=== PATIENT | female | born 1990 | race African-American/Black ===

== ENCOUNTER 2017-09-11 17:32 | Emergency (ER) | payer OTHER ==
[~2017-09-11] VITALS: Ht 152.4 cm; Wt 52.2 kg
[~2017-09-11 17:32] MED LIST: HYDR-210; PENI500T
[2017-09-11] MEDS ORDERED: IV NORMAL SALINE 1,000ML 1,000 ML IV SCH ×2 (17:35→19:18)
[2017-09-11] MEDS ORDERED: ONDANSETRON PF 4 MG/2 ML VIAL. IV ONE (17:45)
[2017-09-11 18:52] LABS: BASO # 0.1 x10^3/uL (0.0-0.2); BASO % 1 % (0-3); EOS % 0 % (0-3); HEMATOCRIT 44.9 % (36.0-47.0); HEMOGLOBIN 15.3 g/dL (12.0-15.5); LYMPH # 1.9 x10^3/uL (1.0-4.8); LYMPH % 26 % (24-48); MEAN CORPUSCULAR HEMOGLOBIN 34 pg (25-35); MEAN CORPUSCULAR HGB CONC 34 g/dL (31-37); MEAN CORPUSCULAR VOLUME 99 fL (79-100); MONO # 0.6 x10^3/uL (0.0-1.1); MONO % 8 % (0-9); NEUT # 4.7 x10^3uL (1.8-7.7); NEUT % 65 % (31-73); PLATELET COUNT 204 x10^3/uL (140-400); RED BLOOD COUNT 4.53 x10^6/uL (3.50-5.40); WHITE BLOOD COUNT 7.2 x10^3/uL (4.0-11.0)
[2017-09-11 19:04] LABS: PREG TEST PT QUAL NEGATIVE (NEG)
[2017-09-11 19:11] LABS: ALBUMIN 4.2 g/dL (3.4-5.0); CALCIUM 9.1 mg/dL (8.5-10.1); DIRECT BILIRUBIN 0.1 mg/dL (0.0-0.2); GFR 79.9; POTASSIUM 3.6 mmol/L (3.5-5.1); TOTAL BILIRUBIN 0.5 mg/dL (0.2-1.0); TOTAL PROTEIN 7.8 g/dL (6.4-8.2)
[2017-09-11] MEDS ORDERED: IOHEXOL 240 MG/ML 50ML VIAL. PO ONE (19:15)
[2017-09-11] MEDS ORDERED: CONTRAST GIVEN MC PRN (19:15)
[2017-09-11] MEDS ORDERED: IOHEXOL 300 MG/ML 75 ML VIAL. IV ONE (19:15)
[2017-09-11 19:49] LABS: BARBITURATES NEG (NEG); BENZODIAZEPINES NEG (NEG); CANNABINOIDS POS (NEG); COCAINE NEG (NEG); METHADONE NEG (NEG); OPIATES POS (NEG); PHENCYCLIDINE NEG (NEG)
[2017-09-11 19:50] LABS: AMPHETAMINE/METHAMPHETAMINE NEG (NEG)
[2017-09-11 19:56] LABS: CLARITY,URINE CLOUDY; COLOR,URINE YELLOW; GLUCOSE,URINE NEG (NEG)
[2017-09-11 19:58] LABS: BACTERIA,URINE 0 /HPF (0-FEW); BILIRUBIN,URINE NEG (NEG); NITRITE,URINE NEG (NEG); SQUAMOUS EPITHELIAL CELL,UR MOD /LPF; UROBILINOGEN,URINE 0.2 mg/dL (0.2 mg/dL)
--- NOTE | 2017-09-11 20:54 | RAD ---
CT SCAN OF THE ABDOMEN AND PELVIS WITH IV CONTRAST. History: Left lower quadrant abdominal pain nausea and vomiting and diarrhea for 2 days Comparison:None. Procedure: Contiguous axial images of the abdomen and pelvis were performed after the administration of 75 cc of Isovue 370 IV contrast and oral contrast. CT Abdomen with contrast: Findings: Liver: Unremarkable Spleen: Unremarkable Pancreas: Unremarkable Adrenal Glands: Unremarkable Kidneys: Unremarkable There is no mass or lymphadenopathy. There is no free air. There is no free fluid. There has been prior cholecystectomy. Impression: No acute findings. End Impression CT Pelvis with Contrast: Findings: The urinary bladder appears normal. There is mild free fluid in the pelvis. There is a small collapsing enhancing cyst in the right ovary that measures 10 mm x 20 mm. Is mild wall thickening of the left colon without surrounding inflammation. The appendix is normal. There is no lymphadenopathy. Impression: 1. Mild free fluid in the pelvis this is eccentric to the right and could be secondary to a ruptured ovarian cyst. This assumes the patient is not . 2. Mild wall thickening of the left colon could be secondary to nondistention however mild inflammatory or infectious colitis is possible. There is no diverticulitis. PQRS Compliance Statement: One or more of the following individualized dose reduction techniques were utilized for this examination: 1. Automated exposure control 2. Adjustment of the mA and/or kV according to patient size 3. Use of iterative reconstruction technique Electronically signed by: Chino Pena III, MD (09/11/2017 8:51 PM) [facility]
--- NOTE | 2017-09-11 21:00 | PHYS DOC ---
General Chief Complaint: ABDOMINAL PAIN Stated Complaint: ABD PAIN Time Seen by MD: 18:19 Source: patient Exam Limitations: no limitations Problems: History of Present Illness Initial Comments Patient is a 26-year-old female who arrives to the emergency department via EMS complaining of abdominal pain. Patient states that she saw her primary care doctor in [facility] earlier today. She says that she was sent to the emergency department for evaluation to rule out acute appendicitis. She states that she's had chronic abdominal pains for the past 2 years, she says she's been seen at various hospitals throughout the [facility]. She was seen in the [place] emergency department 2 nights ago for the same symptoms. Patient states that current abdominal pain complaints started this past Friday , she says she's had intermittent left lower quadrant discomfort described as sharp and crampy, severe, with decreased appetite and several episodes of nonbloody vomiting and diarrhea. She denies any travel or bad food exposure her doctor in [place] gave her atropine, morphine, and Phenergan prior to sending her here. She's had some chills but no measured fevers as well as body aches and states she really hasn't had any by mouth intake since Friday but has maintained her full work schedule. ED vitals: 98.6, 121 (normalizes to 86), 108/58, 98% room air Timing/Duration: getting worse, other Severity: severe Modifying Factors: worse with eating Associated Symptoms: loss of appetite, nausea/vomiting, other Allergies: Coded Allergies: No Known Drug Allergies (Unverified , 10/12/13) Past Medical History Medical History: no pertinent history (chronic abdominal pain) Surgical History: cholecystectomy (exploratory laparotomy) Family History Significant Family History: no pertinent family hx Social History Smoker: cigarettes Alcohol: occasionally Drugs: marijuana Review of Systems Constitutional: see HPI Respiratory: denies cough, denies shortness of breath, denies wheezing Cardiovascular: denies chest pain, denies palpitations, denies syncope Gastrointestinal: see HPI Genitourinary: denies dysuria, denies frequency, denies hematuria Musculoskeletal: denies back pain, denies joint swelling, denies neck pain Psychiatric/Neurological: denies headache, denies numbness, denies paresthesia Physical Exam General Appearance: WD/WN, no apparent distress (altered on arrival with medications, mentation cleared within one hour of arrival) Eyes: bilateral eye normal inspection, bilateral eye PERRL, bilateral eye EOMI Ear, Nose, Throat: hearing grossly normal, normal ENT inspection, normal pharynx Neck: non-tender, supple Respiratory: normal breath sounds, no respiratory distress Cardiovascular: normal peripheral pulses, regular rate, rhythm Gastrointestinal: soft (nondistended, left lower quadrant tenderness without rebound guarding or palpable mass, bowel sounds appear normal, negative McBurney ) Back: no CVA tenderness, no vertebral tenderness Extremities: non-tender, normal inspection 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 PHYSICIAN: SEAN WHATLEY DO REASON: LLQ pain - PENDING TEST PROCEDURE: CT ABD PELV W/ORAL&IV CONTRAST CT SCAN OF THE ABDOMEN AND PELVIS WITH IV CONTRAST. History: Left lower quadrant abdominal pain nausea and vomiting and diarrhea for 2 days Comparison:None. Procedure: Contiguous axial images of the abdomen and pelvis were performed after the administration of 75 cc of Isovue 370 IV contrast and oral contrast. CT Abdomen with contrast: Findings: Liver: Unremarkable Spleen: Unremarkable Pancreas: Unremarkable Adrenal Glands: Unremarkable Kidneys: Unremarkable There is no mass or lymphadenopathy. There is no free air. There is no free fluid. There has been prior cholecystectomy. Impression: No acute findings. End Impression CT Pelvis with Contrast: Findings: The urinary bladder appears normal. There is mild free fluid in the pelvis. There is a small collapsing enhancing cyst in the right ovary that measures 10 mm x 20 mm. Is mild wall thickening of the left colon without surrounding inflammation. The appendix is normal. There is no lymphadenopathy. Impression: 1. Mild free fluid in the pelvis this is eccentric to the right and could be secondary to a ruptured ovarian cyst. This assumes the patient is not . 2. Mild wall thickening of the left colon could be secondary to nondistention however mild inflammatory or infectious colitis is possible. There is no diverticulitis. RS Compliance Statement: One or more of the following individualized dose reduction techniques were utilized for this examination: 1. Automated exposure control 2. Adjustment of the mA and/or kV according to patient size 3. Use of iterative reconstruction technique Electronically signed by: Bud Naik III, MD (09/11/2017 8:51 PM) [facility] DICTATED AND SIGNED BY: BUD NAIK III, MD DATE: 09/11/172046 CC: BUD ROBERTSON MD; SEAN WHATLEY DO ~ Patient had a very prolonged ED course due to high ED patient volume. She received 4 mg of Zofran and 2 L normal saline boluses IV through her ED course. Upon receipt of all results I discussed the need for inpatient admission to monitor creatine kinase and provide intravenous hydration. I discussed rhabdomyolysis and the possibility of permanent kidney disease if left untreated. The patient was initially agreeable to admission however shortly thereafter did advise me of her wish to go home. I discussed risks and benefits of staying versus leaving extensively with the patient. Potential risks of leaving specifically discussed were permanent kidney disease, loss of quality of life, and . After discussing these issues for a prolonged period patient repeated her wishes to go home. She advised that she would sign AGAINST MEDICAL ADVICE. Although the patient did receive medications hours ago and Marisabel she hasn't received any narcotic medications at this facility and is alert and oriented exhibiting UCAR capacity. She has 2 friends at the bedside and they concur that the patient is at her baseline mental status. She is fully awake and alert with no slurring or evidence of being altered and therefore is capable of signing herself out. I discussed signs and symptoms to monitor for as well as indications for urgent return to the department. I discussed inpatient treatment extensively after her questions were answered to her satisfaction and she continued to persist with her wishes to leave AGAINST MEDICAL ADVICE. I discussed [id number] prescription medications, and time off from work, aggressive hydration, and the need to have her creatine kinase checked first thing in the morning with her primary care doctor. The patient was reassured she can return at any time and she signed herself out AGAINST MEDICAL ADVICE. Impressions: Rhabdomyolysis Gastroenteritis Dehydration Acute on chronic abdominal pain Marijuana and tobacco abuse Departure Time of Disposition: 22:16 Disposition: 07 AGAINST MEDICAL ADVICE Diagnosis: infectious colitis, rhabdomyolysis Condition: STABLE Patient Instructions: Rhabdomyolysis, Viral Gastroenteritis, [id number] Additional Instructions: As discussed you have chosen to sign out AGAINST MEDICAL ADVICE. You understand you may return at any time for further evaluation and treatment. Off work through Friday. Aggressive hydration with Gatorade and water. Recommend stop smoking seek medical assistance if necessary. Prescription: [place] 5 mg quantity 10, dicyclomine, Zofran ODT Recommended you follow-up with a doctor tomorrow morning to recheck your creatine kinase (1037 in ED tonight). Return to ED with new or changing symptoms and as needed. SEAN WHATLEY DO Sep 11, 2017 21:00
[2017-09-11 21:26] VITALS: BP 105/55
[2017-09-11] MEDS ORDERED: HYDR-971 PO (22:16)
[2017-09-11] MEDS ORDERED: DICY20TA3 PO (22:16)
[2017-09-11] MEDS ORDERED: ONDA4TAB10 PO (22:16)
== END 2017-09-11 22:34 | disposition left against medical advice (07) ==
LOC: ER 17:32
DX: A09 Infectious gastroenteritis and colitis, unspecified (principal); M62.82 Rhabdomyolysis; E86.0 Dehydration; G89.29 Other chronic pain; F17.210 Nicotine dependence, cigarettes, uncomplicated; F12.10 Cannabis abuse, uncomplicated; Z90.49 Acquired absence of other specified parts of digestive tract
CPT/HCPCS: 36415; 74177; 80048; 80076; 80307; 81001; 82550; 83690; 84703; 85025; 85610; 85730; 87086; 96360; 96361; 99285; G0480; Q9966; Q9967; G0479; J7030

== ENCOUNTER 2019-01-22 10:51 | Emergency (ER) | payer SELFPAY ==
[~2019-01-22] VITALS: Ht 152.4 cm; Wt 59.0 kg
[~2019-01-22 10:51] MED LIST changes: +DICY20TA3 PO; +HYDR-3165 PO; +ONDA4TAB10 PO
[2019-01-22] MEDS ORDERED: IV RINGERS SOLUTION,LACTATED 1,000 ML IV SCH (11:09)
[2019-01-22] MEDS ORDERED: IOHEXOL 240 MG/ML 50ML VIAL. ONE (11:15)
--- NOTE | 2019-01-22 11:19 | PHYS DOC ---
Past History Past Medical History: No Pertinent History Past Surgical History: Cholecystectomy, , Other Additional Past Surgical Histo: exploratory laparoscopy Smoking: Cigarettes, Less than 1pk/day Alcohol Use: Occasionally Drug Use: Marijuana Adult General Chief Complaint Chief Complaint: ABDOMINAL PAIN HPI HPI Patient is a 28-year-old female presents with left lower quadrant abdominal pain , nausea, vomiting, diarrhea. This has been present various forms, waxing and waning for the past week or so. Patient was recently admitted and discharged from [facility], as well as being seen last night and receiving IV fluids for this condition. Patient is working on arranging GI follow-up for this. This has been more of a long-term issue as well. Some of the previous diagnoses include ulcerative colitis, Crohn's, as well as cyclic vomiting. Patient denies any recent use of cannabinoids, last use being several weeks ago. Denies any other recreational drugs. Denies any relief with the medications that aren't prescribed to include ondansetron and Compazine both as pills as well as suppositories. Denies any blood in the stool or emesis. Denies any recent travel, no trauma. No Recent changes in weight. Warmth seems to make the discomfort better.[] Review of Systems Review of Systems Constitutional: Denies fever or chills [] Eyes: Denies change in visual acuity, redness, or eye pain [] HENT: Denies nasal congestion or sore throat [] Respiratory: Denies cough or shortness of breath [] Cardiovascular: No chest pain or palpitations[] GI: See history of present illness[] : Denies dysuria or hematuria [] Musculoskeletal: Denies back pain or joint pain [] Integument: Denies rash or skin lesions [] Neurologic: Denies headache, focal weakness or sensory changes [] Endocrine: Denies polyuria or polydipsia [] All other systems were reviewed and found to be within normal limits, except as documented in this note. Current Medications Current Medications Current Medications Medications (Trade) Dose Ordered Sig/Geni Start Time Stop Time Status Last Admin Dose Admin Hyoscyamine (Anaspaz) 0.25 mg 1X ONCE 01/22/19 11:15 01/22/19 11:16 UNV Lactated Ringer's 1,000 ml @ 1,000 mls/hr Q1H 01/22/19 11:09 01/22/19 12:08 UNV Metoclopramide HCl (Reglan Vial) 10 mg 1X ONCE 01/22/19 11:15 01/22/19 11:16 UNV Allergies Allergies Allergies Coded Allergies Type Severity Reaction Last Updated Verified No Known Drug Allergies 10/12/13 No Physical Exam Physical Exam Constitutional: Well developed, well nourished, moderate discomfort, non-toxic appearance. [] HENT: Normocephalic, atraumatic, bilateral external ears normal, oropharynx moist, no oral exudates, nose normal. [] Eyes: PERRLA, EOMI, conjunctiva normal, no discharge. [] Neck: Normal range of motion, no tenderness, supple, no stridor. [] Cardiovascular:Heart rate regular rhythm, no murmur [] Lungs & Thorax: Bilateral breath sounds clear to auscultation [] Abdomen: Bowel sounds normal, soft, tenderness in the left lower quadrant, no rebound, no guarding, no rigidity, rolls over in the bed without any difficulty , on initial walking into the room, patient was laying prone on the bed with the back of the bed slightly up causing her to extend her abdomen, no masses, no pulsatile masses. [] Skin: Warm, dry, no erythema, no rash. [] Back: No tenderness, no CVA tenderness. [] Extremities: No tenderness, no cyanosis, no clubbing, ROM intact, no edema. [] Neurologic: Alert and oriented X 3, normal motor function, normal sensory function, no focal deficits noted. [] Psychologic: Affect normal, judgement normal, mood normal. [] EKG EKG [] Radiology/Procedures Radiology/Procedures Examination: CT ABD PELV W/ORAL IV CONTRAST History: LLQ PAIN N/V FOR 2 DAYS Comparison/Correlation: 09/11/2017 CT abdomen and pelvis with IV contrast Findings: Axial images of the abdomen and pelvis were obtained following IV contrast. Sagittal and coronal reformatted images were provided. Oral contrast was administered. Degenerative narrowing bases are clear. Cholecystectomy noted. Liver, spleen, pancreas, adrenal glands, and kidneys are unremarkable. Appendix is normal. No bowel obstruction or extraluminal gas. Moderate quantity of stool in the colon noted. No ascites or pelvic free fluid. Enlarged fibroid uterus noted. Right adnexal 2.7 cm x 1.5 cm cystic structure is probably physiologic. No enlarged abdominal or pelvic lymph nodes. Bilateral L5 pars interarticularis fractures are present without malalignment of the vertebral bodies. Impression: Right adnexal cyst is physiologic in appearance. Fibroid uterus. No suspicious acute inflammatory process involving abdomen or pelvis. Bilateral L5 pars interarticularis fractures are present unchanged upon correlation with the prior exam[] Course & Med Decision Making Course & Med Decision Making Pertinent Labs and Imaging studies reviewed. (See chart for details) ED course: Patient arrived, placed in bed, and tolerated exam well. She received IV fluids along with antiemetics and antispasmodics. She was reporting feeling better but not fully so an additional dose of antispasmodics were given intramuscularly. She was able to tolerate oral contrast. She was transported to and from [place] without any complications. After the return of the laboratory and imaging findings, these were discussed with the patient who voiced understanding. All questions were answered. Medical decision making: There does not appear to be intractable nausea or vomiting, no significant electrolyte abnormality, no evidence of urinary tract infection or pyelonephritis. No evidence of intra-abdominal significant issue in the location of her pain in the left lower quadrant. No diverticulitis, obstruction, perforation, and based on history and exam no evidence of tubo- ovarian abscess nor ovarian torsion. Patient does need to follow up with GI. Also concerned about possibility of cannabinoid hyperemesis syndrome given her desire for warm blankets in the location of the discomfort along with a positive drug screen for cannabinoids when she reports that she has not used any for 6 weeks.[] Dragon Disclaimer Dragon Disclaimer This electronic medical record was generated, in whole or in part, using a voice recognition dictation system. Departure Departure: Impression: Primary Impression: Abdominal pain Additional Impression: Nausea vomiting and diarrhea Disposition: HOME, SELF-CARE Condition: IMPROVED Referrals: BUD ROBERTSON MD (PCP) Follow-up in 2 days Patient Instructions: Abdominal Pain, Diet for Diarrhea, Adult, Nausea and Vomiting Additional Instructions: Drink plenty of fluids, frequent small sips. No fatty foods, no milk, and no pepper for the next 48 hours. For the next 48 hours eat a diet rich in carbohydrates with foods such as bananas, rice, applesauce, and toast. Follow- up with your doctor in 2 days. Do not use any drugs or medications that are not prescribed for you, they may kill you. Return to the ER if unable to tolerate liquids or any other concerns. Scripts Metoclopramide Hcl (REGLAN) 10 Mg Tablet 10 MG PO QID for nausea and vomiting, #30 TAB Prov: ISATU GARRIDO DO 01/22/19 Meloxicam (MELOXICAM) 7.5 Mg Tablet 7.5 MG PO DAILY for PAIN, #20 TAB Prov: ISATU GARRIDO DO 01/22/19 Hyoscyamine Sulfate (LEVSIN) 0.125 Mg Tablet 0.125 MG PO QID for abdominal pain/cramping, #30 TAB Prov: ISATU GARRIDO DO 01/22/19 Problem Qualifiers Primary Impression: Abdominal pain Abdominal location: unspecified location Qualified Codes: R10.9 - Unspecified abdominal pain ISATU GARRIDO DO Jan 22, 2019 11:19
[2019-01-22 11:35] LABS: BASO # 0.1 x10^3/uL (0.0-0.2); BASO % 1 % (0-3); EOS % 1 % (0-3); HEMATOCRIT 42.6 % (36.0-47.0); HEMOGLOBIN 14.8 g/dL (12.0-15.5); LYMPH # 2.9 x10^3/uL (1.0-4.8); LYMPH % 35 % (24-48); MEAN CORPUSCULAR HEMOGLOBIN 34 pg (25-35); MEAN CORPUSCULAR HGB CONC 35 g/dL (31-37); MEAN CORPUSCULAR VOLUME 98 fL (79-100); MONO # 0.7 x10^3/uL (0.0-1.1); MONO % 9 % (0-9); NEUT # 4.6 x10^3uL (1.8-7.7); NEUT % 55 % (31-73); PLATELET COUNT 341 x10^3/uL (140-400); RED BLOOD COUNT 4.34 x10^6/uL (3.50-5.40); RED CELL DISTRIBUTION WIDTH 13.9 % (11.5-14.5); WHITE BLOOD COUNT 8.4 x10^3/uL (4.0-11.0)
[2019-01-22] MEDS ORDERED: HYOSCYAMINE 0.125 MG TAB.RAPDIS PO ONE (11:45)
[2019-01-22] MEDS ORDERED: METOCLOPRAMIDE HCL 10 MG/2 ML VIAL. IV ONE (11:45)
[2019-01-22] MEDS ORDERED: KETOROLAC 15 MG/ML VIAL. ONE (11:45)
[2019-01-22 11:48] LABS: ALBUMIN/GLOBULIN RATIO 1.2 (1.0-1.7); CALCIUM 8.7 mg/dL (8.5-10.1); CREATININE 0.8 mg/dL (0.6-1.0); GFR 101.9; TOTAL BILIRUBIN 0.6 mg/dL (0.2-1.0); TOTAL PROTEIN 7.4 g/dL (6.4-8.2)
[2019-01-22] MEDS ORDERED: IOHEXOL 300 MG/ML 75 ML VIAL. IV ONE (11:55)
[2019-01-22] MEDS ORDERED: KETOROLAC 15 MG/ML VIAL. IV ONE (12:00)
[2019-01-22 12:05] LABS: AMPHETAMINE/METHAMPHETAMINE NEG (NEG); BARBITURATES NEG (NEG); BENZODIAZEPINES NEG (NEG); CANNABINOIDS POS (NEG); COCAINE NEG (NEG); METHADONE NEG (NEG); OPIATES NEG (NEG); PHENCYCLIDINE NEG (NEG)
[2019-01-22] MEDS ORDERED: DICYCLOMINE 20 MG/2 ML AMPUL. IM ONE (13:15)
--- NOTE | 2019-01-22 13:22 | RAD ---
Examination: CT ABD PELV W/ORAL IV CONTRAST History: LLQ PAIN N/V FOR 2 DAYS Comparison/Correlation: 09/11/2017 CT abdomen and pelvis with IV contrast Findings: Axial images of the abdomen and pelvis were obtained following IV contrast. Sagittal and coronal reformatted images were provided. Oral contrast was administered. Degenerative narrowing bases are clear. Cholecystectomy noted. Liver, spleen, pancreas, adrenal glands, and kidneys are unremarkable. Appendix is normal. No bowel obstruction or extraluminal gas. Moderate quantity of stool in the colon noted. No ascites or pelvic free fluid. Enlarged fibroid uterus noted. Right adnexal 2.7 cm x 1.5 cm cystic structure is probably physiologic. No enlarged abdominal or pelvic lymph nodes. Bilateral L5 pars interarticularis fractures are present without malalignment of the vertebral bodies. Impression: Right adnexal cyst is physiologic in appearance. Fibroid uterus. No suspicious acute inflammatory process involving abdomen or pelvis. Bilateral L5 pars interarticularis fractures are present unchanged upon correlation with the prior exam PQRS Compliance Statement: One or more of the following individualized dose reduction techniques were utilized for this examination: 1. Automated exposure control 2. Adjustment of the mA and/or kV according to patient size 3. Use of iterative reconstruction technique Electronically signed by: Steve Rosario MD (01/22/2019 1:19 PM) [facility]
[2019-01-22 14:02] LABS: BACTERIA,URINE MOD /HPF (0-FEW); BILIRUBIN,URINE NEG (NEG); CLARITY,URINE HAZY; COLOR,URINE YELLOW; GLUCOSE,URINE NEG (NEG); NITRITE,URINE NEG (NEG); UROBILINOGEN,URINE 0.2 mg/dL (0.2 mg/dL)
[2019-01-22 14:03] LABS: SQUAMOUS EPITHELIAL CELL,UR MOD /LPF
[2019-01-22] MEDS ORDERED: MELO7.5T29 PO (14:12)
[2019-01-22] MEDS ORDERED: METO10TA81 PO (14:12)
[2019-01-22] MEDS ORDERED: HYOS0.1264 PO (14:12)
[2019-01-22 14:32] VITALS: BP 123/75
== END 2019-01-22 14:41 | disposition home or self-care (01) ==
LOC: ER 10:51
DX: R10.32 Left lower quadrant pain (principal); R11.2 Nausea with vomiting, unspecified; R19.7 Diarrhea, unspecified; F17.210 Nicotine dependence, cigarettes, uncomplicated; Z90.49 Acquired absence of other specified parts of digestive tract; Z98.890 Other specified postprocedural states
CPT/HCPCS: 36415; 74177; 80053; 80307; 81001; 81025; 83690; 85025; 85610; 87086; 96361; 96372; 96374; 96375; 99285; J0500; J1885; J2765; J7120; Q9967

== ENCOUNTER 2019-12-01 10:44 | Emergency (ER) | payer SELFPAY ==
[~2019-12-01] VITALS: Ht 152.4 cm; Wt 62.0 kg
[~2019-12-01 10:44] MED LIST changes: +HYOS0.1264 PO; +MELO7.5T29 PO; +METO10TA81 PO
[2019-12-01] MEDS ORDERED: FAMOTIDINE 20 MG/2 ML VIAL IVP ONE (11:45)
[2019-12-01] MEDS ORDERED: ONDANSETRON PF 4 MG/2 ML VIAL. IVP ONE (11:45)
[2019-12-01] MEDS ORDERED: MVI, ADULT NO.4 WITH VIT K 10 ML, FOLIC ACID INJ 1 MG, THIAMINE INJ 100 MG in IV RINGER... IV ONE ×4 (11:45)
[2019-12-01 12:00] LABS: BASO # 0.1 x10^3/uL (0.0-0.2); BASO % 1 % (0-3); EOS % 0 % (0-3); HEMATOCRIT 40.1 % (36.0-47.0); HEMOGLOBIN 13.2 g/dL (12.0-15.5); LYMPH # 1.9 x10^3/uL (1.0-4.8); LYMPH % 16 % (24-48); MEAN CORPUSCULAR HEMOGLOBIN 33 pg (25-35); MEAN CORPUSCULAR HGB CONC 33 g/dL (31-37); MEAN CORPUSCULAR VOLUME 100 fL (79-100); MONO # 0.6 x10^3/uL (0.0-1.1); MONO % 5 % (0-9); NEUT # 9.1 x10^3uL (1.8-7.7); NEUT % 78 % (31-73); PLATELET COUNT 277 x10^3/uL (140-400); RED BLOOD COUNT 4.01 x10^6/uL (3.50-5.40); RED CELL DISTRIBUTION WIDTH 14.5 % (11.5-14.5); WHITE BLOOD COUNT 11.7 x10^3/uL (4.0-11.0)
[2019-12-01 12:09] LABS: CALCIUM 8.7 mg/dL (8.5-10.1); CREATININE 0.5 mg/dL (0.6-1.0); GFR 174.1; POTASSIUM 3.8 mmol/L (3.5-5.1)
[2019-12-01 12:15] LABS: ALBUMIN 3.7 g/dL (3.4-5.0); ALBUMIN/GLOBULIN RATIO 1.2 (1.0-1.7); MAGNESIUM 1.8 mg/dL (1.8-2.4); TOTAL BILIRUBIN 0.2 mg/dL (0.2-1.0); TOTAL PROTEIN 6.9 g/dL (6.4-8.2)
[2019-12-01] MEDS ORDERED: diphenhydrAMINE 50 MG/ML VIAL IVP ONE (12:15)
[2019-12-01] MEDS ORDERED: METOCLOPRAMIDE HCL 10 MG/2 ML VIAL. IVP ONE (12:15)
--- NOTE | 2019-12-01 12:15 | PHYS DOC ---
Past History Past Medical History: Other Past Surgical History: Cholecystectomy, , Other Additional Past Surgical Histo: exploratory laparoscopy Smoking: Cigarettes, Less than 1pk/day Alcohol Use: Occasionally Drug Use: Marijuana Adult General Chief Complaint Chief Complaint: ABDOMINAL PAIN HPI HPI Patient is a 29-year-old female who presents to the ED with abdominal pain and nausea/vomiting. Patient is in her 8th week of gestation. Patient stated that her abdominal pain began at roughly 0500 this morning with nausea/vomiting ass ociated with it. She describes as a burning left sided abdominal pain. The pain is constant in nature. She states that the pain radiates from her left upper quadrant to the left lower quadrant. She has vomited approximately 20 times. She tried 4 mg of Zofran this morning and a Phenergan suppository without improvement of her symptoms. She currently rates her pain as a 10 out of 10. History of present illness is limited due to patient noncooperation and agitation due to abdominal discomfort. Reports history of recent admission for same. Review of Systems Review of Systems Constitutional: Denies fever or chills GI: Admits abdominal pain, nausea, or vomiting : Denies vaginal bleeding, admits vaginal discharge at her baseline Integument: Denies rash or skin lesions Review of systems limited due to patient's noncooperation and agitated secondary to abdominal discomfort Current Medications Current Medications Current Medications Medications (Trade) Dose Ordered Sig/Geni Start Time Stop Time Status Last Admin Dose Admin Famotidine (Pepcid Vial) 20 mg 1X ONCE 12/01/19 11:45 12/01/19 11:46 DC 12/01/19 11:53 20 MG Multivitamins/ Minerals 10 ml/ Folic Acid 1 mg/ Thiamine HCl 100 mg/Lactated Ringer's 1,011.3 ml @ 1,011.3 mls/hr 1X ONCE 12/01/19 11:45 12/01/19 12:44 Ondansetron HCl (Zofran) 4 mg 1X ONCE 12/01/19 11:45 12/01/19 11:46 DC 12/01/19 11:54 4 MG Allergies Allergies Allergies Coded Allergies Type Severity Reaction Last Updated Verified haloperidol Allergy Unknown 01/22/19 Yes Physical Exam Physical Exam Constitutional: Well developed, well nourished, mild distress, uncomfortable appearance HENT: Normocephalic, atraumatic, oropharynx dry Eyes: EOMI, conjunctiva normal, no discharge Cardiovascular: Heart rate rapid with a regular rhythm Lungs & Thorax: Bilateral breath sounds clear to auscultation, no wheezing Abdomen: Soft, left-sided tenderness to palpation Skin: Warm, dry, no erythema, no rash Extremities: No tenderness, ROM intact, no edema Neurologic: Alert and oriented, no focal deficits noted Psychologic: Affect agitated and anxious, judgment normal Current Patient Data Lab Results Laboratory Tests Test 12/01/19 11:35 White Blood Count 11.7 x10^3/uL (4.0-11.0) H Red Blood Count 4.01 x10^6/uL (3.50-5.40) Hemoglobin 13.2 g/dL (12.0-15.5) Hematocrit 40.1 % (36.0-47.0) Mean Corpuscular Volume 100 fL (79-100) Mean Corpuscular Hemoglobin 33 pg (25-35) Mean Corpuscular Hemoglobin Concent 33 g/dL (31-37) Red Cell Distribution Width 14.5 % (11.5-14.5) Platelet Count 277 x10^3/uL (140-400) Neutrophils (%) (Auto) 78 % (31-73) H Lymphocytes (%) (Auto) 16 % (24-48) L Monocytes (%) (Auto) 5 % (0-9) Eosinophils (%) (Auto) 0 % (0-3) Basophils (%) (Auto) 1 % (0-3) Neutrophils # (Auto) 9.1 x10^3uL (1.8-7.7) H Lymphocytes # (Auto) 1.9 x10^3/uL (1.0-4.8) Monocytes # (Auto) 0.6 x10^3/uL (0.0-1.1) Eosinophils # (Auto) 0.0 x10^3/uL (0.0-0.7) Basophils # (Auto) 0.1 x10^3/uL (0.0-0.2) EKG EKG [] Radiology/Procedures Radiology/Procedures PROCEDURE: OB <14 WKS W/TV Examination: OB <14 WKS W/TV History: Abdominal pain Comparison/Correlation: None Findings: OB ultrasound exam was performed. Myometrium is unremarkable. No subchorionic hemorrhage. Intrauterine gestational sac is present. pole is present with length of 1.81 cm corresponding to 8 weeks 2 days. heart rate is 173 bpm. Small echogenic foci present involving the pole without shadowing and these are of indeterminate significance. Myometrium is unremarkable. Ultrasound EDC is 07/10/2020 Uterus measures 12.5 cm x 3.5 cm x 6.4 cm. Myometrium is normal. Cervical length is 5.03 cm. Right ovary measures 2.5 cm x 1.9 cm x 1.3 cm left ovary measures 2.2 cm x 1.4 cm x 1.6 cm. No adnexal mass. No pelvic free fluid. Impression: Single living intrauterine gestation corresponding to 8 weeks 2 days by crown-rump length. Echogenic foci are present involving the pole and are of indeterminate significance. No shadowing definite for calcification. Interval follow-up ultrasound examination for further evaluation should be considered. No subchronic hemorrhage. Electronically signed by: Steve Rosario MD (12/01/2019 2:25 PM) [facility] Course & Med Decision Making Course & Med Decision Making Pertinent Labs and Imaging studies reviewed. (See chart for details) History of present illness and ROS limited due to patient's noncooperation and agitated secondary to abdominal discomfort Patient is a 29-year-old 8 week female who presents to the ED with acute abdominal pain and nausea/vomiting. He was found she states the abdominal pain and vomiting started at 0500 this morning. She describes her pain as a constant burning pain located on the left side. She states that it radiates from her left upper quadrant into her left lower quadrant. She has nausea/vomiting associated with the pain. She tried Zofran and a Phenergan suppository at home with no improvement of her symptoms. She rates it as a 10 out of 10. Hx of recent admission for same at outside facility. In the ED she was evaluated for emergent causes of abdominal pain in . An abdominal ultrasound was ordered and showed IUG which appeared appropriate. Appropriate labs were ordered and posted to chart. She was given IV banana bag for dehydration and replacement of any deficit vitamins for . Pain and nausea addressed appropriately. UA did note some mild ketosis. UDS positive f or THC. Patient advised of risk of THC abuse and association with cyclic vomiting syndrome. Patient reports she has "heard all that before." Patient stable for discharge with outpatient follow-up with PCP/OB. Discussed findings and plan with patient, who acknowledges understanding and agreement. Dragon Disclaimer Dragon Disclaimer This electronic medical record was generated, in whole or in part, using a voice recognition dictation system. Departure Departure: Impression: Primary Impression: Cyclic vomiting syndrome Additional Impressions: Hyperemesis gravidarum Tetrahydrocannabinol (THC) use disorder, mild, abuse Disposition: 01 HOME, SELF-CARE Condition: STABLE Referrals: BUD ROBERTSON MD (PCP) Patient Instructions: Cyclic Vomiting Syndrome, Drug Abuse, FAQs, Hyperemesis Gravidarum Scripts Capsaicin (CAPSAICIN) 42.5 Gm Cream..g. 1 MARILY TP TID PRN for PAIN, #1 TUBE 0 Refills 0.025% Prov: RUBÉN WALL DO 12/01/19 Famotidine (PEPCID) 20 Mg Tablet 1 TAB PO BID for gastritis, #10 TAB Prov: RUBÉN WALL DO 12/01/19 Ondansetron (ONDANSETRON ODT) 4 Mg Tab.rapdis 1 TAB PO PRN Q6-8HRS PRN for NAUSEA, #16 TAB Prov: RUBÉN WALL DO 12/01/19 Problem Qualifiers RUBÉN WALL DO Dec 01, 2019 12:15
--- NOTE | 2019-12-01 14:28 | RAD ---
Examination: OB <14 WKS W/TV History: Abdominal pain Comparison/Correlation: None Findings: OB ultrasound exam was performed. Myometrium is unremarkable. No subchorionic hemorrhage. Intrauterine gestational sac is present. pole is present with length of 1.81 cm corresponding to 8 weeks 2 days. heart rate is 173 bpm. Small echogenic foci present involving the pole without shadowing and these are of indeterminate significance. Myometrium is unremarkable. Ultrasound EDC is 07/10/2020 Uterus measures 12.5 cm x 3.5 cm x 6.4 cm. Myometrium is normal. Cervical length is 5.03 cm. Right ovary measures 2.5 cm x 1.9 cm x 1.3 cm left ovary measures 2.2 cm x 1.4 cm x 1.6 cm. No adnexal mass. No pelvic free fluid. Impression: Single living intrauterine gestation corresponding to 8 weeks 2 days by crown-rump length. Echogenic foci are present involving the pole and are of indeterminate significance. No shadowing definite for calcification. Interval follow-up ultrasound examination for further evaluation should be considered. No subchronic hemorrhage. Electronically signed by: Steve Rosario MD (12/01/2019 2:25 PM) [facility]
[2019-12-01 15:02] LABS: BARBITURATES NEG (NEG); BENZODIAZEPINES NEG (NEG); CANNABINOIDS POS (NEG); COCAINE NEG (NEG); METHADONE NEG (NEG); OPIATES NEG (NEG); PHENCYCLIDINE NEG (NEG)
[2019-12-01 15:03] LABS: AMPHETAMINE/METHAMPHETAMINE NEG (NEG)
[2019-12-01 15:14] LABS: BACTERIA,URINE 0 /HPF (0-FEW); BILIRUBIN,URINE NEG (NEG); CLARITY,URINE CLEAR; COLOR,URINE YELLOW; GLUCOSE,URINE NEG (NEG); NITRITE,URINE NEG (NEG); RBC,URINE 0 /HPF (0-2); SQUAMOUS EPITHELIAL CELL,UR OCC /LPF; UROBILINOGEN,URINE 0.2 mg/dL (0.2 mg/dL); WBC,URINE 0 /HPF (0-4)
[2019-12-01] MEDS ORDERED: ONDANSETRON ODT 4 MG TAB.RAPDIS PO ONE (15:15)
[2019-12-01] MEDS ORDERED: FAMO-63 PO (15:35)
[2019-12-01] MEDS ORDERED: ONDA4TAB12 PO (15:35)
[2019-12-01] MEDS ORDERED: CAPS42.513 TP (15:50)
[2019-12-01 15:58] VITALS: BP 148/93
== END 2019-12-01 16:14 | disposition home or self-care (01) ==
LOC: ER 10:44
DX: O21.0 Mild hyperemesis gravidarum (principal); F15.10 Other stimulant abuse, uncomplicated; O99.331 Smoking (tobacco) complicating pregnancy, first trimester; F12.10 Cannabis abuse, uncomplicated; Z88.8 Allergy status to other drugs, medicaments and biological substances; Z3A.08 8 weeks gestation of pregnancy
CPT/HCPCS: 36415; 76801; 76817; 80053; 80307; 81001; 83690; 83735; 84702; 85025; 96365; 96366; 96372; 96375; 99285; G0480; J1200; J2060; J2405; J2765; J3490; J7120; Q0162

== ENCOUNTER 2019-12-02 01:35 | Emergency (ER) | payer SELFPAY ==
[~2019-12-02] VITALS: Ht 152.4 cm; Wt 62.0 kg
[~2019-12-02 01:35] MED LIST changes: +CAPS42.513 TP; +FAMO-63 PO; +ONDA4TAB12 PO
--- NOTE | 2019-12-02 01:37 | PHYS DOC ---
Past History Past Medical History: Anxiety, Constipation, Fibromyalgia, IBS, Other Additional Past Medical Histor: hyperemesis gravidarum Past Medical History History of cyclic vomiting, history of colitis, Past Surgical History: Cholecystectomy, , Other Additional Past Surgical Histo: exploratory laparoscopy Smoking: Cigarettes, Less than 1pk/day Alcohol Use: Occasionally Drug Use: Marijuana Adult General Chief Complaint Chief Complaint: ".. .I am still vomiting.. I can't quit... ".. I was just here... " HPI HPI Patient is a 29 year old female who presents with above hx and complaints hyperemesis gravidarum. Patient has history of cyclic vomiting, chronic marijuana use, and chronic constipation. Pt. seen last shift by Dr Paniagua. Patient was given prescription for Capsaicin, Pepcid, and Zofran. Patient denies any intake of bad food. Has not been able to keep food down since she left here on the . Pt. states she has vomited a 100 times since leaving here on . Pt. did vomit approximately 250 mL of yellow fluid while in the emergency department. Patient reportedly used Zofran at home with no relief. Patient normally follows at [place], [place] for care . Has reportedly moved to [facility]. Has no planned hospital for delivery. History gravid 3-2 deliveries. Denies hx of STD . Pt. follows with Dr Robertson in past. US yesterday showed a IUP 8 weeks and 2 days. No adnexal mass or free fluids. Patient currently states she is too sick to have re exam. Patient did allow limited exam of chest and abdomen. Patient does not do vitamins. Patient has had previous evaluations for cyclic vomiting, chronic pain, cholecystectomy, ovarian cyst, dysmenorrhea, dehydration, and fibromyalgia. Has had laparotomy evaluations of her abdomen as well as a . Patient did not get flu vaccination this season. Pt. rates her pain as 10/10, and states this not changed from visit yesterday. Pt. requesting admission. Pt. very poor historian beata, her main response to see record from yesterday. Pt. has been exposed to mother who was in ED yesterday for acute gastroenteritis. No recent travel. Patient denies any history immunosuppression. Review of Systems Review of Systems Constitutional: subjective history fever or chills [] Eyes: Denies change in visual acuity, redness, or eye pain [] HENT: Denies nasal congestion or sore throat [] Respiratory: Denies cough or shortness of breath [] Cardiovascular: No additional information not addressed in HPI [] GI: History of abdominal pain, nausea, vomiting,. Denies bloody stools or diarrhea. History of constipation. Did vomit in ED- yellow fluid. : Denies dysuria or hematuria [] Musculoskeletal: Denies back pain or joint pain [] Integument: Denies rash or skin lesions [] Neurologic: Denies headache, focal weakness or sensory changes [] Endocrine: Denies polyuria or polydipsia [] All other systems were reviewed and found to be within normal limits, except as documented in this note. Family History Family History Refuses family history (States that not important Current Medications Current Medications See nursing for home meds- (Pt. current says just check the chart) Allergies Allergies Allergies Coded Allergies Type Severity Reaction Last Updated Verified haloperidol Allergy Unknown 01/22/19 Yes Physical Exam Physical Exam Constitutional: Reports moderate acute distress, non-toxic appearance. [] HENT: Normocephalic, atraumatic, bilateral external ears normal, oropharynx dry, no oral exudates, nose swollen turbinates and clear rhinorrhea Eyes: PERRLA, EOMI, conjunctiva normal, no discharge. [] Neck: Normal range of motion, no tenderness, supple, no stridor. [] Cardiovascular: Tachycardia Heart rate regular rhythm, no murmur [] Lungs & Thorax: Bilateral breath sounds equal at apex with scattered wheezes on auscultation [] Abdomen: Bowel sounds decreased,, soft, generalized tenderness, distended, but refuses rectal or pelvic exam , old surgery scars., no pulsatile masses. No focal areas of rebound Skin: Warm, dry, no erythema, no rash. [] Back: No tenderness, no CVA tenderness. [] Extremities: No tenderness, no cyanosis, no clubbing, ROM intact, no edema. No true psoas sign. No cording noted. Neurologic: Alert and oriented X 3, normal motor function, normal sensory function, no focal deficits noted. []DTR + 2 at patella. Psychologic: Affect angry, agitated and argumentative, judgement normal, mood normal. [] EKG EKG [] Radiology/Procedures Radiology/Procedures Reviewed ultrasound of yesterday[] Course & Med Decision Making Course & Med Decision Making Pertinent Labs and Imaging studies reviewed. (See chart for details) Discussed presentation testing and treatment plan with Dr. Felix- will accept pt in transfer to [facility]. Impression: 1. Hyperemesis gravidarum 2. Chronic tobacco and marijuana use 3. Dehydration 4. Gravid 8 weeks 2 days- via US 12/01 5. Elevated Leukocytosis 16.1- 88 Segs 6. BHCG= 150,107 7. Blood Type O positive [] Dragon Disclaimer Dragon Disclaimer This electronic medical record was generated, in whole or in part, using a voice recognition dictation system. Departure Departure: Disposition: 01 HOME/RESIDENCE PRIOR TO ADM Condition: STABLE Referrals: BUD ROBERTSON MD (PCP) Shayne Disclaimer This chart was dictated in whole or in part using Voice Recognition software in a busy, high-work load, and often noisy Emergency Department environment. It may contain unintended and wholly unrecognized errors or omissions. DONN PRAJAPATI MD Dec 02, 2019 01:37
[2019-12-02] MEDS ORDERED: diphenhydrAMINE 50 MG/ML VIAL IVP ONE (02:00)
[2019-12-02] MEDS ORDERED: FAMOTIDINE 20 MG/2 ML VIAL IVP ONE (02:00)
[2019-12-02] MEDS ORDERED: PROMETHAZINE 25 MG SUPP.RECT. PR ONE (02:00)
[2019-12-02] MEDS ORDERED: ONDANSETRON PF 4 MG/2 ML VIAL. IVP ONE (02:00)
[2019-12-02] MEDS ORDERED: IV RINGERS SOLUTION,LACTATED 1,000 ML IV SCH (02:00)
[2019-12-02 03:27] LABS: BASO # 0.1 x10^3/uL (0.0-0.2); BASO % 0 % (0-3); EOS % 0 % (0-3); HEMATOCRIT 38.9 % (36.0-47.0); HEMOGLOBIN 12.9 g/dL (12.0-15.5); LYMPH # 1.2 x10^3/uL (1.0-4.8); LYMPH % 8 % (24-48); MEAN CORPUSCULAR HEMOGLOBIN 33 pg (25-35); MEAN CORPUSCULAR HGB CONC 33 g/dL (31-37); MEAN CORPUSCULAR VOLUME 100 fL (79-100); MONO # 0.9 x10^3/uL (0.0-1.1); MONO % 6 % (0-9); NEUT # 13.9 x10^3uL (1.8-7.7); NEUT % 86 % (31-73); PLATELET COUNT 287 x10^3/uL (140-400); RED BLOOD COUNT 3.89 x10^6/uL (3.50-5.40); RED CELL DISTRIBUTION WIDTH 14.9 % (11.5-14.5); WHITE BLOOD COUNT 16.1 x10^3/uL (4.0-11.0)
[2019-12-02 03:34] LABS: CALCIUM 8.9 mg/dL (8.5-10.1); CREATININE 0.6 mg/dL (0.6-1.0); GFR 141.1; POTASSIUM 3.6 mmol/L (3.5-5.1)
[2019-12-02 03:41] LABS: ALBUMIN 3.8 g/dL (3.4-5.0); DIRECT BILIRUBIN 0.1 mg/dL (0.0-0.2); TOTAL BILIRUBIN 0.3 mg/dL (0.2-1.0); TOTAL PROTEIN 6.8 g/dL (6.4-8.2)
[2019-12-02 03:46] LABS: INFLUENZA A PATIENT NEGATIVE (NEGATIVE); INFLUENZA B PATIENT NEGATIVE (NEGATIVE)
[2019-12-02 04:00] VITALS: BP 147/82
[2019-12-02] MEDS ORDERED: IV RINGERS SOLUTION,LACTATED 1,000 ML IV ONE (04:15)
[2019-12-02 04:29] LABS: % LYMPHS 10 % (24-48); % MONOS 2 % (0-10); % SEGS 88 % (35-66); PLT ESTIMATE ADEQUATE (ADEQUATE)
[2019-12-02 04:45] LABS: BARBITURATES NEG (NEG); BENZODIAZEPINES NEG (NEG); CANNABINOIDS POS (NEG); COCAINE NEG (NEG); METHADONE NEG (NEG); OPIATES NEG (NEG); PHENCYCLIDINE NEG (NEG)
[2019-12-02 04:48] LABS: BILIRUBIN,URINE NEG (NEG); CLARITY,URINE CLEAR; COLOR,URINE YELLOW; GLUCOSE,URINE NEG (NEG); NITRITE,URINE NEG (NEG); UROBILINOGEN,URINE 0.2 mg/dL (0.2 mg/dL)
[2019-12-02 04:49] LABS: BACTERIA,URINE 0 /HPF (0-FEW); SQUAMOUS EPITHELIAL CELL,UR FEW /LPF
[2019-12-02 04:50] LABS: AMPHETAMINE/METHAMPHETAMINE NEG (NEG)
== END 2019-12-02 05:15 | disposition short-term general hospital (02) ==
LOC: ER 01:35
DX: O21.0 Mild hyperemesis gravidarum (principal); O99.281 Endocrine, nutritional and metabolic diseases complicating pregnancy, first trimester; O99.111 Other diseases of the blood and blood-forming organs and certain disorders involving the immune mechanism complicating pregnancy, first trimester; E86.0 Dehydration; D72.829 Elevated white blood cell count, unspecified; O99.331 Smoking (tobacco) complicating pregnancy, first trimester; O99.321 Drug use complicating pregnancy, first trimester; F12.10 Cannabis abuse, uncomplicated; M79.7 Fibromyalgia; Z3A.08 8 weeks gestation of pregnancy; Z90.49 Acquired absence of other specified parts of digestive tract; Z98.890 Other specified postprocedural states; Z88.8 Allergy status to other drugs, medicaments and biological substances
CPT/HCPCS: 36415; 80048; 80076; 80307; 81001; 82550; 83690; 84484; 84702; 85007; 85025; 85610; 85730; 86900; 86901; 87040; 87804; 96361; 96374; 96375; 99285; G0480; J1200; J2405; J3490; J7120

== ENCOUNTER 2019-12-09 02:19 | Emergency (ER) | payer SELFPAY ==
[~2019-12-09] VITALS: Ht 152.4 cm; Wt 62.0 kg
--- NOTE | 2019-12-09 02:36 | PHYS DOC ---
Past History Past Medical History: Anxiety, Constipation, Fibromyalgia, IBS, Other Additional Past Medical Histor: hyperemesis gravidarum, cyclic vomiting syndrome Past Surgical History: Cholecystectomy, , Other Additional Past Surgical Histo: exploratory laparoscopy Smoking: Cigarettes, Less than 1pk/day Alcohol Use: Occasionally Drug Use: Marijuana Adult General Chief Complaint Chief Complaint: VOMITING IN HPI HPI 29-year-old female who has been seen multiple times recently for similar presents with report of intractable nausea and vomiting that started yesterday. Patient is 10 weeks . Patient has a history of cyclic vomiting syndrome and marijuana abuse. Patient also with concern for possible hyperemesis gravidarum. Patient denies known sick contacts. Denies fever or chills. Reports some abdominal discomfort secondary to nausea and vomiting. Denies vaginal discharge or bleeding. Reports tried taking Zofran prior to arrival without improvement. [facility] review performed with review of ED visits from 12/01/19 and 12/02/19. Patient with OB US with IUP with good heart tones. Positive UDS for THC and negative Rapid influenza testing. Review of Systems Review of Systems Constitutional: Denies fever or chills; reports malaise Eyes: Denies redness or eye pain HENT: Denies nasal congestion or sore throat Respiratory: Denies cough or shortness of breath Cardiovascular: Denies chest pain or palpitations GI: Reports abdominal pain, nausea, and vomiting /FLANGE TURNER: Denies dysuria or hematuria; reports ; denies vaginal bleeding or discharge Musculoskeletal: Denies back pain or joint pain Integument: Denies rash or skin lesions Neurologic: Denies headache, focal weakness or sensory changes Complete systems were reviewed and found to be within normal limits, except as documented in this note. Current Medications Current Medications Current Medications Medications (Trade) Dose Ordered Sig/Geni Start Time Stop Time Status Last Admin Dose Admin Dextrose/Lactated Ringer's 1,000 ml @ 500 mls/hr 1X ONCE 12/09/19 02:30 12/09/19 04:29 UNV Diphenhydramine HCl (Benadryl) 25 mg 1X ONCE 12/09/19 02:30 12/09/19 02:31 UNV Famotidine (Pepcid Vial) 20 mg 1X ONCE 12/09/19 02:30 12/09/19 02:31 UNV Metoclopramide HCl (Reglan Vial) 10 mg 1X ONCE 12/09/19 02:30 12/09/19 02:31 UNV Allergies Allergies Allergies Coded Allergies Type Severity Reaction Last Updated Verified haloperidol Allergy Unknown 01/22/19 Yes Physical Exam Physical Exam Constitutional: Well developed, well nourished, agitated and actively vomiting HENT: Normocephalic, atraumatic, oropharynx moist Eyes: PERRL, EOMI, conjunctiva normal, no discharge Neck: Normal range of motion, no tenderness, supple Cardiovascular: Heart rate tachycardic, regular rhythm Lungs & Thorax: Bilateral breath sounds clear to auscultation, no wheezing Abdomen: Appears nondistended, patient declined palpation Skin: Warm, dry, no erythema, no rash Back: No tenderness, no CVA tenderness Extremities: No tenderness, ROM intact, no edema Neurologic: Alert and oriented X 3, no focal deficits noted Psychologic: Affect agitated, judgment normal Current Patient Data Vital Signs Vital Signs Date Time Temp Pulse Resp B/P (MAP) Pulse Ox O2 Delivery O2 Flow Rate FiO2 12/09/19 02:22 98.1 106 20 154/108 (123) 98 Room Air EKG EKG [] Radiology/Procedures Radiology/Procedures [] Course & Med Decision Making Course & Med Decision Making Pertinent Labs and Imaging studies reviewed. (See chart for details) Patient well-known to the emergency department presents at approximately 10 weeks gestation with intractable nausea and vomiting. Patient does have history of cyclic vomiting syndrome and marijuana abuse. Patient also with history of possible hyperemesis gravidarum. Patient reports taking Zofran prior to arrival without improvement. Patient histrionic and actively vomiting. IV f luid hydration given. Symptomatic treatment provided with Reglan, Benadryl, Compazine, and Pepcid. Labs obtained and posted to chart. UA unobtainable as patient was not able to provide urine and stated "I'm not having it". OB ultrasound with IUD with good heart rate. Patient stable for discharge with outpatient follow-up with PCP/OB/GI. Discussed findings and plan with patient, who acknowledges understanding and agreement. Dragon Disclaimer Dragon Disclaimer This electronic medical record was generated, in whole or in part, using a voice recognition dictation system. Departure Departure: Impression: Primary Impression: Intractable nausea and vomiting Additional Impression: Disposition: HOME, SELF-CARE Condition: STABLE Referrals: BUD ROBERTSON MD (PCP) Patient Instructions: Diet - Hyperemesis Gravidarum, Hyperemesis Gravidarum Scripts Famotidine (PEPCID) 20 Mg Tablet 1 TAB PO BID for Gastritis for 5 Days, #10 TAB Prov: RUBÉN WALL DO 12/09/19 Promethazine Hcl (PROMETHAZINE HCL) 25 Mg Supp.rect 25 MG RC TID PRN PRN for NAUSEA, #14 SUPP.RECT Prov: RUBÉN WALL DO 12/09/19 Problem Qualifiers Additional Impression: Weeks of gestation: 10 weeks Qualified Codes: Z3A.10 - 10 weeks gestation of RUBÉN WALL DO Dec 09, 2019 02:36
[2019-12-09 03:00] LABS: BASO % 0 % (0-3); EOS % 0 % (0-3); HEMATOCRIT 40.9 % (36.0-47.0); HEMOGLOBIN 13.6 g/dL (12.0-15.5); LYMPH # 1.2 x10^3/uL (1.0-4.8); LYMPH % 11 % (24-48); MEAN CORPUSCULAR HEMOGLOBIN 34 pg (25-35); MEAN CORPUSCULAR HGB CONC 33 g/dL (31-37); MEAN CORPUSCULAR VOLUME 101 fL (79-100); MONO # 0.3 x10^3/uL (0.0-1.1); MONO % 3 % (0-9); NEUT # 8.6 x10^3uL (1.8-7.7); NEUT % 85 % (31-73); PLATELET COUNT 346 x10^3/uL (140-400); RED BLOOD COUNT 4.07 x10^6/uL (3.50-5.40); RED CELL DISTRIBUTION WIDTH 14.8 % (11.5-14.5); WHITE BLOOD COUNT 10.2 x10^3/uL (4.0-11.0)
[2019-12-09] MEDS ORDERED: FAMOTIDINE 20 MG/2 ML VIAL IVP ONE (03:00)
[2019-12-09] MEDS ORDERED: IV DEXTROSE 5%-LACT RINGERS 1,000 ML IV ONE (03:00)
[2019-12-09] MEDS ORDERED: METOCLOPRAMIDE HCL 10 MG/2 ML VIAL. IVP ONE (03:00)
[2019-12-09] MEDS ORDERED: diphenhydrAMINE 50 MG/ML VIAL IVP ONE (03:00)
[2019-12-09 03:14] LABS: CALCIUM 9.2 mg/dL (8.5-10.1); CREATININE 0.5 mg/dL (0.6-1.0); GFR 174.1; POTASSIUM 3.7 mmol/L (3.5-5.1)
[2019-12-09 03:18] LABS: ALBUMIN/GLOBULIN RATIO 1.3 (1.0-1.7); MAGNESIUM 1.8 mg/dL (1.8-2.4); TOTAL BILIRUBIN 0.4 mg/dL (0.2-1.0); TOTAL PROTEIN 7.1 g/dL (6.4-8.2)
[2019-12-09] MEDS ORDERED: PROCHLORPERAZINE 10 MG/2 ML VIAL. IV ONE (03:45)
[2019-12-09] MEDS ORDERED: FAMO-63 PO (03:53)
[2019-12-09] MEDS ORDERED: PROM25SU33 RC (03:53)
--- NOTE | 2019-12-09 03:55 | RAD ---
First trimester OB ultrasound dated 12/09/2019. No comparison available. CLINICAL INDICATION: Abdominal pain and . FINDINGS: Gestational sac and pole within the endometrial canal. Peetz-rump length measures 2.6 cm, correlating with a 9 week 2 days gestation and estimated sonographic date of delivery of 07/11/2020. No subchorionic collection. Amniotic fluid volume appears appropriate. heart rate 173 bpm. Yolk sac is seen. Placenta not well evaluated. There may be a small stalk connecting the placenta to the uterus. Right ovary measures 3.8 x 1.9 x 1.6 cm. Left ovary measures 2.5 x 1.7 x 1.7 cm. No adnexal mass or free fluid. IMPRESSION: 1. Single viable intrauterine gestation with estimated sonographic gestational age of 9 weeks 2 days. No acute findings. Electronically signed by: Bridger Hannah MD (12/09/2019 3:51 AM) [id number]
[2019-12-09 04:20] VITALS: BP 134/89
[2019-12-09] MEDS ORDERED: PROC25SU21 RC (13:47)
== END 2019-12-09 04:25 | disposition home or self-care (01) ==
LOC: ER 02:19
DX: O21.9 Vomiting of pregnancy, unspecified (principal); R10.9 Unspecified abdominal pain; M79.7 Fibromyalgia; O99.331 Smoking (tobacco) complicating pregnancy, first trimester; Z3A.10 10 weeks gestation of pregnancy; Z90.49 Acquired absence of other specified parts of digestive tract; Z98.890 Other specified postprocedural states; Z88.8 Allergy status to other drugs, medicaments and biological substances
CPT/HCPCS: 36415; 76801; 80053; 83690; 83735; 84702; 85025; 96361; 96374; 96375; 99284; J0780; J1200; J2765; J3490

== ENCOUNTER 2019-12-09 11:12 | Emergency (ER) | payer SELFPAY ==
[~2019-12-09] VITALS: Ht 152.4 cm; Wt 59.2 kg
[~2019-12-09 11:12] MED LIST changes: +PROM25SU33 RC
[2019-12-09] MEDS ORDERED: IV NORMAL SALINE 1,000ML 1,000 ML IV SCH (11:32)
[2019-12-09] MEDS ORDERED: diphenhydrAMINE 50 MG/ML VIAL ONE (11:36)
[2019-12-09] MEDS ORDERED: PROCHLORPERAZINE 10 MG/2 ML VIAL. ONE (11:37)
--- NOTE | 2019-12-09 11:40 | PHYS DOC ---
Past History Past Medical History: Anxiety, Constipation, Fibromyalgia, IBS, Other Additional Past Medical Histor: hyperemesis gravidarum, cyclic vomiting syndrome Past Surgical History: Cholecystectomy, , Other Additional Past Surgical Histo: exploratory laparoscopy Smoking: Cigarettes, Less than 1pk/day Alcohol Use: Occasionally Drug Use: Marijuana Adult General Chief Complaint Chief Complaint: VOMITING IN HPI HPI Patient is a 29-year-old -[place] female who presents to the emergency department for evaluation. She is approximately 9 weeks , based on an ultrasound from earlier this morning, and states that she has had numerous episodes of vomiting since leaving the emergency department. She does have a history of cyclic vomiting syndrome according to prior records, and admits to marijuana use although states she has not done any "recently". She is writhing a ll over the bed, and somewhat anxious, complaining of diffuse abdominal pain, which has been present for the past several weeks. She has not had any bloody emesis or stools or significant diarrhea. Labs and ultrasound report from earlier today as well as select notes from her prior visits have been reviewed. There are no alleviating or exacerbating factors to her symptoms. She was supposed to see her first cold type artist appointment today. Review of Systems Review of Systems Constitutional: Denies fever or chills [] Eyes: Denies change in visual acuity, redness, or eye pain [] HENT: Denies nasal congestion or sore throat [] Respiratory: Denies cough or shortness of breath [] Cardiovascular: The patient denies any shortness of breath, chest pain, palpitations, or orthopnea [] GI: No additional information not addressed in HPI [] : Denies dysuria or hematuria [] Musculoskeletal: Denies back pain or joint pain [] Integument: Denies rash or skin lesions [] Neurologic: Denies headache, focal weakness or sensory changes [] Endocrine: Denies polyuria or polydipsia [] All other systems were reviewed and found to be within normal limits, except as documented in this note. Current Medications Current Medications Current Medications Medications (Trade) Dose Ordered Sig/Geni Start Time Stop Time Status Last Admin Dose Admin Diphenhydramine HCl (Benadryl) 12.5 mg 1X ONCE 12/09/19 11:45 12/09/19 11:46 UNV Prochlorperazine Edisylate (Compazine) 10 mg 1X ONCE 12/09/19 11:45 12/09/19 11:46 UNV Sodium Chloride 1,000 ml @ 1,000 mls/hr Q1H 12/09/19 11:32 12/09/19 12:31 UNV Allergies Allergies Allergies Coded Allergies Type Severity Reaction Last Updated Verified haloperidol Allergy Unknown 01/22/19 Yes Physical Exam Physical Exam PHYSICAL EXAM: CONSTITUTIONAL: Well developed, well nourished HEAD: normocephalic, atraumatic EENT: PERRL, EOMI. Conjunctivae normal color, sclerae non-icteric; moist mucous membranes. NECK: Supple, non-tender; no meningismus. LUNGS: Lungs CTA, breathing even and unlabored. Normal air movement. HEART: Regular rate and rhythm, no murmur CHEST: No deformity; non-tender ABDOMEN: The abdomen is soft, there is mild diffuse tenderness to palpation to the entire abdomen without focal tenderness, rebound, or guarding, no masses or bruits. EXTREM: Normal ROM; no deformity, no calf tenderness. Normal pulses palpable in all extremities. There is no pedal edema. SKIN: No rash; no diaphoresis NEURO: Alert; normal speech and cognition; CN's grossly intact; strength grossly intact without focal deficit. BACK: No CVA TTP. PSYCHIATRIC: The patient exhibits a significantly anxious affect Current Patient Data Lab Results Laboratory Tests Test 12/09/19 11:50 White Blood Count 11.2 x10^3/uL Red Blood Count 3.84 x10^6/uL Hemoglobin 12.9 g/dL Hematocrit 38.7 % Mean Corpuscular Volume 101 fL Mean Corpuscular Hemoglobin 34 pg Mean Corpuscular Hemoglobin Concent 34 g/dL Red Cell Distribution Width 14.8 % Platelet Count 337 x10^3/uL Neutrophils (%) (Auto) 81 % Lymphocytes (%) (Auto) 12 % Monocytes (%) (Auto) 6 % Eosinophils (%) (Auto) 0 % Basophils (%) (Auto) 0 % Neutrophils # (Auto) 9.1 x10^3uL Lymphocytes # (Auto) 1.4 x10^3/uL Monocytes # (Auto) 0.7 x10^3/uL Eosinophils # (Auto) 0.0 x10^3/uL Basophils # (Auto) 0.0 x10^3/uL Sodium Level 135 mmol/L Potassium Level 3.4 mmol/L Chloride Level 98 mmol/L Carbon Dioxide Level 24 mmol/L Anion Gap 13 Blood Urea Nitrogen 4 mg/dL Creatinine 0.5 mg/dL Estimated GFR (Cockcroft-Gault) 174.1 BUN/Creatinine Ratio 8 Glucose Level 127 mg/dL Lactic Acid Level 1.2 mmol/L Calcium Level 9.0 mg/dL Total Bilirubin 0.4 mg/dL Aspartate Amino Transf (AST/SGOT) 16 U/L Alanine Aminotransferase (ALT/SGPT) 20 U/L Alkaline Phosphatase 58 U/L Total Protein 7.2 g/dL Albumin 3.8 g/dL Albumin/Globulin Ratio 1.1 Lipase 42 U/L Current Medications Medications (Trade) Dose Ordered Sig/Geni Route PRN Reason Start Time Stop Time Status Last Admin Dose Admin Sodium Chloride 1,000 ml @ 1,000 mls/hr Q1H IV 12/09/19 11:32 12/09/19 12:31 DC 12/09/19 11:58 Prochlorperazine Edisylate (Compazine) 10 mg 1X ONCE IV 12/09/19 11:45 12/09/19 11:46 DC 12/09/19 12:01 Diphenhydramine HCl (Benadryl) 12.5 mg 1X ONCE IVP 12/09/19 11:45 12/09/19 11:46 DC 12/09/19 12:00 Diphenhydramine HCl (Benadryl) 50 mg STK-MED ONCE .ROUTE 12/09/19 11:36 12/09/19 11:37 DC Prochlorperazine Edisylate (Compazine) 10 mg STK-MED ONCE .ROUTE 12/09/19 11:37 12/09/19 11:37 DC Sodium Chloride 1,000 ml @ 1,000 mls/hr 1X ONCE IV 12/09/19 11:45 12/09/19 12:44 DC 12/09/19 12:55 Potassium Chloride (Klor-Con) 20 meq 1X ONCE PO 12/09/19 13:00 12/09/19 13:01 DC 12/09/19 12:53 EKG EKG [] Radiology/Procedures Radiology/Procedures [] Course & Med Decision Making Course & Med Decision Making Pertinent Labs and Imaging studies reviewed. (See chart for details) []1:45 PM: The patient's condition remains stable. She has had no further vomiting in the emergency department. I discussed importance of close follow-up with her cold type artist, Dr. Felix, and return precautions in detail. Shayne Disclaimer Vanon Disclaimer This electronic medical record was generated, in whole or in part, using a voice recognition dictation system. Departure Departure: Impression: Primary Impression: Nausea & vomiting Additional Impression: Disposition: HOME, SELF-CARE Condition: STABLE Referrals: BUD ROBERTSON MD (PCP) Patient Instructions: Diet - Hyperemesis Gravidarum, Hyperemesis Gravidarum, Nausea and Vomiting Scripts Prochlorperazine Maleate (COMPAZINE) 25 Mg Supp.rect 25 MG RC Q6HRS PRN for NAUSEA, #20 SUPP.RECT Prov: MARGARITO JOHNSON MD 12/09/19 Problem Qualifiers MARGARITO JOHNSON MD Dec 09, 2019 11:40
[2019-12-09] MEDS ORDERED: IV NORMAL SALINE 1,000ML 1,000 ML IV ONE (11:45)
[2019-12-09] MEDS ORDERED: diphenhydrAMINE 50 MG/ML VIAL IVP ONE (11:45)
[2019-12-09] MEDS ORDERED: PROCHLORPERAZINE 10 MG/2 ML VIAL. IV ONE (11:45)
[2019-12-09 12:11] LABS: BASO % 0 % (0-3); EOS % 0 % (0-3); HEMATOCRIT 38.7 % (36.0-47.0); HEMOGLOBIN 12.9 g/dL (12.0-15.5); LYMPH # 1.4 x10^3/uL (1.0-4.8); LYMPH % 12 % (24-48); MEAN CORPUSCULAR HEMOGLOBIN 34 pg (25-35); MEAN CORPUSCULAR HGB CONC 34 g/dL (31-37); MEAN CORPUSCULAR VOLUME 101 fL (79-100); MONO # 0.7 x10^3/uL (0.0-1.1); MONO % 6 % (0-9); NEUT # 9.1 x10^3uL (1.8-7.7); NEUT % 81 % (31-73); PLATELET COUNT 337 x10^3/uL (140-400); RED BLOOD COUNT 3.84 x10^6/uL (3.50-5.40); RED CELL DISTRIBUTION WIDTH 14.8 % (11.5-14.5); WHITE BLOOD COUNT 11.2 x10^3/uL (4.0-11.0)
[2019-12-09 12:18] LABS: CREATININE 0.5 mg/dL (0.6-1.0); GFR 174.1
[2019-12-09 12:19] LABS: POTASSIUM 3.4 mmol/L (3.5-5.1)
[2019-12-09 12:24] LABS: ALBUMIN 3.8 g/dL (3.4-5.0); ALBUMIN/GLOBULIN RATIO 1.1 (1.0-1.7); TOTAL BILIRUBIN 0.4 mg/dL (0.2-1.0); TOTAL PROTEIN 7.2 g/dL (6.4-8.2)
[2019-12-09] MEDS ORDERED: POTASSIUM CHLORIDE 20 MEQ TABLET.ER. PO ONE (13:00)
[2019-12-09] MEDS ORDERED: PROC25SU21 RC (13:47)
[2019-12-09 14:25] VITALS: BP 127/88
== END 2019-12-09 14:25 | disposition home or self-care (01) ==
LOC: ER 11:12
DX: O21.9 Vomiting of pregnancy, unspecified (principal); R10.84 Generalized abdominal pain; M79.7 Fibromyalgia; O99.331 Smoking (tobacco) complicating pregnancy, first trimester; Z3A.09 9 weeks gestation of pregnancy; Z98.890 Other specified postprocedural states; Z90.49 Acquired absence of other specified parts of digestive tract; Z88.8 Allergy status to other drugs, medicaments and biological substances
CPT/HCPCS: 36415; 80053; 83605; 83690; 85025; 96361; 96374; 96375; 99284; J0780; J1200; J7030

== ENCOUNTER 2019-12-12 14:40 | Emergency (ER) | payer SELFPAY ==
[~2019-12-12] VITALS: Ht 152.4 cm; Wt 59.2 kg
[~2019-12-12 14:40] MED LIST changes: +PROC25SU21 RC
[2019-12-12] MEDS ORDERED: IV NORMAL SALINE 1,000ML 1,000 ML IV ONE ×2 (15:00)
--- NOTE | 2019-12-12 15:00 | PHYS DOC ---
Past History Past Medical History: Anxiety, Constipation, Fibromyalgia, IBS, Other Additional Past Medical Histor: hyperemesis gravidarum, cyclic vomiting syndrome Past Surgical History: Cholecystectomy, , Other Additional Past Surgical Histo: exploratory laparoscopy Smoking: Cigarettes, Less than 1pk/day Alcohol Use: Occasionally Drug Use: Marijuana Adult General Chief Complaint Chief Complaint: VOMITING IN HPI HPI Patient is a 29-year-old female who presents to the emergency department for evaluation. She is familiar today from a prior ER visit late last week. She is in her first trimester of , based on an ultrasound performed recently, and has had recurrent episodes of vomiting. She does have a past history of marijuana use but has told me that she she has not had any bloody emesis or diarrhea. There are no alleviating or exacerbating factors to her symptoms. Review of Systems Review of Systems Constitutional: Denies fever or chills [] Eyes: Denies change in visual acuity, redness, or eye pain [] HENT: Denies nasal congestion or sore throat [] Respiratory: Denies cough or shortness of breath [] Cardiovascular: The patient denies any shortness of breath, chest pain, palpitations, or orthopnea[] GI: Denies bloody emesis, bloody stools or diarrhea [] : Denies dysuria or hematuria [] Musculoskeletal: Denies back pain or joint pain [] Integument: Denies rash or skin lesions [] Neurologic: Denies headache, focal weakness or sensory changes [] Endocrine: Denies polyuria or polydipsia [] All other systems were reviewed and found to be within normal limits, except as documented in this note. Current Medications Current Medications Current Medications Medications (Trade) Dose Ordered Sig/Geni Start Time Stop Time Status Last Admin Dose Admin Sodium Chloride 1,000 ml @ 1,000 mls/hr 1X ONCE 12/12/19 15:00 12/12/19 15:59 Allergies Allergies Allergies Coded Allergies Type Severity Reaction Last Updated Verified haloperidol Allergy Unknown 12/09/19 Yes Physical Exam Physical Exam PHYSICAL EXAM: CONSTITUTIONAL: Well developed, well nourished HEAD: normocephalic, atraumatic EENT: PERRL, EOMI. Conjunctivae normal color, sclerae non-icteric; moist mucous membranes. NECK: Supple, non-tender; no meningismus. LUNGS: Lungs CTA, breathing even and unlabored. Normal air movement. HEART: Regular rate and rhythm, no murmur CHEST: No deformity; non-tender ABDOMEN: The abdomen is soft, there is mild diffuse tenderness to the abdomen without focal tenderness, rebound, no masses or bruits. EXTREM: Normal ROM; no deformity, no calf tenderness. Normal pulses palpable in all extremities. There is no pedal edema. SKIN: No rash; no diaphoresis NEURO: Alert; normal speech and cognition; CN's grossly intact; strength grossly intact without focal deficit. BACK: No CVA TTP. PSYCHIATRIC: patient exhibits an anxious affect. Current Patient Data Lab Results Laboratory Tests Test 12/12/19 15:30 12/12/19 15:45 White Blood Count 10.8 x10^3/uL Red Blood Count 3.89 x10^6/uL Hemoglobin 13.0 g/dL Hematocrit 40.1 % Mean Corpuscular Volume 103 fL Mean Corpuscular Hemoglobin 34 pg Mean Corpuscular Hemoglobin Concent 33 g/dL Red Cell Distribution Width 15.2 % Platelet Count 261 x10^3/uL Neutrophils (%) (Auto) 88 % Lymphocytes (%) (Auto) 9 % Monocytes (%) (Auto) 3 % Eosinophils (%) (Auto) 0 % Basophils (%) (Auto) 0 % Neutrophils # (Auto) 9.5 x10^3uL Lymphocytes # (Auto) 1.0 x10^3/uL Monocytes # (Auto) 0.3 x10^3/uL Eosinophils # (Auto) 0.0 x10^3/uL Basophils # (Auto) 0.0 x10^3/uL Sodium Level 134 mmol/L Potassium Level 3.2 mmol/L Chloride Level 100 mmol/L Carbon Dioxide Level 23 mmol/L Anion Gap 11 Blood Urea Nitrogen 3 mg/dL Creatinine 0.5 mg/dL Estimated GFR (Cockcroft-Gault) 174.1 BUN/Creatinine Ratio 6 Glucose Level 119 mg/dL Calcium Level 8.5 mg/dL Total Bilirubin 0.2 mg/dL Aspartate Amino Transf (AST/SGOT) 12 U/L Alanine Aminotransferase (ALT/SGPT) 16 U/L Alkaline Phosphatase 57 U/L Total Protein 6.6 g/dL Albumin 3.5 g/dL Albumin/Globulin Ratio 1.1 Lactic Acid Level 1.1 mmol/L Current Medications Medications (Trade) Dose Ordered Sig/Geni Route PRN Reason Start Time Stop Time Status Last Admin Dose Admin Sodium Chloride 1,000 ml @ 1,000 mls/hr 1X ONCE IV 12/12/19 15:00 12/12/19 15:59 DC 12/12/19 15:45 Sodium Chloride 1,000 ml @ 1,000 mls/hr 1X ONCE IV 12/12/19 15:00 12/12/19 15:59 DC Prochlorperazine Edisylate (Compazine) 10 mg 1X ONCE IV 12/12/19 15:15 12/12/19 15:16 DC 12/12/19 15:45 Diphenhydramine HCl (Benadryl) 25 mg 1X ONCE IVP 12/12/19 15:15 12/12/19 15:16 DC 12/12/19 15:46 EKG EKG [] Radiology/Procedures Radiology/Procedures [] Course & Med Decision Making Course & Med Decision Making Pertinent Labs and prior Imaging studies reviewed. (See chart for details) []The patient's condition remains a stable. She is agreeable to hospitalization and I spoke with Dr. Ng, DIRECTOR OF PHOTOGRAPHY at [place] who accepted the patient in transfer. Dragon Disclaimer Dragon Disclaimer This electronic medical record was generated, in whole or in part, using a voice recognition dictation system. Departure Departure: Impression: Primary Impression: Hyperemesis gravidarum Disposition: XFER SHT-TRM HOSP Condition: STABLE Referrals: BUD ROBERTSON MD (PCP) MARGARITO JOHNSON MD Dec 12, 2019 15:00
[2019-12-12] MEDS ORDERED: diphenhydrAMINE 50 MG/ML VIAL IVP ONE (15:15)
[2019-12-12] MEDS ORDERED: PROCHLORPERAZINE 10 MG/2 ML VIAL. IV ONE (15:15)
[2019-12-12 16:01] LABS: BASO % 0 % (0-3); EOS % 0 % (0-3); HEMATOCRIT 40.1 % (36.0-47.0); LYMPH % 9 % (24-48); MEAN CORPUSCULAR HEMOGLOBIN 34 pg (25-35); MEAN CORPUSCULAR HGB CONC 33 g/dL (31-37); MEAN CORPUSCULAR VOLUME 103 fL (79-100); MONO # 0.3 x10^3/uL (0.0-1.1); MONO % 3 % (0-9); NEUT # 9.5 x10^3uL (1.8-7.7); NEUT % 88 % (31-73); PLATELET COUNT 261 x10^3/uL (140-400); RED BLOOD COUNT 3.89 x10^6/uL (3.50-5.40); RED CELL DISTRIBUTION WIDTH 15.2 % (11.5-14.5); WHITE BLOOD COUNT 10.8 x10^3/uL (4.0-11.0)
[2019-12-12 16:05] LABS: CALCIUM 8.5 mg/dL (8.5-10.1); CREATININE 0.5 mg/dL (0.6-1.0); GFR 174.1; POTASSIUM 3.2 mmol/L (3.5-5.1)
[2019-12-12 16:10] LABS: ALBUMIN 3.5 g/dL (3.4-5.0); ALBUMIN/GLOBULIN RATIO 1.1 (1.0-1.7); TOTAL BILIRUBIN 0.2 mg/dL (0.2-1.0); TOTAL PROTEIN 6.6 g/dL (6.4-8.2)
[2019-12-12] MEDS ORDERED: POTASSIUM CHLORIDE 20 MEQ TABLET.ER. PO ONE (17:15)
[2019-12-12 17:20] VITALS: BP 124/65
[2019-12-12 18:05] LABS: BARBITURATES NEG (NEG); BENZODIAZEPINES NEG (NEG); CANNABINOIDS POS (NEG); COCAINE NEG (NEG); METHADONE NEG (NEG); OPIATES NEG (NEG); PHENCYCLIDINE NEG (NEG)
[2019-12-12 18:07] LABS: BACTERIA,URINE FEW /HPF (0-FEW); BILIRUBIN,URINE NEG (NEG); CLARITY,URINE CLEAR; COLOR,URINE YELLOW; GLUCOSE,URINE NEG (NEG); NITRITE,URINE NEG (NEG); RBC,URINE 0 /HPF (0-2); SQUAMOUS EPITHELIAL CELL,UR OCC /LPF; UROBILINOGEN,URINE 0.2 mg/dL (0.2 mg/dL)
[2019-12-12 18:10] LABS: AMPHETAMINE/METHAMPHETAMINE NEG (NEG)
== END 2019-12-12 17:40 | disposition short-term general hospital (02) ==
LOC: ER 14:40
DX: O21.0 Mild hyperemesis gravidarum (principal); M79.7 Fibromyalgia; K58.9 Irritable bowel syndrome, unspecified; Z90.49 Acquired absence of other specified parts of digestive tract; O99.331 Smoking (tobacco) complicating pregnancy, first trimester; Z98.890 Other specified postprocedural states; Z3A.10 10 weeks gestation of pregnancy; Z88.8 Allergy status to other drugs, medicaments and biological substances
CPT/HCPCS: 36415; 80053; 80307; 81001; 83605; 85025; 96361; 96374; 96375; 99285; J0780; J1200; J7030

== ENCOUNTER 2019-12-18 04:07 | Emergency (ER) | payer SELFPAY ==
[~2019-12-18] VITALS: Ht 152.4 cm; Wt 59.2 kg
[2019-12-18] MEDS ORDERED: IV NORMAL SALINE 1,000ML 1,000 ML IV ONE ×2 (04:15→05:00)
[2019-12-18] MEDS ORDERED: diphenhydrAMINE 50 MG/ML VIAL IVP ONE (04:15)
[2019-12-18] MEDS ORDERED: METOCLOPRAMIDE HCL 10 MG/2 ML VIAL. IVP ONE (04:15)
--- NOTE | 2019-12-18 04:29 | PHYS DOC ---
Past History Past Medical History: Anxiety, Constipation, Fibromyalgia, IBS, Other Additional Past Medical Histor: hyperemesis gravidarum, cyclic vomiting syndrome (BEBA NGUYEN DO) Past Surgical History: Cholecystectomy, , Other Additional Past Surgical Histo: exploratory laparoscopy (BEBA NGUYEN DO) Smoking: Cigarettes, Less than 1pk/day Alcohol Use: Occasionally Drug Use: Marijuana (BEBA NGUYEN DO) Adult General Chief Complaint Chief Complaint: VOMITING IN [facility] Patient is a 29-year-old -[place] female who is 10+ weeks presents with complaint of nausea and vomiting. Patient's diagnosis of hyperemesis gravidarum and has been hospitalized twice in the past 2 weeks. She admits to smoking marijuana. Denies hematemesis. No abdominal pain. Patient has been seen in the emergency department every couple of days during her for similar symptoms. (BEBA NGUYEN DO) Review of Systems Review of Systems All other ROS is negative unless otherwise stated in HPI (BEBA NGUYEN DO) Current Medications Current Medications Current Medications Medications (Trade) Dose Ordered Sig/Geni Start Time Stop Time Status Last Admin Dose Admin Diphenhydramine HCl (Benadryl) 25 mg 1X ONCE 12/18/19 04:15 12/18/19 04:16 UNV Metoclopramide HCl (Reglan Vial) 10 mg 1X ONCE 12/18/19 04:15 12/18/19 04:16 UNV Sodium Chloride 1,000 ml @ 1,000 mls/hr 1X ONCE 12/18/19 04:15 12/18/19 05:14 UNV (BEBA NGUYEN DO) Allergies Allergies Allergies Coded Allergies Type Severity Reaction Last Updated Verified haloperidol Allergy Unknown 12/09/19 Yes (BEBA NGUYEN DO) Physical Exam Physical Exam See above Constitutional: Well developed, well nourished, no acute distress, non-toxic appearance. [] HENT: Normocephalic, atraumatic, bilateral external ears normal, oropharynx moist, no oral exudates, nose normal. [] Eyes: PERRLA, EOMI, conjunctiva normal, no discharge. [] Neck: Normal range of motion, no tenderness, supple, no stridor. [] Cardiovascular:Heart rate regular rhythm, no murmur [] Lungs & Thorax: Bilateral breath sounds clear to auscultation [] Abdomen: Bowel sounds normal, soft, no tenderness, no masses, no pulsatile masses. [] Skin: Warm, dry, no erythema, no rash. [] Back: No tenderness, no CVA tenderness. [] Extremities: No tenderness, no cyanosis, no clubbing, ROM intact, no edema. [] Neurologic: Alert and oriented X 3, normal motor function, normal sensory function, no focal deficits noted. [] (BEBA NGUYEN DO) Physical Exam Constitutional: Well developed, well nourished HENT: Normocephalic, atraumatic, oropharynx moist Eyes: Conjunctiva normal, no discharge Lungs & Thorax: No respiratory distress Abdomen: Patient declined repeat examination Skin: Warm, dry Extremities: No tenderness, ROM intact, no edema Neurologic: Alert, no focal deficits noted Psychologic: Affect flat, judgment normal (RUBÉN WALL DO) EKG EKG [] (BEBA NGUYEN DO) Radiology/Procedures Radiology/Procedures [] (BEBA NGUYEN DO) Course & Med Decision Making Course & Med Decision Making Pertinent Labs and Imaging studies reviewed. (See chart for details) Patient seen for nausea and vomiting in with history of hyperemesis Interim. We'll give 2 L IV fluid, Benadryl, Reglan, Zofran. Check labs. Patient appears stable at this time and is not actively vomiting. 0540: Patient's labs are unremarkable. She states that she is feeling somewhat better. She has 1 more liter of normal saline. We'll transition care to Dr. Wall. (BEBA NGUYEN DO) Course & Med Decision Making Patient well-known to emergency department with history of hyperemesis gravidarum and prior history of cyclic vomiting with history of marijuana use. Labs reviewed and posted to chart. Patient seen and evaluated her myself. Patient received 2 L of IV fluid. Patient without active vomiting. Patient stable for discharge with outpatient follow-up with PCP/INSULATING MACHINE OPERATOR. Discussed findings and plan with patient, who acknowledges understanding and agreement. (RUBÉN WALL DO) Dragon Disclaimer Dragon Disclaimer This electronic medical record was generated, in whole or in part, using a voice recognition dictation system. (BEBA NGUYEN DO) Departure Departure: Impression: Primary Impression: Hyperemesis gravidarum Disposition: 01 HOME, SELF-CARE Condition: STABLE Referrals: BUD ROBERTSON MD (PCP) Patient Instructions: Cyclic Vomiting Syndrome, Diet - Hyperemesis Gravidarum, Hyperemesis Gravidarum Additional Instructions: Continue previously prescribed medications for nausea. BEBA NGUYEN DO Dec 18, 2019 04:29 RUBÉN WALL DO Dec 18, 2019 06:44
[2019-12-18] MEDS ORDERED: ONDANSETRON PF 4 MG/2 ML VIAL. IVP ONE (04:30)
[2019-12-18 05:28] LABS: CREATININE 0.4 mg/dL (0.6-1.0); GFR 225.3; POTASSIUM 4.4 mmol/L (3.5-5.1)
[2019-12-18 05:33] LABS: ALBUMIN 3.4 g/dL (3.4-5.0); TOTAL BILIRUBIN 0.5 mg/dL (0.2-1.0); TOTAL PROTEIN 6.9 g/dL (6.4-8.2)
[2019-12-18 06:14] VITALS: BP 109/65
== END 2019-12-18 07:00 | disposition home or self-care (01) ==
LOC: ER 04:07
DX: O21.0 Mild hyperemesis gravidarum (principal); M79.7 Fibromyalgia; K58.9 Irritable bowel syndrome, unspecified; O99.331 Smoking (tobacco) complicating pregnancy, first trimester; Z3A.10 10 weeks gestation of pregnancy; Z90.49 Acquired absence of other specified parts of digestive tract; Z98.890 Other specified postprocedural states; Z88.8 Allergy status to other drugs, medicaments and biological substances
CPT/HCPCS: 36415; 80053; 83690; 96361; 96374; 96375; 99284; J1200; J2405; J2765; J7030

== ENCOUNTER 2019-12-20 21:31 | Emergency (ER) | payer SELFPAY ==
[~2019-12-20] VITALS: Ht 152.4 cm; Wt 59.2 kg
[2019-12-20] MEDS ORDERED: diphenhydrAMINE 50 MG/ML VIAL IVP ONE (23:30)
[2019-12-20] MEDS ORDERED: METOCLOPRAMIDE HCL 10 MG/2 ML VIAL. IVP ONE (23:30)
[2019-12-20] MEDS ORDERED: ONDANSETRON PF 4 MG/2 ML VIAL. IV ONE (23:30)
[2019-12-20] MEDS ORDERED: diphenhydrAMINE 50 MG/ML VIAL IM ONE (23:45)
[2019-12-20] MEDS ORDERED: IV NORMAL SALINE 1,000ML 1,000 ML IV ONE (23:45)
[2019-12-20] MEDS ORDERED: ONDANSETRON PF 4 MG/2 ML VIAL. IM ONE (23:45)
[2019-12-21 01:34] LABS: CALCIUM 8.3 mg/dL (8.5-10.1); CREATININE 0.4 mg/dL (0.6-1.0); GFR 225.3; POTASSIUM 3.6 mmol/L (3.5-5.1)
[2019-12-21 02:01] VITALS: BP 129/83
--- NOTE | 2019-12-21 04:57 | PHYS DOC ---
Past History Past Medical History: Anxiety, Constipation, Fibromyalgia, IBS, Other Additional Past Medical Histor: hyperemesis gravidarum, cyclic vomiting syndrome Past Surgical History: Cholecystectomy, , Other Additional Past Surgical Histo: exploratory laparoscopy Smoking: Cigarettes, Less than 1pk/day Alcohol Use: Occasionally Drug Use: Marijuana Adult General Chief Complaint Chief Complaint: VOMITING IN HPI HPI Patient is a 29-year-old female presenting with vomiting onset a couple of weeks ago if not longer she has been vomiting throughout most of her she has been in the emergency room several times she says she does not yet have her insurance so tired to get her prescriptions that are prescribed but she is trying to take Zofran as needed. Just vomiting burning pain similar to multiple previous visits. She is already been worked up extensively with labs urine and ultrasound. She says this is similar to those times Review of Systems Review of Systems Constitutional: Denies fever or chills [] Eyes: Denies change in visual acuity, redness, or eye pain [] HENT: Denies nasal congestion or sore throat [] Respiratory: Denies cough or shortness of breath [] Neurologic: Denies headache, focal weakness or sensory changes [] Endocrine: Denies polyuria or polydipsia [] All other systems were reviewed and found to be within normal limits, except as documented in this note. Current Medications Current Medications Current Medications Medications (Trade) Dose Ordered Sig/Geni Start Time Stop Time Status Last Admin Dose Admin Diphenhydramine HCl (Benadryl) 50 mg 1X ONCE 12/20/19 23:45 12/20/19 23:49 DC Metoclopramide HCl (Reglan Vial) 10 mg 1X ONCE 12/20/19 23:30 12/20/19 23:49 DC 12/21/19 00:12 10 MG Ondansetron HCl (Zofran) 4 mg 1X ONCE 12/20/19 23:45 12/20/19 23:49 DC Sodium Chloride 1,000 ml @ 1,000 mls/hr 1X ONCE 12/20/19 23:45 12/21/19 00:44 DC 12/21/19 00:09 1,000 MLS/HR Allergies Allergies Allergies Coded Allergies Type Severity Reaction Last Updated Verified haloperidol Allergy Unknown 12/09/19 Yes Physical Exam Physical Exam Constitutional: Well developed, well nourished, no acute distress, non-toxic appearance. [] HENT: Normocephalic, atraumatic, bilateral external ears normal, oropharynx moist, no oral exudates, nose normal. [] Eyes: PERRLA, EOMI, conjunctiva normal, no discharge. [] Neck: Normal range of motion, no tenderness, supple, no stridor. [] Cardiovascular:Heart rate regular rhythm, no murmur [] Lungs & Thorax: Bilateral breath sounds clear to auscultation [] Abdomen: Bowel sounds normal, soft, pushes my hand away before even touching the skin no obvious peritoneal signs but exam is somewhat limited., no masses, no pulsatile masses. [] Skin: Warm, dry, no erythema, no rash. [] Back: No tenderness, no CVA tenderness. [] Extremities: No tenderness, no cyanosis, no clubbing, ROM intact, no edema. [] Neurologic: Alert and oriented X 3, normal motor function, normal sensory function, no focal deficits noted. [] Psychologic: Affect normal, judgement normal, mood normal. [] Current Patient Data Vital Signs Vital Signs Date Time Temp Pulse Resp B/P (MAP) Pulse Ox O2 Delivery O2 Flow Rate FiO2 12/21/19 02:01 84 14 129/83 (98) 100 Room Air 12/20/19 22:34 98.7 Lab Results Laboratory Tests Test 12/21/19 01:10 Sodium Level 133 mmol/L (136-145) L Potassium Level 3.6 mmol/L (3.5-5.1) Chloride Level 102 mmol/L (98-107) Carbon Dioxide Level 22 mmol/L (21-32) Anion Gap 9 (6-14) Blood Urea Nitrogen 2 mg/dL (7-20) L Creatinine 0.4 mg/dL (0.6-1.0) L Estimated GFR (Cockcroft-Gault) 225.3 Glucose Level 97 mg/dL (70-99) Calcium Level 8.3 mg/dL (8.5-10.1) L EKG EKG [] Radiology/Procedures Radiology/Procedures [] Course & Med Decision Making Course & Med Decision Making Pertinent Labs and Imaging studies reviewed. (See chart for details) [] Hyperemesis gravidarum reviewed prior visit reviewed ultrasound and recent urine test which were looking good. Patient was treated symptomatically emergency room with improvement and was discharged in stable condition advised obtain insurance as soon as possible get medications filled and follow-up with gynecology. Dragon Disclaimer Dragon Disclaimer This electronic medical record was generated, in whole or in part, using a voice recognition dictation system. Departure Departure: Impression: Primary Impression: Vomiting Disposition: 01 HOME, SELF-CARE Condition: STABLE Patient Instructions: Hyperemesis Gravidarum PAIGE VERGARA MD Dec 21, 2019 04:57
== END 2019-12-21 02:03 | disposition home or self-care (01) ==
LOC: ER 21:31
DX: O21.9 Vomiting of pregnancy, unspecified (principal); O99.331 Smoking (tobacco) complicating pregnancy, first trimester; M79.7 Fibromyalgia; K58.9 Irritable bowel syndrome, unspecified; Z3A.10 10 weeks gestation of pregnancy; Z90.49 Acquired absence of other specified parts of digestive tract; Z98.890 Other specified postprocedural states; Z88.8 Allergy status to other drugs, medicaments and biological substances
CPT/HCPCS: 36415; 80048; 96361; 96374; 96375; 99284; J1200; J2405; J2765; J7030

== ENCOUNTER 2019-12-24 09:58 | Emergency (ER) | payer SELFPAY ==
[~2019-12-24] VITALS: Ht 152.4 cm; Wt 60.9 kg
[2019-12-24] MEDS ORDERED: MECL-75 PO (10:28)
--- NOTE | 2019-12-24 10:28 | PHYS DOC ---
Past History Past Medical History: Anxiety, Constipation, Fibromyalgia, IBS, Other Additional Past Medical Histor: hyperemesis gravidarum, cyclic vomiting syndrome Past Surgical History: Cholecystectomy, , Other Additional Past Surgical Histo: exploratory laparoscopy Smoking: Cigarettes, Less than 1pk/day Alcohol Use: Occasionally Drug Use: Marijuana Adult General Chief Complaint Chief Complaint: VOMITING IN HPI HPI Patient is a 29-year-old -[place]er female who is approximate 11 weeks and 3 days with a history of hyperemesis gravidarum presents secondary to continued nausea and vomiting despite multiple trips to the emergency department at home treatment with pyridoxine and doxylamine and Zofran and rectal Phenergan. The patient states she has not established care with an air brake worker because of lack of insurance. She has been to the ED approximately 4-5 times in the last 2 weeks. She has had transvaginal ultrasound on December 09. She denies vaginal bleeding or loss of fluid. Review of Systems Review of Systems All other systems were reviewed and found to be within normal limits, except as documented in this note. Current Medications Current Medications Current Medications Medications (Trade) Dose Ordered Sig/Geni Start Time Stop Time Status Last Admin Dose Admin Diphenhydramine HCl (Benadryl) 25 mg 1X ONCE 12/24/19 10:30 12/24/19 10:31 UNV Methylprednisolone Sodium Succinate (SOLU-Medrol 40MG VIAL) 20 mg 1X ONCE 12/24/19 10:30 12/24/19 10:31 UNV Ondansetron HCl (Zofran) 4 mg 1X ONCE 12/24/19 10:30 12/24/19 10:31 UNV Prochlorperazine Edisylate (Compazine) 10 mg 1X ONCE 12/24/19 10:30 12/24/19 10:31 UNV Sodium Chloride 1,000 ml @ 1,000 mls/hr 1X ONCE 12/24/19 10:30 12/24/19 11:29 UNV Allergies Allergies Allergies Coded Allergies Type Severity Reaction Last Updated Verified haloperidol Allergy Unknown 12/09/19 Yes Physical Exam Physical Exam Constitutional: Well developed, well nourished, writhing in bed very dramatically HENT: Normocephalic, atraumatic, bilateral external ears normal, oropharynx moist, no oral exudates, nose normal. [] Eyes: PERRLA, EOMI, conjunctiva normal, no discharge. [] Neck: Normal range of motion, no tenderness, supple, no stridor. [] Cardiovascular:Heart rate regular rhythm, no murmur [] Lungs & Thorax: Bilateral breath sounds clear to auscultation [] Abdomen: Bowel sounds normal, soft, no tenderness, no masses, no pulsatile masses. [] Skin: Warm, dry, no erythema, no rash. [] Back: No tenderness, no CVA tenderness. [] Extremities: No tenderness, no cyanosis, no clubbing, ROM intact, no edema. [] Neurologic: Alert and oriented X 3, normal motor function, normal sensory function, no focal deficits noted. [] EKG EKG [] Radiology/Procedures Radiology/Procedures [] Course & Med Decision Making Course & Med Decision Making Pertinent Labs and Imaging studies reviewed. (See chart for details) 1204: Patient refused lab draw. Her IV infiltrated but patient is feeling better and wishes to go home. Will discharge Dragon Disclaimer Dragon Disclaimer This electronic medical record was generated, in whole or in part, using a voice recognition dictation system. Departure Departure: Impression: Primary Impression: Hyperemesis gravidarum Disposition: HOME, SELF-CARE Condition: STABLE Referrals: BUD ROBERTSON MD (PCP) Patient Instructions: Hyperemesis Gravidarum Additional Instructions: Please establish care with an OB physician. Scripts Prednisone (PREDNISONE) 10 Mg Tablet 10 MG PO UD for Hyperemesis for 7 Days, #10 TAB Take 2 tablets daily x3 days, then 1 tablet daily x3 days, then 1/2 tablet daily x2 days. Prov: BEBA NGUYEN DO 12/24/19 Meclizine Hcl (MECLIZINE HCL) 25 Mg Tablet 1 TAB PO PRN TID for Vomiting, #30 TAB Prov: BEBA NGUYEN DO 12/24/19 BEBA NGUYEN DO Dec 24, 2019 10:28
[2019-12-24] MEDS ORDERED: ONDANSETRON PF 4 MG/2 ML VIAL. IVP ONE (10:30)
[2019-12-24] MEDS ORDERED: diphenhydrAMINE 50 MG/ML VIAL IVP ONE (10:30)
[2019-12-24] MEDS ORDERED: PROCHLORPERAZINE 10 MG/2 ML VIAL. IV ONE (10:30)
[2019-12-24] MEDS ORDERED: methylPREDNISolone SOD SUCC PF 40 MG/ML VIAL. IV ONE (10:30)
[2019-12-24] MEDS ORDERED: IV NORMAL SALINE 1,000ML 1,000 ML IV ONE ×2 (10:30)
[2019-12-24] MEDS ORDERED: PRED-220 PO (10:52)
[2019-12-24 12:10] VITALS: BP 118/58
== END 2019-12-24 12:11 | disposition home or self-care (01) ==
LOC: ER 09:58
DX: O21.0 Mild hyperemesis gravidarum (principal); M79.7 Fibromyalgia; K58.9 Irritable bowel syndrome, unspecified; O99.331 Smoking (tobacco) complicating pregnancy, first trimester; Z3A.11 11 weeks gestation of pregnancy; Z90.49 Acquired absence of other specified parts of digestive tract; Z98.890 Other specified postprocedural states; Z88.8 Allergy status to other drugs, medicaments and biological substances
CPT/HCPCS: 96361; 96374; 96375; J0780; J1200; J2405; J2920; 99284-25; J7030

== ENCOUNTER 2019-12-27 09:30 | Emergency (ER) | payer MEDICAID, OTHER ==
[~2019-12-27] VITALS: Ht 152.4 cm; Wt 61.5 kg
[~2019-12-27 09:30] MED LIST changes: +MECL-75 PO; +PRED-220 PO
[2019-12-27] MEDS ORDERED: diphenhydrAMINE 50 MG/ML VIAL IM ONE (09:45)
[2019-12-27] MEDS ORDERED: PROCHLORPERAZINE 10 MG/2 ML VIAL. IM ONE (09:45)
--- NOTE | 2019-12-27 10:10 | PHYS DOC ---
Past History Past Medical History: Anxiety, Constipation, Fibromyalgia, IBS, Other Additional Past Medical Histor: hyperemesis gravidarum, cyclic vomiting syndrome Past Surgical History: Cholecystectomy, , Other Additional Past Surgical Histo: exploratory laparoscopy Smoking: Cigarettes, Less than 1pk/day Alcohol Use: Occasionally Drug Use: Marijuana Adult General Chief Complaint Chief Complaint: VOMITING IN HPI HPI Patient is a 29-year-old -Welsh female with hyperemesis gravidarum who has been to the ER multiple times with hyperemesis gravidarum and continues to presents secondary to nausea and vomiting. The patient states that she is currently working on getting her Medicaid. She was unable to obtain prescriptions given her on Friday when I saw her in the emergency department. Review of Systems Review of Systems All other systems were reviewed and found to be within normal limits, except as documented in this note. Current Medications Current Medications Current Medications Medications (Trade) Dose Ordered Sig/Geni Start Time Stop Time Status Last Admin Dose Admin Diphenhydramine HCl (Benadryl) 50 mg 1X ONCE 12/27/19 09:45 12/27/19 09:46 DC Prochlorperazine Edisylate (Compazine) 10 mg 1X ONCE 12/27/19 09:45 12/27/19 09:46 DC Allergies Allergies Allergies Coded Allergies Type Severity Reaction Last Updated Verified haloperidol Allergy Unknown 12/24/19 Yes Physical Exam Physical Exam Constitutional: Well developed, well nourished, appears to not feel well, not actively vomiting, non-toxic appearance. [] HENT: Normocephalic, atraumatic, bilateral external ears normal, oropharynx moist, no oral exudates, nose normal. [] Eyes: PERRLA, EOMI, conjunctiva normal, no discharge. [] Neck: Normal range of motion, no tenderness, supple, no stridor. [] Cardiovascular:Heart rate regular rhythm, no murmur [] Lungs & Thorax: Bilateral breath sounds clear to auscultation [] Abdomen: Bowel sounds normal, soft, no tenderness, no masses, no pulsatile masses. [] Skin: Warm, dry, no erythema, no rash. [] Back: No tenderness, no CVA tenderness. [] Extremities: No tenderness, no cyanosis, no clubbing, ROM intact, no edema. [] Neurologic: Alert and oriented X 3, normal motor function, normal sensory function, no focal deficits noted. [] Psychologic: Affect normal, judgement normal, mood normal. [] EKG EKG [] Radiology/Procedures Radiology/Procedures [] Course & Med Decision Making Course & Med Decision Making Pertinent Labs and Imaging studies reviewed. (See chart for details) Patient seen for hyperemesis gravidarum. Will give IM medications as the patient is a very hard stick and does not want IV or labs. We will also discuss with social work to follow-up on Medicaid enrollment. Patient feeling better at this time. multimedia services coordinator information given to the patient. Will discharge home Dragon Disclaimer Dragon Disclaimer This electronic medical record was generated, in whole or in part, using a voice recognition dictation system. Departure Departure: Impression: Primary Impression: Hyperemesis gravidarum Disposition: 01 HOME, SELF-CARE Condition: STABLE Referrals: BUD ROBERTSON MD (PCP) BEBA NGUYEN DO Dec 27, 2019 10:10
[2019-12-27 10:51] VITALS: BP 138/77
== END 2019-12-27 11:18 | disposition home or self-care (01) ==
LOC: ER 09:30
DX: O21.0 Mild hyperemesis gravidarum (principal); M79.7 Fibromyalgia; K58.9 Irritable bowel syndrome, unspecified; O99.331 Smoking (tobacco) complicating pregnancy, first trimester; Z3A.12 12 weeks gestation of pregnancy; Z90.49 Acquired absence of other specified parts of digestive tract; Z98.890 Other specified postprocedural states; Z88.8 Allergy status to other drugs, medicaments and biological substances
CPT/HCPCS: 96372; 99284; J0780; J1200

== ENCOUNTER 2019-12-27 16:10 | Emergency (ER) | payer SELFPAY ==
[~2019-12-27] VITALS: Ht 152.4 cm; Wt 61.5 kg
--- NOTE | 2019-12-27 16:23 | PHYS DOC ---
Past History Past Medical History: Anxiety, Constipation, Fibromyalgia, IBS, Other Additional Past Medical Histor: hyperemesis gravidarum, cyclic vomiting syndrome Past Surgical History: Cholecystectomy, , Other Additional Past Surgical Histo: exploratory laparoscopy Smoking: Cigarettes, Less than 1pk/day Alcohol Use: Occasionally Drug Use: Marijuana Adult General Chief Complaint Chief Complaint: VOMITING IN HPI HPI Patient is a 39-year-old -[place]enian female with hyperemesis gravidarum who presents to the ER with complaint of nausea and vomiting. Patient has been seen in the ER and extensive number of times and transferred to [place] previously for uncontrolled hyperemesis. She continues to come back to the ER and does not get the medications that are prescribed her secondary to lack of Medicaid reportedly. This is a second time seeing her today so an IV will be established we will check basic labs and will transfer her to [place]. Earlier she was given an injection of Benadryl and Compazine and was feeling better at that time. Review of Systems Review of Systems All other systems were reviewed and found to be within normal limits, except as documented in this note. Current Medications Current Medications Current Medications Medications (Trade) Dose Ordered Sig/Geni Start Time Stop Time Status Last Admin Dose Admin Sodium Chloride 1,000 ml @ 1,000 mls/hr 1X ONCE 12/27/19 16:30 12/27/19 17:29 UNV Allergies Allergies Allergies Coded Allergies Type Severity Reaction Last Updated Verified haloperidol Allergy Unknown 12/24/19 Yes Physical Exam Physical Exam Constitutional: Well developed, well nourished, animated, non-toxic appearance. [] HENT: Normocephalic, atraumatic, bilateral external ears normal, oropharynx moist, no oral exudates, nose normal. [] Eyes: PERRLA, EOMI, conjunctiva normal, no discharge. [] Neck: Normal range of motion, no tenderness, supple, no stridor. [] Cardiovascular:Heart rate regular rhythm, no murmur [] Lungs & Thorax: Bilateral breath sounds clear to auscultation [] Abdomen: Bowel sounds normal, soft, no tenderness, no masses, no pulsatile masses. [] Skin: Warm, dry, no erythema, no rash. [] Back: No tenderness, no CVA tenderness. [] Extremities: No tenderness, no cyanosis, no clubbing, ROM intact, no edema. [] Neurologic: Alert and oriented X 3, normal motor function, normal sensory function, no focal deficits noted. [] Psychologic: Affect normal, judgement normal, mood normal. [] EKG EKG [] Radiology/Procedures Radiology/Procedures [] Course & Med Decision Making Course & Med Decision Making Pertinent Labs and Imaging studies reviewed. (See chart for details) Patient seen for ongoing hyperemesis gravidarum. Will establish IV check basic labs transferred to [place] for further care. 1720: Patient's labs are unremarkable. Will transfer for continued care as the patient continues to return to the ER and is not getting relief of her symptoms. Dragon Disclaimer Dragon Disclaimer This electronic medical record was generated, in whole or in part, using a voice recognition dictation system. Departure Departure: Impression: Primary Impression: Hyperemesis gravidarum Disposition: 02 XFER SHT-TRM HOSP (Transfer to [place]) Condition: STABLE Referrals: BUD ROBERTSON MD (PCP) BEBA NGUYEN DO Dec 27, 2019 16:23
[2019-12-27] MEDS ORDERED: IV NORMAL SALINE 1,000ML 1,000 ML IV ONE (16:30)
[2019-12-27 16:53] LABS: BASO # 0.1 x10^3/uL (0.0-0.2); BASO % 1 % (0-3); EOS % 0 % (0-3); HEMATOCRIT 39.4 % (36.0-47.0); HEMOGLOBIN 13.4 g/dL (12.0-15.5); LYMPH # 1.8 x10^3/uL (1.0-4.8); LYMPH % 16 % (24-48); MEAN CORPUSCULAR HEMOGLOBIN 34 pg (25-35); MEAN CORPUSCULAR HGB CONC 34 g/dL (31-37); MEAN CORPUSCULAR VOLUME 101 fL (79-100); MONO # 0.7 x10^3/uL (0.0-1.1); MONO % 6 % (0-9); NEUT # 9.1 x10^3uL (1.8-7.7); NEUT % 78 % (31-73); PLATELET COUNT 296 x10^3/uL (140-400); RED BLOOD COUNT 3.89 x10^6/uL (3.50-5.40); RED CELL DISTRIBUTION WIDTH 15.2 % (11.5-14.5); WHITE BLOOD COUNT 11.7 x10^3/uL (4.0-11.0)
[2019-12-27 17:05] LABS: CALCIUM 8.9 mg/dL (8.5-10.1); CREATININE 0.5 mg/dL (0.6-1.0); GFR 174.1; POTASSIUM 3.6 mmol/L (3.5-5.1)
[2019-12-27 17:08] LABS: ALBUMIN 3.6 g/dL (3.4-5.0); ALBUMIN/GLOBULIN RATIO 1.1 (1.0-1.7); TOTAL BILIRUBIN 0.2 mg/dL (0.2-1.0)
[2019-12-27] MEDS ORDERED: ONDANSETRON PF 4 MG/2 ML VIAL. IVP ONE (17:45)
[2019-12-27] MEDS ORDERED: diphenhydrAMINE 50 MG/ML VIAL IVP ONE (18:00)
[2019-12-27 19:23] VITALS: BP 104/63
== END 2019-12-27 19:40 | disposition short-term general hospital (02) ==
LOC: ER 16:10
DX: O21.0 Mild hyperemesis gravidarum (principal); M79.7 Fibromyalgia; K58.9 Irritable bowel syndrome, unspecified; O99.331 Smoking (tobacco) complicating pregnancy, first trimester; Z3A.12 12 weeks gestation of pregnancy; Z90.49 Acquired absence of other specified parts of digestive tract; Z98.890 Other specified postprocedural states; Z88.8 Allergy status to other drugs, medicaments and biological substances
CPT/HCPCS: 36415; 80053; 85025; 96361; 96374; 96375; 99285; J1200; J2405; 99284-25; J7030

== ENCOUNTER 2020-01-05 11:43 | Emergency (ER) | payer OTHER ==
[~2020-01-05] VITALS: Ht 152.4 cm; Wt 60.7 kg
--- NOTE | 2020-01-05 11:57 | PHYS DOC ---
Past History Past Medical History: Anxiety, Constipation, Fibromyalgia, IBS, Other Additional Past Medical Histor: hyperemesis gravidarum, cyclic vomiting syndrome Past Surgical History: Cholecystectomy, , Other Additional Past Surgical Histo: exploratory laparoscopy Smoking: Cigarettes, Less than 1pk/day Alcohol Use: Occasionally Drug Use: Marijuana Adult General Chief Complaint Chief Complaint: VOMITING IN HPI HPI 30-year-old female presents as at approximately 13 weeks gestation with report of continued nausea and vomiting and left sided pelvic pain. Patient has been seen excessively in the emergency department for same (per [facility] review this is patient's 11th ED visit at [facility]). Patient does have a history of cyclic vomiting syndrome and marijuana abuse. Patient reports she has discontinued her marijuana abuse. Patient was last seen on 12/27/2019 and was tra nsferred to [facility] for same. She reports she received IV medication and fluids. Reports she has yet to establish OB care. Denies any vaginal bleeding. 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 Allergies Allergies Allergies Coded Allergies Type Severity Reaction Last Updated Verified haloperidol Allergy Unknown 12/24/19 Yes Physical Exam Physical Exam Constitutional: Well developed, well nourished, no acute distress, non-toxic appearance HENT: Normocephalic, atraumatic, oropharynx tacky Eyes: Conjunctiva normal, no discharge Neck: Normal range of motion, no tenderness, supple Cardiovascular: Heart rate normal, regular rhythm Lungs & Thorax: Bilateral breath sounds clear to auscultation, no wheezing Abdomen: Soft, mild left lower quadrant tenderness, no distention Skin: Warm, dry, no erythema, no rash Extremities: No tenderness, ROM intact, no edema Neurologic: Alert and oriented X 3, no focal deficits noted Psychologic: Affect normal, judgment normal Current Patient Data Vital Signs Vital Signs Date Time Temp Pulse Resp B/P (MAP) Pulse Ox O2 Delivery O2 Flow Rate FiO2 01/05/20 11:53 98.6 107 18 151/85 (107) 99 Room Air EKG EKG [] Radiology/Procedures Radiology/Procedures PROCEDURE: OB <14 WKS OB <14 WKS Clinical Indication: Abdominal pain and vomiting in . Comparison: Obstetric ultrasound 12/09/2019. TECHNIQUE: Real-time ultrasound imaging of the pelvis using transabdominal window is performed. Findings: Uterus measures 15.9 x 8.9 x 7.7 cm. The cervix length is approximately 4.8 cm. The cervix is closed. There is intrauterine gestational sac. pole is seen. Yolk sac not seen. Stalk like structure at the edge of the placenta extending to the anterior uterine wall is redemonstrated and may be a amniotic sheet. [place]-rump length 7.5 cm 13 weeks and 4 days. EDC ultrasound is July 08, 2020. Estimated heart rate 163 bpm. The right maternal ovary is normal. The left is not seen. IMPRESSION: 1. Single live intrauterine gestation, estimated sonographic gestational age 13 weeks and 4 days. 2. Remonstrated stalk-like structure connecting the placenta to the uterus. Finding may be a synechiae or amniotic sheet. Electronically signed by: Pradeep Harvey MD (01/05/2020 1:40 PM) [id number] Course & Med Decision Making Course & Med Decision Making Pertinent Labs and Imaging studies reviewed. (See chart for details) Patient presents at at approximately 13 weeks gestation with left-sided pelvic pain and nausea and vomiting. Patient with chronic hyperemesis gravidarum with this . Patient also with history of marijuana abuse. Labs obtained and posted to chart. UDS positive for THC. US with good heart tones. IVF hydration given with D5LR. Symptomatic treatment provided. Patient reports still feeling nauseated. Patient became disgruntled when discussed UDS results and concern for THC being part of issue. Patient given additional dose of Zofran ODT (as patient pulled out own IV). Of note, patient only with 1 episode of vomiting during ED stay. Patient continually asking for "strong meds". Patient advised cannot due to . Concern for drug seeking behavior. Patient stable for discharge with outpatient follow-up with PCP/OB. Discussed findings and plan with patient, who acknowledges understanding. Dragon Disclaimer Dragon Disclaimer This electronic medical record was generated, in whole or in part, using a voice recognition dictation system. Departure Departure: Impression: Primary Impression: Hyperemesis gravidarum Additional Impression: Marijuana abuse Disposition: 01 HOME, SELF-CARE Condition: STABLE Referrals: BUD ROBERTSON MD (PCP) Patient Instructions: Cyclic Vomiting Syndrome, Diet - Hyperemesis Gravidarum, Hyperemesis Gravidarum, Marijuana Abuse and Chemical Dependency Scripts Capsaicin (CAPSAICIN) 42.5 Gm Cream..g. 1 MARILY TP TID PRN for NAUSEA, #42.5 GM 0 Refills Prov: RUBÉN WALL DO 01/05/20 Problem Qualifiers RUBÉN WALL DO Jan 05, 2020 11:57
[2020-01-05] MEDS ORDERED: IV DEXTROSE 5%-LACT RINGERS 1,000 ML IV ONE (12:00)
[2020-01-05] MEDS ORDERED: diphenhydrAMINE 50 MG/ML VIAL IVP ONE (12:15)
[2020-01-05] MEDS ORDERED: PROCHLORPERAZINE 10 MG/2 ML VIAL. IV ONE (12:15)
[2020-01-05 12:28] LABS: BASO % 0 % (0-3); EOS % 0 % (0-3); HEMATOCRIT 37.2 % (36.0-47.0); HEMOGLOBIN 12.4 g/dL (12.0-15.5); LYMPH # 1.1 x10^3/uL (1.0-4.8); LYMPH % 13 % (24-48); MEAN CORPUSCULAR HEMOGLOBIN 34 pg (25-35); MEAN CORPUSCULAR HGB CONC 33 g/dL (31-37); MEAN CORPUSCULAR VOLUME 103 fL (79-100); MONO # 0.4 x10^3/uL (0.0-1.1); MONO % 5 % (0-9); NEUT % 81 % (31-73); PLATELET COUNT 280 x10^3/uL (140-400); RED BLOOD COUNT 3.63 x10^6/uL (3.50-5.40); RED CELL DISTRIBUTION WIDTH 14.5 % (11.5-14.5); WHITE BLOOD COUNT 8.6 x10^3/uL (4.0-11.0)
[2020-01-05 12:37] LABS: CALCIUM 8.7 mg/dL (8.5-10.1); CREATININE 0.5 mg/dL (0.6-1.0); GFR 174.1
[2020-01-05 12:40] LABS: POTASSIUM 4.6 mmol/L (3.5-5.1)
[2020-01-05 12:44] LABS: ALBUMIN 3.3 g/dL (3.4-5.0); ALBUMIN/GLOBULIN RATIO 0.9 (1.0-1.7); MAGNESIUM 1.8 mg/dL (1.8-2.4); TOTAL BILIRUBIN 0.2 mg/dL (0.2-1.0); TOTAL PROTEIN 6.8 g/dL (6.4-8.2)
[2020-01-05 13:25] VITALS: BP 135/74
[2020-01-05 13:42] LABS: BARBITURATES NEG (NEG); BENZODIAZEPINES NEG (NEG); CANNABINOIDS POS (NEG); COCAINE NEG (NEG); METHADONE NEG (NEG); OPIATES NEG (NEG); PHENCYCLIDINE NEG (NEG)
[2020-01-05 13:43] LABS: AMPHETAMINE/METHAMPHETAMINE NEG (NEG)
--- NOTE | 2020-01-05 13:44 | RAD ---
OB <14 WKS Clinical Indication: Abdominal pain and vomiting in . Comparison: Obstetric ultrasound 12/09/2019. TECHNIQUE: Real-time ultrasound imaging of the pelvis using transabdominal window is performed. Findings: Uterus measures 15.9 x 8.9 x 7.7 cm. The cervix length is approximately 4.8 cm. The cervix is closed. There is intrauterine gestational sac. pole is seen. Yolk sac not seen. Stalk like structure at the edge of the placenta extending to the anterior uterine wall is redemonstrated and may be a amniotic sheet. [place]-rump length 7.5 cm 13 weeks and 4 days. EDC ultrasound is July 08, 2020. Estimated heart rate 163 bpm. The right maternal ovary is normal. The left is not seen. IMPRESSION: 1. Single live intrauterine gestation, estimated sonographic gestational age 13 weeks and 4 days. 2. Redemonstrated stalk-like structure connecting the placenta to the uterus. Finding may be a synechiae or amniotic sheet. Electronically signed by: Pradeep Harvey MD (01/05/2020 1:40 PM) [id number]
[2020-01-05 14:02] LABS: AMORPHOUS SEDIMENT,UR PRESENT /HPF; BACTERIA,URINE 0 /HPF (0-FEW); BILIRUBIN,URINE NEG (NEG); CLARITY,URINE CLEAR; COLOR,URINE STRAW; GLUCOSE,URINE 500 mg/dL (NEG); NITRITE,URINE NEG (NEG); RBC,URINE 0 /HPF (0-2); SQUAMOUS EPITHELIAL CELL,UR FEW /LPF; UROBILINOGEN,URINE 0.2 mg/dL (0.2 mg/dL); WBC,URINE 0 /HPF (0-4)
[2020-01-05] MEDS ORDERED: CAPS42.513 TP (14:13)
[2020-01-05] MEDS ORDERED: ONDANSETRON PF 4 MG/2 ML VIAL. IVP ONE (14:15)
[2020-01-05] MEDS ORDERED: ONDANSETRON ODT 4 MG TAB.RAPDIS ONE (14:21)
[2020-01-05] MEDS ORDERED: ONDANSETRON ODT 4 MG TAB.RAPDIS PO ONE (14:45)
== END 2020-01-05 14:23 | disposition home or self-care (01) ==
LOC: ER 11:43
DX: O21.0 Mild hyperemesis gravidarum (principal); O99.321 Drug use complicating pregnancy, first trimester; F12.10 Cannabis abuse, uncomplicated; M79.7 Fibromyalgia; K58.9 Irritable bowel syndrome, unspecified; O99.331 Smoking (tobacco) complicating pregnancy, first trimester; Z3A.13 13 weeks gestation of pregnancy; Z88.8 Allergy status to other drugs, medicaments and biological substances
CPT/HCPCS: 36415; 76801; 80053; 80307; 81001; 83735; 84702; 85025; 96361; 96374; 96375; 99284; J0780; J1200

== ENCOUNTER 2020-01-08 15:32 | Emergency (ER) | payer OTHER ==
[~2020-01-08] VITALS: Ht 152.4 cm; Wt 60.7 kg
--- NOTE | 2020-01-08 16:14 | PHYS DOC ---
Past History Past Medical History: Anxiety, Constipation, Fibromyalgia, IBS, Other Additional Past Medical Histor: hyperemesis gravidarum, cyclic vomiting syndrome Past Surgical History: Cholecystectomy, , Other Additional Past Surgical Histo: exploratory laparoscopy Smoking: Cigarettes, Less than 1pk/day Alcohol Use: Occasionally Drug Use: Marijuana Adult General Chief Complaint Chief Complaint: NAUSEA/VOMITING/[facility] HPI 29-year-old female that is 14 weeks presents with vomiting and right lower quadrant abdominal pain. The patient has been in this emergency room several times in the last few weeks. Today, she tells me that she has right lower quadrant pain and vomiting that is not controlled with her oral Zofran. She took the Zofran this morning. Patient denies any trauma. She is not sure why her lower abdomen hurts. This is her fourth . She has never had this much vomiting with her previous pregnancies. She has been diagnosed several times in the last few weeks with hyperemesis. She does not currently follow with an OB. She denies fever chills. She denies vaginal discharge or bleeding. Denies dysuria or increased urinary frequency. Review of Systems Review of Systems Constitutional: Denies fever or chills [] Eyes: Denies change in visual acuity, redness, or eye pain [] HENT: Denies nasal congestion or sore throat [] Respiratory: Denies cough or shortness of breath [] Cardiovascular: No additional information not addressed in HPI [] GI: Denies abdominal pain, nausea, vomiting, bloody stools or diarrhea [] : Denies dysuria or hematuria [] Musculoskeletal: Denies back pain or joint pain [] Integument: Denies rash or skin lesions [] Neurologic: Denies headache, focal weakness or sensory changes [] Endocrine: Denies polyuria or polydipsia [] All other systems were reviewed and found to be within normal limits, except as documented in this note. Current Medications Current Medications Current Medications Medications (Trade) Dose Ordered Sig/Geni Start Time Stop Time Status Last Admin Dose Admin Ondansetron HCl (Zofran Odt) 8 mg 1X ONCE 01/08/20 16:30 01/08/20 16:10 DC Ondansetron HCl (Zofran) 8 mg 1X ONCE 01/08/20 16:15 01/08/20 16:16 UNV Allergies Allergies Allergies Coded Allergies Type Severity Reaction Last Updated Verified haloperidol Allergy Unknown 3/13/20 Yes Physical Exam Physical Exam Constitutional: Well developed, well nourished, no acute distress, non-toxic appearance. [] HENT: Normocephalic, atraumatic, bilateral external ears normal, oropharynx moist, no oral exudates, nose normal. [] Eyes: PERRLA, EOMI, conjunctiva normal, no discharge. [] Neck: Normal range of motion, no tenderness, supple, no stridor. [] Cardiovascular:Heart rate regular rhythm, no murmur [] Lungs & Thorax: Bilateral breath sounds clear to auscultation [] Abdomen: Bowel sounds normal, soft, no tenderness, no masses, no pulsatile masses. [] Skin: Warm, dry, no erythema, no rash. [] Back: No tenderness, no CVA tenderness. [] Extremities: No tenderness, no cyanosis, no clubbing, ROM intact, no edema. [] Neurologic: Alert and oriented X 3, normal motor function, normal sensory function, no focal deficits noted. [] Psychologic: Affect normal, judgement normal, mood normal. [] EKG EKG [] Radiology/Procedures Radiology/Procedures [] Impressions: OB ultrasound less than 14 weeks 01/08/2020 Clinical History: The patient is approximately 14 weeks with right-sided pelvic pain. Technique: A real-time ultrasound examination of the gravid uterus was performed. Multiple images were obtained. Findings: Comparison study is dated 01/05/2020. There is a single living IUP. The fetus is in a variable position. cardiac and somatic activity is seen. The heart rate is 150 beats per minutes. The maternal cervix is closed. It measures 4.5 cm in length. The placenta is posterior. No abnormality is seen. The amniotic fluid volume is within normal limits. The CRL of the pole measures 7.22 cm. This corresponds to an estimated gestational age by ultrasound of 13 weeks 3 days plus or minus a standard deviation of 8 days. A stalk-like structure is seen at the edge of the placenta extending to the anterior uterine wall which may represent an amniotic sheet. This is unchanged. The right ovary is not visualized. The left ovary measures 4.1 x 2.0 x 2.2 cm in size. No adnexal mass is seen. No free fluid is noted. IMPRESSION: Single living IUP with an estimated gestational age by ultrasound of 13 weeks 3 days plus or minus a standard deviation of 8 days. Electronically signed by: Juan Amato MD (01/08/2020 5:24 PM) [id number] DICTATED AND SIGNED BY: JUAN AMATO MD DATE: 01/08/201723 CC: DANYELLE HENDRICKS DO; BUD ROBERTSON MD ~ Course & Med Decision Making Course & Med Decision Making Pertinent Labs and Imaging studies reviewed. (See chart for details) The patient was given 4 mg of Zofran IM and 25 mg of Benadryl IM. Her OB ultrasound shows 1 live baby in appropriate position. No other abnormalities were noted. See official report for more details. The patient refused labs and an IV and urinalysis. She has been positive for marijuana in the past. She claims she is no longer using it. Her vomiting has been controlled with the Zofran and Benadryl. We discussed strategies of how to use her antiemetic medications. She will also inform her OB of this visit and continue to work with them for them consistent strategy for her vomiting. She is stable for discharge at this time. [] Dragon Disclaimer Dragon Disclaimer This electronic medical record was generated, in whole or in part, using a voice recognition dictation system. Departure Departure: Impression: Primary Impression: Hyperemesis gravidarum Disposition: 01 HOME, SELF-CARE Condition: IMPROVED Referrals: BUD ROBERTSON MD (PCP) Patient Instructions: Diet - Hyperemesis Gravidarum, Hyperemesis Gravidarum DANYELLE HENDRICKS DO Jan 08, 2020 16:14
[2020-01-08] MEDS ORDERED: IV NORMAL SALINE 1,000ML 1,000 ML IV ONE (16:15)
[2020-01-08] MEDS ORDERED: ONDANSETRON ODT 4 MG TAB.RAPDIS PO ONE (16:30)
[2020-01-08] MEDS ORDERED: ONDANSETRON PF 4 MG/2 ML VIAL. IM ONE (16:45)
[2020-01-08] MEDS ORDERED: diphenhydrAMINE 50 MG/ML VIAL IM ONE (17:15)
--- NOTE | 2020-01-08 17:27 | RAD ---
OB ultrasound less than 14 weeks 01/08/2020 Clinical History: The patient is approximately 14 weeks with right-sided pelvic pain. Technique: A real-time ultrasound examination of the gravid uterus was performed. Multiple images were obtained. Findings: Comparison study is dated 01/05/2020. There is a single living IUP. The fetus is in a variable position. cardiac and somatic activity is seen. The heart rate is 150 beats per minutes. The maternal cervix is closed. It measures 4.5 cm in length. The placenta is posterior. No abnormality is seen. The amniotic fluid volume is within normal limits. The CRL of the pole measures 7.22 cm. This corresponds to an estimated gestational age by ultrasound of 13 weeks 3 days plus or minus a standard deviation of 8 days. A stalk-like structure is seen at the edge of the placenta extending to the anterior uterine wall which may represent an amniotic sheet. This is unchanged. The right ovary is not visualized. The left ovary measures 4.1 x 2.0 x 2.2 cm in size. No adnexal mass is seen. No free fluid is noted. IMPRESSION: Single living IUP with an estimated gestational age by ultrasound of 13 weeks 3 days plus or minus a standard deviation of 8 days. Electronically signed by: Juan Gotti MD (01/08/2020 5:24 PM) [id number]
[2020-01-08 18:00] VITALS: BP 142/85
== END 2020-01-08 18:28 | disposition home or self-care (01) ==
LOC: ER 15:32
DX: O21.0 Mild hyperemesis gravidarum (principal); M79.7 Fibromyalgia; K58.9 Irritable bowel syndrome, unspecified; O99.331 Smoking (tobacco) complicating pregnancy, first trimester; Z3A.13 13 weeks gestation of pregnancy; Z90.49 Acquired absence of other specified parts of digestive tract; Z98.890 Other specified postprocedural states; Z88.8 Allergy status to other drugs, medicaments and biological substances
CPT/HCPCS: 76801; 96372; 99285; J1200; J2405

== ENCOUNTER 2020-02-27 11:15 | Emergency (ER) | payer OTHER ==
[~2020-02-27] VITALS: Ht 152.4 cm; Wt 60.7 kg
[2020-02-27 11:25] VITALS: BP 160/101
[2020-02-27] MEDS ORDERED: BISACODYL 10 MG SUPP.RECT PR ONE (11:45)
[2020-02-27] MEDS ORDERED: SUMAtriptan SUCC 6 MG/0.5 ML VIAL SQ ONE (11:45)
[2020-02-27] MEDS ORDERED: ONDANSETRON ODT 4 MG TAB.RAPDIS PO ONE (11:45)
[2020-02-27] MEDS ORDERED: diphenhydrAMINE 50 MG/ML VIAL IM ONE (11:45)
--- NOTE | 2020-02-27 11:52 | PHYS DOC ---
Past History Past Medical History: Anxiety, Constipation, Fibromyalgia, IBS, Other Additional Past Medical Histor: hyperemesis gravidarum, cyclic vomiting syndrome Past Surgical History: Cholecystectomy, , Other Additional Past Surgical Histo: exploratory laparoscopy Smoking: Cigarettes, Less than 1pk/day Alcohol Use: Occasionally Drug Use: Marijuana General Adult EDM: Chief Complaint: NAUSEA/VOMITING/DIARRHEA HPI: HPI: Patient is a 29-year-old female who is approximately 18 weeks who is been seen in our emergency department multiple times secondary to a hyperemesis type syndrome. She does admit to smoking marijuana regularly. She presents today stating she is unable to control her nausea with Zofran at home she is also constipated. She does report that she is recently had an ultrasound that did show that she had a intrauterine . She denies any fever chills or sweats. She has had no dysuria or gross hematuria. She states is been at least a couple of days since her last bowel movement. [] Review of Systems: Review of Systems: Constitutional: Denies fever or chills Eyes: Denies change in visual acuity HENT: Denies nasal congestion or sore throat Respiratory: Denies cough or shortness of breath Cardiovascular: Denies chest pain or edema GI: Per HPI : Denies dysuria Musculoskeletal: Denies back pain or joint pain Integument: Denies rash Neurologic: Denies headache, focal weakness or sensory changes Endocrine: Denies polyuria or polydipsia Lymphatic: Denies swollen glands Psychiatric: Reports anxiety Heart Score: Risk Factors: Risk Factors: DM, Current or recent (<one month) smoker, HTN, HLP, family history of CAD, obesity. Risk Scores: Score 0 - 3: 2.5% MACE over next 6 weeks - Discharge Home Score 4 - 6: 20.3% MACE over next 6 weeks - Admit for Clinical Observation Score 7 - 10: 72.7% MACE over next 6 weeks - Early Invasive Strategies Current Medications: Current Meds: Current Medications Medications (Trade) Dose Ordered Sig/Geni Start Time Stop Time Status Last Admin Dose Admin Bisacodyl (Dulcolax Supp) 10 mg 1X ONCE 02/27/20 11:45 02/27/20 11:46 Diphenhydramine HCl (Benadryl) 25 mg 1X ONCE 02/27/20 11:45 5/17/20 11:46 Ondansetron HCl (Zofran Odt) 8 mg 1X ONCE 02/27/20 11:45 02/27/20 11:46 Sumatriptan Succinate (Imitrex) 6 mg 1X ONCE 02/27/20 11:45 02/27/20 11:46 Allergies: Allergies: Allergies Coded Allergies Type Severity Reaction Last Updated Verified haloperidol Allergy Unknown 12/24/19 Yes Physical Exam: PE: Constitutional: Well developed, well nourished, mild to moderate distress, non- toxic appearance. [] HENT: Normocephalic, atraumatic, bilateral external ears normal, oropharynx moist, no oral exudates, nose normal. [] Eyes: PERRLA, EOMI, conjunctiva normal, no discharge. [] Neck: Normal range of motion, no tenderness, supple, no stridor. [] Cardiovascular: Tachycardic no murmur [] Lungs & Thorax: Bilateral breath sounds clear to auscultation [] Abdomen: Bowel sounds normal, soft, no tenderness, no masses, no pulsatile masses. [] Skin: Warm, dry, no erythema, no rash. [] Back: No tenderness, no CVA tenderness. [] Extremities: No tenderness, no cyanosis, no clubbing, ROM intact, no edema. [] Neurologic: Alert and oriented X 3, normal motor function, normal sensory function, no focal deficits noted. [] Psychologic: Extremely anxious. [] Current Patient Data: Vital Signs: Vital Signs Date Time Temp Pulse Resp B/P (MAP) Pulse Ox O2 Delivery O2 Flow Rate FiO2 02/27/20 11:25 98.5 105 22 160/101 (120) 100 Room Air EKG: EKG: [] Radiology/Procedures: Radiology/Procedures: [] Course & Med Decision Making: Course & Med Decision Making Pertinent Labs and Imaging studies reviewed. (See chart for details) [ED course: Evaluation reveals a very difficult to examine 29-year-old female as her actions seem extreme for her complaint in the emergency department. She was yelling screaming and moaning extremely loud for several minutes. I went back into the room and told her that she needed to try to calm down and that the medicines would only work if she tried to control her emotional state. This made her quite angry. We did provide her with 10 mg of Reglan IM 25 mg of Benadryl IM and a Dulcolax suppository to help with her constipation. I let her know in no uncertain terms that she needs to follow with her OB in the very near future so he can help her get a handle on her hyperemesis syndrome.] Shanye Disclaimer: Shayne Disclaimer: This electronic medical record was generated, in whole or in part, using a voice recognition dictation system. Departure Departure: Impression: Primary Impression: Cannabis hyperemesis syndrome concurrent with and due to cannabis abuse Additional Impression: Hyperemesis affecting , antepartum Disposition: HOME/RESIDENCE PRIOR TO ADM Condition: STABLE Referrals: BUD ROBERTSON MD (PCP) Patient Instructions: Cyclic Vomiting Syndrome, Diet - Hyperemesis Gravidarum, Hyperemesis Gravidarum Additional Instructions: It is incredibly important for you to follow with your [employer] in the very near future. Scripts Metoclopramide Hcl (REGLAN) 10 Mg Tablet 10 MG PO PRN Q8HRS PRN for NAUSEA/VOMITING, #30 TAB 3 Refills Take 25 mg of Benadryl with each dose Prov: MOHAN WALTER DO 02/27/20 MOHAN WALTER DO February 27, 2020 11:52
[2020-02-27] MEDS ORDERED: METOCLOPRAMIDE HCL 10 MG/2 ML VIAL. IM ONE (12:00)
[2020-02-27] MEDS ORDERED: METO10TA81 PO (12:26)
[2020-02-27] MEDS ORDERED: BISA10SU55 RC (12:29)
== END 2020-02-27 12:46 | disposition home or self-care (01) ==
LOC: ER 11:15
DX: O99.321 Drug use complicating pregnancy, first trimester (principal); O21.0 Mild hyperemesis gravidarum; F12.188 Cannabis abuse with other cannabis-induced disorder; Z3A.18 18 weeks gestation of pregnancy; M79.7 Fibromyalgia; O99.332 Smoking (tobacco) complicating pregnancy, second trimester; Z88.8 Allergy status to other drugs, medicaments and biological substances
CPT/HCPCS: 96372; 99284; J1200; J2765; J3030; Q0162

== ENCOUNTER 2020-09-03 10:00 | Emergency (ER) | payer OTHER ==
[~2020-09-03] VITALS: Ht 152.4 cm; Wt 60.7 kg
[~2020-09-03 10:00] MED LIST changes: +BISA10SU55 RC; -CAPS42.513 TP; +CAPS42.514 TP
--- NOTE | 2020-09-03 10:34 | PHYS DOC ---
Past History Past Medical History: Anxiety, Constipation, Fibromyalgia, IBS, Other Additional Past Medical Histor: hyperemesis gravidarum, cyclic vomiting syndrome Past Surgical History: Cholecystectomy, , Other Additional Past Surgical Histo: exploratory laparoscopy Smoking: Cigarettes, Less than 1pk/day Alcohol Use: Occasionally Drug Use: Marijuana General Adult EDM: Chief Complaint: NAUSEA/VOMITING/DIARRHEA HPI: HPI: Patient is a 29-year-old female who presented to ER today for evaluation of nausea vomiting and feeling weak for the last 2 days. Patient feels dehydrated. Patient denies any fever. Patient denies being exposed to anybody tested positive COVID-19. Patient has history of cyclic vomiting syndrome. Review of Systems: Review of Systems: Constitutional: Denies fever or chills Eyes: Denies change in visual acuity HENT: Denies nasal congestion or sore throat Respiratory: Denies cough or shortness of breath Cardiovascular: Denies chest pain or edema GI: Positive for abdominal pain, nausea vomiting, no diarrhea : Denies dysuria Musculoskeletal: Denies back pain or joint pain Integument: Denies rash Neurologic: Denies headache, focal weakness or sensory changes Endocrine: Denies polyuria or polydipsia Lymphatic: Denies swollen glands Psychiatric: Denies depression or anxiety Current Medications: Current Meds: Current Medications Medications (Trade) Dose Ordered Sig/Geni Start Time Stop Time Status Last Admin Dose Admin Ondansetron HCl (Zofran) 4 mg 1X ONCE 09/03/20 10:45 09/03/20 10:46 UNV Prochlorperazine Edisylate (Compazine) 5 mg 1X ONCE 09/03/20 10:45 09/03/20 10:46 UNV Sodium Chloride 1,000 ml @ 1,000 mls/hr Q1H 09/03/20 10:45 09/03/20 11:44 UNV Allergies: Allergies: Allergies Coded Allergies Type Severity Reaction Last Updated Verified haloperidol Allergy Unknown 12/24/19 Yes Physical Exam: PE: Constitutional: Well developed, well nourished, no acute distress, non-toxic appearance. [] HENT: Normocephalic, atraumatic, bilateral external ears normal, oropharynx moist, no oral exudates, nose normal. [] Eyes: PERRLA, EOMI, conjunctiva normal, no discharge. [] Neck: Normal range of motion, no tenderness, supple, no stridor. [] Cardiovascular:Heart rate regular rhythm, no murmur [] Lungs & Thorax: Bilateral breath sounds clear to auscultation [] Abdomen: Bowel sounds normal, soft, no tenderness, no masses, no pulsatile mass es. [] Skin: Warm, dry, no erythema, no rash. [] Back: No tenderness, no CVA tenderness. [] Extremities: No tenderness, no cyanosis, no clubbing, ROM intact, no edema. [] Neurologic: Alert and oriented X 3, normal motor function, normal sensory function, no focal deficits noted. [] Psychologic: Affect normal, judgement normal, mood normal. [] Current Patient Data: Labs: Laboratory Tests Test 09/03/20 10:53 White Blood Count 10.2 x10^3/uL Red Blood Count 4.50 x10^6/uL Hemoglobin 14.1 g/dL Hematocrit 43.1 % Mean Corpuscular Volume 96 fL Mean Corpuscular Hemoglobin 31 pg Mean Corpuscular Hemoglobin Concent 33 g/dL Red Cell Distribution Width 15.5 % Platelet Count 269 x10^3/uL Neutrophils (%) (Auto) 84 % Lymphocytes (%) (Auto) 13 % Monocytes (%) (Auto) 3 % Eosinophils (%) (Auto) 0 % Basophils (%) (Auto) 1 % Neutrophils # (Auto) 8.5 x10^3uL Lymphocytes # (Auto) 1.4 x10^3/uL Monocytes # (Auto) 0.3 x10^3/uL Eosinophils # (Auto) 0.0 x10^3/uL Basophils # (Auto) 0.1 x10^3/uL Sodium Level 137 mmol/L Potassium Level 3.5 mmol/L Chloride Level 104 mmol/L Carbon Dioxide Level 21 mmol/L Anion Gap 12 Blood Urea Nitrogen 11 mg/dL Creatinine 0.7 mg/dL Estimated GFR (Cockcroft-Gault) 118.1 BUN/Creatinine Ratio 16 Glucose Level 150 mg/dL Calcium Level 9.0 mg/dL Total Bilirubin 0.3 mg/dL Aspartate Amino Transf (AST/SGOT) 14 U/L Alanine Aminotransferase (ALT/SGPT) 19 U/L Alkaline Phosphatase 86 U/L Total Protein 7.7 g/dL Albumin 4.1 g/dL Albumin/Globulin Ratio 1.1 Lipase 40 U/L Serum Test, Qualitative Negative Current Medications Medications (Trade) Dose Ordered Sig/Geni Route PRN Reason Start Time Stop Time Status Last Admin Dose Admin Sodium Chloride 1,000 ml @ 1,000 mls/hr Q1H IV 09/03/20 10:45 09/03/20 11:44 DC 09/03/20 10:45 Prochlorperazine Edisylate (Compazine) 5 mg 1X ONCE IVP 09/03/20 10:45 09/03/20 10:46 DC 09/03/20 10:45 Ondansetron HCl (Zofran) 4 mg 1X ONCE IVP 09/03/20 10:45 09/03/20 10:46 DC 09/03/20 10:45 Iohexol (Omnipaque 300 Mg/ml) 75 ml 1X ONCE IV 09/03/20 12:15 09/03/20 12:16 DC 09/03/20 12:15 Morphine Sulfate (Morphine 4mg Syringe) 4 mg 1X ONCE IV 09/03/20 12:45 09/03/20 12:49 DC 09/03/20 12:37 Vital Signs: Vital Signs Date Time Temp Pulse Resp B/P (MAP) Pulse Ox O2 Delivery O2 Flow Rate FiO2 09/03/20 10:16 98.5 89 16 153/98 (116 98 Room Air EKG: EKG: [] Radiology/Procedures: Radiology/Procedures: [][address] [address] IMAGING REPORT Signed PATIENT: DANDY LEVY ACCOUNT: [id number] : 1990 LOCATION: ER AGE: 29 SEX: F EXAM STATUS: REG ER ORD. PHYSICIAN: NATALIA RENO DO REASON: ABDOMINAL PAIN, NAUSEA, VOMITING PROCEDURE: CT ABD PELV W/ IV CONTRST ONLY CT ABD PELV W/ IV CONTRST ONLY History: Reason: ABDOMINAL PAIN, NAUSEA, VOMITING / Spl. Instructions: / History: Comparison: 01/22/2019 Technique: After administration of intravenous contrast, helical CT of the abdomen and pelvis was performed from the lung bases through the ischial tuberosities. Coronal and sagittal reconstructions were obtained. 75 mL of Omnipaque 300 were used. One or more of the following dose reduction techniques were utilized: Automated exposure control (AEC), Adjustment of mA and/or kV according to patient size, Use of iterative reconstruction technique such as ASiR, CT scan done according to ALARA and image gently/image wisely Abdomen Findings: The visualized lung bases are clear. The liver, pancreas, spleen, and bilateral adrenal glands are normal. Cholecystectomy. Symmetric renal enhancement. There is no focal renal mass. There is no hydronephrosis. The visualized loops of small bowel are normal. The visualized loops of large bowel are normal. There is no evidence of bowel obstruction. Appendix is normal. There is no free fluid. There is no mesenteric or retroperitoneal adenopathy. The abdominal aorta is normal in caliber. Pelvis Findings: Urinary bladder is normal. Uterus and ovaries are present. No pelvic free fluid. There is no pelvic or inguinal adenopathy. There is no acute bony abnormality. IMPRESSION: No acute findings. Electronically signed by: Bev Dos Santos MD (09/03/2020 1:12 PM) [id number] DICTATED AND SIGNED BY: BEV DOS SANTOS MD DATE: 09/03/201311 CC: PCP,DELFINO; NATALIA RENO DO ~MTH0 0 Heart Score: Risk Factors: Risk Factors: DM, Current or recent (<one month) smoker, HTN, HLP, family history of CAD, obesity. Risk Scores: Score 0 - 3: 2.5% MACE over next 6 weeks - Discharge Home Score 4 - 6: 20.3% MACE over next 6 weeks - Admit for Clinical Observation Score 7 - 10: 72.7% MACE over next 6 weeks - Early Invasive Strategies Course & Med Decision Making: Course & Med Decision Making Pertinent Labs and Imaging studies reviewed. (See chart for details) Patient is a 29-year-old female who presented to ER for nausea vomiting abdominal pain. Patient has been evaluated here numerous times for the same problem. CT scan did not show any acute problem. Patient was given medication in the ER, she was sleeping in the room when this physician came in to explain the lab results and CT scan report. Patient requested some nausea medication to go home with. Vanon Disclaimer: Shayne Disclaimer: This electronic medical record was generated, in whole or in part, using a voice recognition dictation system. Departure Departure: Impression: Primary Impression: Cyclic vomiting syndrome Disposition: 01 DC HOME SELF CARE/HOMELESS Condition: IMPROVED Referrals: PCP,NO (PCP) PLEASE FOLLOW UP WITH YOUR DOCTOR THIS WEEK Patient Instructions: Cyclic Vomiting Syndrome Additional Instructions: Thank you for visiting our Emergency Department. We appreciate you trusting us with your care. If any additional problems come up don't hesitate to return to visit us. Please follow up with your primary care provider so they can plan additional care if needed and know about the problem that you had. If symptoms worsen come back to the Emergency Department. Any concerning symptoms that start such as chest pain, shortness of air, weakness or numbness on one side of the body, running high fevers or any other concerning symptoms return to the ER. Scripts Ondansetron Hcl (ZOFRAN) 4 Mg Tablet 1 TAB PO PRN Q6-8HRS PRN for NAUSEA, #30 TAB Prov: NATALIA RENO DO 09/03/20 Metoclopramide Hcl (REGLAN) 10 Mg Tablet 1 TAB PO QID PRN for NAUSEA for 10 Days, #40 TAB 0 Refills before food and bedtime Prov: NATALIA RENO DO 09/03/20 NATALIA RENO DO Sep 03, 2020 10:34
[2020-09-03] MEDS: PROCHLORPERAZINE 10 MG/2 ML VIAL. IVP ONE (10:45)
[2020-09-03] MEDS: ONDANSETRON PF 4 MG/2 ML VIAL. IVP ONE (10:45)
[2020-09-03] MEDS: IV NORMAL SALINE 1,000ML 1,000 ML IV SCH (10:45)
[2020-09-03 11:25] LABS: BASO # 0.1 x10^3/uL (0.0-0.2); BASO % 1 % (0-3); EOS % 0 % (0-3); HEMATOCRIT 43.1 % (36.0-47.0); HEMOGLOBIN 14.1 g/dL (12.0-15.5); LYMPH # 1.4 x10^3/uL (1.0-4.8); LYMPH % 13 % (24-48); MEAN CORPUSCULAR HEMOGLOBIN 31 pg (25-35); MEAN CORPUSCULAR HGB CONC 33 g/dL (31-37); MEAN CORPUSCULAR VOLUME 96 fL (79-100); MONO # 0.3 x10^3/uL (0.0-1.1); MONO % 3 % (0-9); NEUT # 8.5 x10^3uL (1.8-7.7); NEUT % 84 % (31-73); PLATELET COUNT 269 x10^3/uL (140-400); RED CELL DISTRIBUTION WIDTH 15.5 % (11.5-14.5); WHITE BLOOD COUNT 10.2 x10^3/uL (4.0-11.0)
[2020-09-03 11:29] LABS: CREATININE 0.7 mg/dL (0.6-1.0); GFR 118.1; POTASSIUM 3.5 mmol/L (3.5-5.1)
[2020-09-03 11:31] LABS: PREG TEST PT QUAL NEGATIVE (NEG)
[2020-09-03 11:35] LABS: ALBUMIN 4.1 g/dL (3.4-5.0); ALBUMIN/GLOBULIN RATIO 1.1 (1.0-1.7); TOTAL BILIRUBIN 0.3 mg/dL (0.2-1.0); TOTAL PROTEIN 7.7 g/dL (6.4-8.2)
[2020-09-03] MEDS: IOHEXOL 300 MG/ML 75 ML VIAL. IV ONE (12:15)
[2020-09-03] MEDS: MORPHINE SULFATE 4 MG/ML DISP.SYRIN. IV ONE (12:37)
--- NOTE | 2020-09-03 13:15 | RAD ---
CT ABD PELV W/ IV CONTRST ONLY History: Reason: ABDOMINAL PAIN, NAUSEA, VOMITING / Spl. Instructions: / History: Comparison: 01/22/2019 Technique: After administration of intravenous contrast, helical CT of the abdomen and pelvis was performed from the lung bases through the ischial tuberosities. Coronal and sagittal reconstructions were obtained. 75 mL of Omnipaque 300 were used. One or more of the following dose reduction techniques were utilized: Automated exposure control (AEC), Adjustment of mA and/or kV according to patient size, Use of iterative reconstruction technique such as ASiR, CT scan done according to ALARA and image gently/image wisely Abdomen Findings: The visualized lung bases are clear. The liver, pancreas, spleen, and bilateral adrenal glands are normal. Cholecystectomy. Symmetric renal enhancement. There is no focal renal mass. There is no hydronephrosis. The visualized loops of small bowel are normal. The visualized loops of large bowel are normal. There is no evidence of bowel obstruction. Appendix is normal. There is no free fluid. There is no mesenteric or retroperitoneal adenopathy. The abdominal aorta is normal in caliber. Pelvis Findings: Urinary bladder is normal. Uterus and ovaries are present. No pelvic free fluid. There is no pelvic or inguinal adenopathy. There is no acute bony abnormality. IMPRESSION: No acute findings. Electronically signed by: Noel Dos Santos MD (09/03/2020 1:12 PM) [id number]
[2020-09-03 13:20] VITALS: BP 138/96
[2020-09-03] MEDS ORDERED: METO10TA81 PO (13:34)
[2020-09-03] MEDS ORDERED: ONDA4TAB7 PO (13:40)
== END 2020-09-03 13:39 | disposition home or self-care (01) ==
LOC: ER 10:00
DX: R11.15 Cyclical vomiting syndrome unrelated to migraine (principal); M79.7 Fibromyalgia; K58.9 Irritable bowel syndrome, unspecified; F17.210 Nicotine dependence, cigarettes, uncomplicated; Z90.49 Acquired absence of other specified parts of digestive tract; Z98.890 Other specified postprocedural states; Z88.8 Allergy status to other drugs, medicaments and biological substances
CPT/HCPCS: 36415; 74177; 80053; 83690; 84703; 85025; 96361; 96374; 96375; J0780; J2270; J2405; Q9967; 99285-25; J7030

== ENCOUNTER 2020-11-08 11:10 | Emergency (ER) | payer OTHER ==
[~2020-11-08] VITALS: Ht 152.4 cm; Wt 57.7 kg
[~2020-11-08 11:10] MED LIST changes: +ONDA4TAB7 PO
[2020-11-08] MEDS ORDERED: ONDANSETRON PF 4 MG/2 ML VIAL. ONE (12:11)
[2020-11-08] MEDS ORDERED: IV NORMAL SALINE 1,000ML 1,000 ML IV ONE ×2 (12:15→14:00)
[2020-11-08] MEDS ORDERED: ONDANSETRON PF 4 MG/2 ML VIAL. IVP ONE (12:15)
[2020-11-08] MEDS ORDERED: HALOPERIDOL LACT 5 MG/ML VIAL. IVP ONE (12:15)
--- NOTE | 2020-11-08 12:33 | PHYS DOC ---
Past History Past Medical History: Other Additional Past Medical Histor: HYPEREMESIS Past Surgical History: Cholecystectomy, Additional Past Surgical Histo: exploratory laparoscopy Smoking: Cigarettes, Less than 1pk/day Alcohol Use: None Drug Use: Marijuana Adult General Chief Complaint Chief Complaint: NAUSEA/VOMITING/DIARRHEA HPI HPI Patient is a 29-year-old female past medical history of cyclic vomiting syndrome who presents to the emergency room complaining of nausea, vomiting, dehydration. Patient states that she has been having symptoms for the last 2 days. She is not able to keep anything down. She has been taking oral Zofran at home without relief. She denies sore throat, URI symptoms, cough, shortness of breath, chest pain, abdominal pain, urinary symptoms. This is very similar to previous episodes. Review of Systems Review of Systems Complete ROS is negative unless otherwise documented in HPI Current Medications Current Medications Current Medications Medications (Trade) Dose Ordered Sig/Geni Start Time Stop Time Status Last Admin Dose Admin Haloperidol Lactate (Haldol) 5 mg 1X ONCE 11/08/20 12:15 11/08/20 12:16 UNV Ondansetron HCl (Zofran) 4 mg STK-MED ONCE 11/08/20 12:11 11/08/20 12:11 DC Sodium Chloride 1,000 ml @ 1,000 mls/hr 1X ONCE 11/08/20 12:15 11/08/20 13:14 11/08/20 12:14 1,000 MLS/HR Allergies Allergies Allergies Coded Allergies Type Severity Reaction Last Updated Verified haloperidol Allergy Unknown 12/24/19 Yes Physical Exam Physical Exam General: Awake, alert, NAD. Well Nourished, well hydrated. Cooperative HEENT: Atraumatic, EOMI, PERRL, airway patent, dry oral mucosa Neck: Supple, trachea midline Respiratory: CTA bilaterally, normal effort, no wheezing/crackles CV: Tachycardic, no murmur, cap refill <2 GI: Soft, nondistended, nontender, no masses MSK: No obvious deformities Skin: Warm, dry, intact Neuro: A&O x3, speech NL, sensory and motor grossly intact, no focal deficits Psych: Normal affect, normal mood, not suicidal or homicidal Current Patient Data Vital Signs Vital Signs Date Time Temp Pulse Resp B/P (MAP) Pulse Ox O2 Delivery O2 Flow Rate FiO2 11/08/20 12:05 99.0 129 20 167/109 (128) 96 Room Air EKG EKG [] Radiology/Procedures Radiology/Procedures [] Heart Score Risk Factors: Risk Factors: DM, Current or recent (<one month) smoker, HTN, HLP, family history of CAD, obesity. Risk Scores: Risk Factors: DM, Current or recent (<one month) smoker, HTN, HLP, family history of CAD, obesity. Course & Med Decision Making Course & Med Decision Making Pertinent Labs and Imaging studies reviewed. (See chart for details) Patient is 29-year-old female presents to the emergency room complaining of nausea, vomiting, dehydration. Patient is tachycardic and appears dehydrated on exam. She was given fluids and nausea medicine. This is very similar to patient's previous episodes. She does not have any acute abdomen on exam. Patient is . She does not have any abdominal pain does not need an ultrasound at this time. We did discuss that her test was positive. Patient is feeling much better and is ready to go home. Patient's test results and vitals while in the ED were fully reviewed and discussed with the patient. Patient is stable and at this time does not need admission to the hospital. We have discussed strict return precautions and the importance of following up with their Primary Care Physician. Patient stated understanding and was given an opportunity to ask any questions. Patient is in agreement with plan. Dragon Disclaimer Dragon Disclaimer This electronic medical record was generated, in whole or in part, using a voice recognition dictation system. Departure Departure: Impression: Primary Impression: Cyclic vomiting syndrome Additional Impression: Disposition: 01 DC HOME SELF CARE/HOMELESS Condition: STABLE Referrals: PCP,NO (PCP) Patient Instructions: Cyclic Vomiting Syndrome Scripts Pyridoxine Hcl (PYRIDOXINE HCL ) 25 Mg Tablet 1 TAB PO DAILY for nausea for 30 Days, #30 TAB 0 Refills Prov: MITCHELL POST MD 11/08/20 Ondansetron (ONDANSETRON ODT) 4 Mg Tab.rapdis 1 TAB PO PRN Q6-8HRS for nausea, #16 TAB Prov: MITCHELL POST MD 11/08/20 Problem Qualifiers MITCHELL POST MD Nov 08, 2020 12:33
[2020-11-08 12:53] LABS: BASO # 0.1 x10^3/uL (0.0-0.2); BASO % 1 % (0-3); EOS % 0 % (0-3); HEMATOCRIT 48.5 % (36.0-47.0); HEMOGLOBIN 16.5 g/dL (12.0-15.5); LYMPH # 2.4 x10^3/uL (1.0-4.8); LYMPH % 22 % (24-48); MEAN CORPUSCULAR HEMOGLOBIN 33 pg (25-35); MEAN CORPUSCULAR HGB CONC 34 g/dL (31-37); MEAN CORPUSCULAR VOLUME 97 fL (79-100); MONO # 0.8 x10^3/uL (0.0-1.1); MONO % 7 % (0-9); NEUT # 7.4 x10^3uL (1.8-7.7); NEUT % 69 % (31-73); PLATELET COUNT 244 x10^3/uL (140-400); RED BLOOD COUNT 4.98 x10^6/uL (3.50-5.40); WHITE BLOOD COUNT 10.7 x10^3/uL (4.0-11.0)
[2020-11-08 13:12] LABS: CALCIUM 8.7 mg/dL (8.5-10.1); CREATININE 0.9 mg/dL (0.6-1.0); GFR 88.4
[2020-11-08 13:18] LABS: ALBUMIN 4.5 g/dL (3.4-5.0); ALBUMIN/GLOBULIN RATIO 1.2 (1.0-1.7); TOTAL BILIRUBIN 0.8 mg/dL (0.2-1.0); TOTAL PROTEIN 8.4 g/dL (6.4-8.2)
[2020-11-08 14:45] LABS: COLOR,URINE YELLOW
[2020-11-08 14:46] LABS: BILIRUBIN,URINE NEG (NEG); CLARITY,URINE HAZY; GLUCOSE,URINE NEG (NEG)
[2020-11-08 14:47] LABS: NITRITE,URINE NEG (NEG); UROBILINOGEN,URINE 0.2 mg/dL (0.2 mg/dL)
[2020-11-08 14:50] LABS: BACTERIA,URINE FEW /HPF (0-FEW); SQUAMOUS EPITHELIAL CELL,UR MANY /LPF
[2020-11-08 14:56] VITALS: BP 142/88
[2020-11-08] MEDS ORDERED: ONDA4TAB12 PO (15:05)
[2020-11-08] MEDS ORDERED: PYRI50TA6 PO (15:05)
== END 2020-11-08 15:15 | disposition home or self-care (01) ==
LOC: ER 11:10
DX: R11.15 Cyclical vomiting syndrome unrelated to migraine (principal); Z33.1 Pregnant state, incidental; F17.210 Nicotine dependence, cigarettes, uncomplicated; Z88.8 Allergy status to other drugs, medicaments and biological substances
CPT/HCPCS: 36415; 80053; 81001; 83690; 84702; 85025; 96361; 96374; 99285; J2405; J7030

== ENCOUNTER 2020-11-10 01:58 | Emergency (ER) | payer OTHER ==
[~2020-11-10] VITALS: Ht 152.4 cm; Wt 57.7 kg
[~2020-11-10 01:58] MED LIST changes: +PYRI50TA6 PO
[2020-11-10] MEDS ORDERED: diphenhydrAMINE 50 MG/ML VIAL IVP ONE (02:30)
[2020-11-10] MEDS ORDERED: METOCLOPRAMIDE HCL 10 MG/2 ML VIAL. IVP ONE (02:30)
[2020-11-10] MEDS ORDERED: FAMOTIDINE 20 MG/2 ML VIAL IVP ONE (02:30)
[2020-11-10] MEDS ORDERED: IV NORMAL SALINE 1,000ML 1,000 ML IV SCH (02:30)
[2020-11-10 03:07] LABS: BASO % 1 % (0-3); EOS # 0.1 x10^3/uL (0.0-0.7); EOS % 1 % (0-3); HEMATOCRIT 48.5 % (36.0-47.0); HEMOGLOBIN 16.2 g/dL (12.0-15.5); LYMPH # 2.9 x10^3/uL (1.0-4.8); LYMPH % 38 % (24-48); MEAN CORPUSCULAR HEMOGLOBIN 33 pg (25-35); MEAN CORPUSCULAR HGB CONC 33 g/dL (31-37); MEAN CORPUSCULAR VOLUME 99 fL (79-100); MONO # 0.6 x10^3/uL (0.0-1.1); MONO % 8 % (0-9); NEUT % 53 % (31-73); PLATELET COUNT 225 x10^3/uL (140-400); RED BLOOD COUNT 4.89 x10^6/uL (3.50-5.40); RED CELL DISTRIBUTION WIDTH 14.8 % (11.5-14.5); WHITE BLOOD COUNT 7.6 x10^3/uL (4.0-11.0)
[2020-11-10 03:17] LABS: CALCIUM 9.1 mg/dL (8.5-10.1); GFR 78.2; POTASSIUM 3.3 mmol/L (3.5-5.1)
[2020-11-10 03:22] LABS: ALBUMIN 4.1 g/dL (3.4-5.0); ALBUMIN/GLOBULIN RATIO 1.1 (1.0-1.7); TOTAL PROTEIN 7.9 g/dL (6.4-8.2)
[2020-11-10] MEDS ORDERED: FAMO-63 PO (03:54)
[2020-11-10] MEDS ORDERED: PROM25SU33 RC (03:54)
--- NOTE | 2020-11-10 03:55 | PHYS DOC ---
Past History Past Medical History: Anxiety, Constipation, Fibromyalgia, IBS, Other Additional Past Medical Histor: HYPEREMESIS, DRUG INDUSED CYCLIC VOMITING Past Surgical History: Cholecystectomy, Additional Past Surgical Histo: exploratory laparoscopy Smoking: Cigarettes, Less than 1pk/day Alcohol Use: Occasionally Drug Use: Marijuana General Adult EDM: Chief Complaint: FATIGUE HPI: HPI: Patient is a [age] year old [sex] who presents with [] Review of Systems: Review of Systems: Constitutional: Denies fever or chills Eyes: Denies change in visual acuity HENT: Denies nasal congestion or sore throat Respiratory: Denies cough or shortness of breath Cardiovascular: Denies chest pain or edema GI: Denies abdominal pain, nausea, vomiting, bloody stools or diarrhea : Denies dysuria Musculoskeletal: Denies back pain or joint pain Integument: Denies rash Neurologic: Denies headache, focal weakness or sensory changes Endocrine: Denies polyuria or polydipsia Lymphatic: Denies swollen glands Psychiatric: Denies depression or anxiety Current Medications: Current Meds: Current Medications Medications (Trade) Dose Ordered Sig/Geni Start Time Stop Time Status Last Admin Dose Admin Diphenhydramine HCl (Benadryl) 25 mg 1X ONCE 11/10/20 02:30 11/10/20 02:31 DC 11/10/20 02:58 25 MG Famotidine (Pepcid Vial) 20 mg 1X ONCE 11/10/20 02:30 11/10/20 02:31 DC 11/10/20 02:58 20 MG Metoclopramide HCl (Reglan Vial) 10 mg 1X ONCE 11/10/20 02:30 11/10/20 02:31 DC 11/10/20 02:59 10 MG Potassium Chloride (Klor-Con) 40 meq 1X ONCE 11/10/20 03:45 11/10/20 03:46 UNV Sodium Chloride 1,000 ml @ 1,000 mls/hr 1X ONCE 11/10/20 03:45 11/10/20 04:44 UNV Allergies: Allergies: Allergies Coded Allergies Type Severity Reaction Last Updated Verified haloperidol Allergy Unknown 12/24/19 Yes Physical Exam: PE: Constitutional: Well developed, well nourished, no acute distress, non-toxic appearance. [] HENT: Normocephalic, atraumatic, bilateral external ears normal, oropharynx mois t, no oral exudates, nose normal. [] Eyes: PERRLA, EOMI, conjunctiva normal, no discharge. [] Neck: Normal range of motion, no tenderness, supple, no stridor. [] Cardiovascular:Heart rate regular rhythm, no murmur [] Lungs & Thorax: Bilateral breath sounds clear to auscultation [] Abdomen: Bowel sounds normal, soft, no tenderness, no masses, no pulsatile masses. [] Skin: Warm, dry, no erythema, no rash. [] Back: No tenderness, no CVA tenderness. [] Extremities: No tenderness, no cyanosis, no clubbing, ROM intact, no edema. [] Neurologic: Alert and oriented X 3, normal motor function, normal sensory function, no focal deficits noted. [] Psychologic: Affect normal, judgement normal, mood normal. [] Current Patient Data: Labs: Laboratory Tests Test 11/10/20 02:50 White Blood Count 7.6 x10^3/uL (4.0-11.0) Red Blood Count 4.89 x10^6/uL (3.50-5.40) Hemoglobin 16.2 g/dL (12.0-15.5) H Hematocrit 48.5 % (36.0-47.0) H Mean Corpuscular Volume 99 fL (79-100) Mean Corpuscular Hemoglobin 33 pg (25-35) Mean Corpuscular Hemoglobin Concent 33 g/dL (31-37) Red Cell Distribution Width 14.8 % (11.5-14.5) H Platelet Count 225 x10^3/uL (140-400) Neutrophils (%) (Auto) 53 % (31-73) Lymphocytes (%) (Auto) 38 % (24-48) Monocytes (%) (Auto) 8 % (0-9) Eosinophils (%) (Auto) 1 % (0-3) Basophils (%) (Auto) 1 % (0-3) Neutrophils # (Auto) 4.0 x10^3uL (1.8-7.7) Lymphocytes # (Auto) 2.9 x10^3/uL (1.0-4.8) Monocytes # (Auto) 0.6 x10^3/uL (0.0-1.1) Eosinophils # (Auto) 0.1 x10^3/uL (0.0-0.7) Basophils # (Auto) 0.0 x10^3/uL (0.0-0.2) Sodium Level 134 mmol/L (136-145) L Potassium Level 3.3 mmol/L (3.5-5.1) L Chloride Level 98 mmol/L (98-107) Carbon Dioxide Level 23 mmol/L (21-32) Anion Gap 13 (6-14) Blood Urea Nitrogen 11 mg/dL (7-20) Creatinine 1.0 mg/dL (0.6-1.0) Estimated GFR (Cockcroft-Gault) 78.2 BUN/Creatinine Ratio 11 (6-20) Glucose Level 182 mg/dL (70-99) H Calcium Level 9.1 mg/dL (8.5-10.1) Magnesium Level 2.0 mg/dL (1.8-2.4) Total Bilirubin 1.0 mg/dL (0.2-1.0) Aspartate Amino Transferase (AST) 16 U/L (15-37) Alanine Aminotransferase (ALT) 27 U/L (14-59) Alkaline Phosphatase 73 U/L (46-116) Total Protein 7.9 g/dL (6.4-8.2) Albumin 4.1 g/dL (3.4-5.0) Albumin/Globulin Ratio 1.1 (1.0-1.7) Lipase 199 U/L (73-393) Vital Signs: Vital Signs Date Time Temp Pulse Resp B/P (MAP) Pulse Ox O2 Delivery O2 Flow Rate FiO2 11/10/20 01:58 98.2 108 18 131/97 (108) 100 Room Air EKG: EKG: [] Radiology/Procedures: Radiology/Procedures: [] Heart Score: Risk Factors: Risk Factors: DM, Current or recent (<one month) smoker, HTN, HLP, family history of CAD, obesity. Risk Scores: Score 0 - 3: 2.5% MACE over next 6 weeks - Discharge Home Score 4 - 6: 20.3% MACE over next 6 weeks - Admit for Clinical Observation Score 7 - 10: 72.7% MACE over next 6 weeks - Early Invasive Strategies Course & Med Decision Making: Course & Med Decision Making Pertinent Labs and Imaging studies reviewed. (See chart for details) [] Dragon Disclaimer: Dragon Disclaimer: This electronic medical record was generated, in whole or in part, using a voice recognition dictation system. Departure Departure: Impression: Primary Impression: Cyclic vomiting syndrome Additional Impression: Qualified Codes: Z3A.01 - Less than 8 weeks gestation of Disposition: DC HOME SELF CARE/HOMELESS Condition: IMPROVED Referrals: PCPDELFINO (PCP) SANJIV CASTRO MD Patient Instructions: ABCs of , Cyclic Vomiting Syndrome Scripts Promethazine Hcl (PROMETHAZINE HCL) 25 Mg Supp.rect 25 MG RC Q6HRS PRN for NAUSEA, #14 SUPP.RECT Prov: RUBÉN WALL DO 11/10/20 Famotidine (PEPCID) 20 Mg Tablet 1 TAB PO BID for Gastritis, #30 TAB Prov: RUBÉN WALL DO 11/10/20 RUBÉN WALL DO Nov 10, 2020 03:55
[2020-11-10] MEDS ORDERED: POTASSIUM CHLORIDE 20 MEQ TABLET.ER. PO ONE (04:15)
[2020-11-10] MEDS ORDERED: IV NORMAL SALINE 1,000ML 1,000 ML IV ONE (04:15)
[2020-11-10 05:18] VITALS: BP 130/76
== END 2020-11-10 05:28 | disposition home or self-care (01) ==
LOC: ER 01:58
DX: O26.891 Other specified pregnancy related conditions, first trimester (principal); R11.15 Cyclical vomiting syndrome unrelated to migraine; Z3A.01 Less than 8 weeks gestation of pregnancy
CPT/HCPCS: 36415; 80053; 83690; 83735; 84702; 85025; 96361; 96374; 96375; 99284; J1200; J2765; J3490; J7030

== ENCOUNTER 2020-11-15 22:30 | Emergency (ER) | payer OTHER ==
[~2020-11-15] VITALS: Ht 152.4 cm; Wt 57.7 kg
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
[2020-11-15] MEDS ORDERED: ONDANSETRON PF 4 MG/2 ML VIAL. ONE (22:47)
[2020-11-15] MEDS ORDERED: ONDANSETRON PF 4 MG/2 ML VIAL. IVP ONE (23:00)
[2020-11-15] MEDS ORDERED: IV RINGERS SOLUTION,LACTATED 1,000 ML IV SCH (23:00)
[2020-11-15] MEDS ORDERED: FAMOTIDINE 20 MG/2 ML VIAL IVP ONE (23:00)
[2020-11-15 23:20] LABS: BASO # 0.1 x10^3/uL (0.0-0.2); BASO % 1 % (0-3); EOS % 0 % (0-3); HEMATOCRIT 45.4 % (36.0-47.0); HEMOGLOBIN 15.2 g/dL (12.0-15.5); LYMPH # 1.7 x10^3/uL (1.0-4.8); LYMPH % 10 % (24-48); MEAN CORPUSCULAR HEMOGLOBIN 33 pg (25-35); MEAN CORPUSCULAR HGB CONC 33 g/dL (31-37); MEAN CORPUSCULAR VOLUME 99 fL (79-100); MONO % 6 % (0-9); NEUT # 14.1 x10^3uL (1.8-7.7); NEUT % 84 % (31-73); PLATELET COUNT 352 x10^3/uL (140-400); RED BLOOD COUNT 4.59 x10^6/uL (3.50-5.40); RED CELL DISTRIBUTION WIDTH 15.2 % (11.5-14.5); WHITE BLOOD COUNT 16.8 x10^3/uL (4.0-11.0)
[2020-11-15] MEDS ORDERED: METOCLOPRAMIDE HCL 10 MG/2 ML VIAL. IVP ONE (23:30)
[2020-11-15] MEDS ORDERED: diphenhydrAMINE 50 MG/ML VIAL IVP ONE (23:30)
[2020-11-15 23:31] LABS: CREATININE 1.3 mg/dL (0.6-1.0); GFR 57.4; POTASSIUM 3.7 mmol/L (3.5-5.1)
[2020-11-15 23:35] LABS: % BANDS 1 % (0-9); % LYMPHS 15 % (24-48); % MONOS 4 % (0-10); % SEGS 80 % (35-66); PLT ESTIMATE ADEQUATE (ADEQUATE)
[2020-11-15 23:38] LABS: ALBUMIN 4.7 g/dL (3.4-5.0); DIRECT BILIRUBIN 0.1 mg/dL (0.0-0.2); TOTAL BILIRUBIN 0.2 mg/dL (0.2-1.0); TOTAL PROTEIN 8.6 g/dL (6.4-8.2)
--- NOTE | 2020-11-15 23:40 | EKG ---
[address] [address] Test Date: 2020-11-15 Test Time: 23:31:04 Pat Name: DANDY LEVY Department: Room: Gender: F Cadmium Plater: : 1990 Requested By: DONN PRAJAPATI Order Number: [id number] Reading MD: Measurements Intervals [place] Rate: 135 P: 64 MT: 136 QRS: 65 QRSD: 74 T: 34 QT: 280 QTc: 424 Interpretive Statements SINUS TACHYCARDIA OTHERWISE NORMAL ECG RI6.02 No previous ECG available for comparison
[2020-11-16] MEDS ORDERED: IV RINGERS SOLUTION,LACTATED 1,000 ML IV ONE (00:30)
[2020-11-16] MEDS ORDERED: MAGNESIUM SULFATE 2GM 50 ML IV ONE (00:45)
[2020-11-16] MEDS ORDERED: LABETALOL 20 MG/4 ML DISP.SYRIN. IVP ONE (01:45)
--- NOTE | 2020-11-16 02:17 | RAD ---
Transvaginal obstetric ultrasound less than 14 weeks HISTORY: female with pelvic pain. FINDINGS: Anteverted uterus measures 9.5 x 6.0 x 5.3 cm. Endometrium thickness 2.0 cm. The posterior uterus there is a 2 cm intramural hypoechoic mass is likely a leiomyoma. Sign Painter Helper indicates there are additionally uterine masses although these are not measured or annotated by the comic book designer, pre sumably additional leiomyomas. Cervix is normal, has a length of the saved image of 3 cm, no shorteni ng or funneling evident. Small volume of simple free fluid at cul-de-sac. Within the right fundal end ometrium there is a cystic focus may represent early gestational sac which measures 0.4 cm with estim ated sonographic gestational age of 5 weeks 1 day, no pole or yolk sac evident. Left ovary measures 3.2 x 1.9 x 2.1 cm with a intraovarian 1.5 cm hypoechoic thick-walled cystic focu s may be a corpus luteum or a collapsing cyst. Right ovary measures 2.9 x 1.9 x 1.7 cm with a 1.9 cm thick walled hypoechoic cystic lesion along its periphery although appears to be intraovarian rather than paraovarian may be a corpus luteum or collapsing cyst, this appears to be intraovarian rather th an paraovarian making an ectopic much less likely. Intact bilateral ovarian blood flow. IMPRESSION: 1. 5 mm cystic focus within the right fundal endometrium could be an early gestational sac although n o pole or yolk sac is evident at this time with an estimated sonographic gestational age of 5 w eeks 1 day. Consider clinical follow-up in one week to document development of the fetus. 2. Right ovarian 1.9 cm and left ovarian 1.5 cm hypoechoic thick walled cysts which could be corpus l uteum or ruptured collapsing cysts. 3. Small volume of free fluid at cul-de-sac. 4. Uterine myometrial masses typical of leiomyomas. Electronically signed by: Vipul Yuen MD (11/16/2020 2:14 AM) [facility]
[2020-11-16] MEDS ORDERED: IV NORMAL SALINE 50ML 50 ML ONE (02:18)
[2020-11-16] MEDS ORDERED: cefTRIAXone SODIUM 1 GM VIAL ONE (02:18)
[2020-11-16 02:27] LABS: BACTERIA,URINE 0 /HPF (0-FEW); BILIRUBIN,URINE NEG (NEG); CLARITY,URINE HAZY; COLOR,URINE YELLOW; GLUCOSE,URINE NEG (NEG); NITRITE,URINE NEG (NEG); RBC,URINE 0 /HPF (0-2); UROBILINOGEN,URINE 0.2 mg/dL (0.2 mg/dL); WBC,URINE RARE /HPF (0-4)
[2020-11-16 02:28] LABS: HYALINE CASTS, URINE FEW /HPF; SQUAMOUS EPITHELIAL CELL,UR MOD /LPF
[2020-11-16 02:30] LABS: BARBITURATES NEG (NEG); BENZODIAZEPINES NEG (NEG); CANNABINOIDS POS (NEG); COCAINE NEG (NEG); METHADONE NEG (NEG); OPIATES NEG (NEG); PHENCYCLIDINE NEG (NEG)
[2020-11-16 02:32] LABS: AMPHETAMINE/METHAMPHETAMINE NEG (NEG)
[2020-11-16 03:06] VITALS: BP 125/85
[2020-11-16 03:43] LABS: INFLUENZA A PATIENT NEGATIVE (NEGATIVE); INFLUENZA B PATIENT NEGATIVE (NEGATIVE)
== END 2020-11-16 03:24 | disposition short-term general hospital (02) ==
LOC: ER 22:30
DX: O21.0 Mild hyperemesis gravidarum (principal); O16.1 Unspecified maternal hypertension, first trimester; O99.111 Other diseases of the blood and blood-forming organs and certain disorders involving the immune mechanism complicating pregnancy, first trimester; O99.281 Endocrine, nutritional and metabolic diseases complicating pregnancy, first trimester; O14.90 Unspecified pre-eclampsia, unspecified trimester; O99.331 Smoking (tobacco) complicating pregnancy, first trimester; O99.321 Drug use complicating pregnancy, first trimester; O24.911 Unspecified diabetes mellitus in pregnancy, first trimester; E86.0 Dehydration; R79.89 Other specified abnormal findings of blood chemistry; R74.8 Abnormal levels of other serum enzymes; F12.10 Cannabis abuse, uncomplicated; M79.7 Fibromyalgia; Z20.822 Contact with and (suspected) exposure to COVID-19; Z3A.01 Less than 8 weeks gestation of pregnancy
CPT/HCPCS: 36415; 76801; 80048; 80076; 80307; 81001; 82150; 82550; 83690; 83735; 84484; 84702; 85007; 85025; 86850; 86900; 86901; 87804; 93005; 96361; 96365; 96368; 96375; 99285; C9803; J0696; J1200; J2405; J3475; J3490; J7120; U0003

== ENCOUNTER 2020-11-21 22:07 | Emergency (ER) | payer OTHER ==
[~2020-11-21] VITALS: Ht 152.4 cm; Wt 62.8 kg
[2020-11-21 22:15] VITALS: BP 112/54
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
[2020-11-21] MEDS ORDERED: OXYC1TAB15 PO (23:23)
[2020-11-21] MEDS ORDERED: ONDA4TAB7 PO (23:25)
[2020-11-21] MEDS ORDERED: oxyCODONE/APAP 5/325 1 TAB TABLET PO ONE (23:30)
[2020-11-21] MEDS ORDERED: ONDANSETRON ODT 4 MG TAB.RAPDIS PO ONE (23:30)
[2020-11-21 23:58] LABS: BARBITURATES NEG (NEG); BENZODIAZEPINES NEG (NEG); CANNABINOIDS POS (NEG); COCAINE NEG (NEG); METHADONE NEG (NEG); OPIATES NEG (NEG); PHENCYCLIDINE NEG (NEG)
[2020-11-21 23:59] LABS: AMPHETAMINE/METHAMPHETAMINE NEG (NEG)
[2020-11-22 00:07] LABS: BACTERIA,URINE 0 /HPF (0-FEW); BILIRUBIN,URINE NEG (NEG); CLARITY,URINE CLEAR; COLOR,URINE YELLOW; GLUCOSE,URINE NEG (NEG); NITRITE,URINE NEG (NEG); RBC,URINE 0 /HPF (0-2); SQUAMOUS EPITHELIAL CELL,UR FEW /LPF; UROBILINOGEN,URINE 0.2 mg/dL (0.2 mg/dL); WBC,URINE OCC /HPF (0-4)
== END 2020-11-22 00:34 | disposition home or self-care (01) ==
LOC: ER 22:07
DX: O9A.211 Injury, poisoning and certain other consequences of external causes complicating pregnancy, first trimester (principal); M54.5 Low back pain; M53.3 Sacrococcygeal disorders, not elsewhere classified; O24.911 Unspecified diabetes mellitus in pregnancy, first trimester; O16.1 Unspecified maternal hypertension, first trimester; O99.331 Smoking (tobacco) complicating pregnancy, first trimester; Z3A.00 Weeks of gestation of pregnancy not specified; Z88.8 Allergy status to other drugs, medicaments and biological substances; V89.2XXA Person injured in unspecified motor-vehicle accident, traffic, initial encounter; Y93.89 Activity, other specified; Y92.89 Other specified places as the place of occurrence of the external cause; Y99.8 Other external cause status
CPT/HCPCS: 36415; 80307; 81001; 81025; 99283; Q0162

== ENCOUNTER 2020-12-05 12:09 | Emergency (ER) | payer OTHER ==
[~2020-12-05] VITALS: Ht 152.4 cm; Wt 60.0 kg
[~2020-12-05 12:09] MED LIST changes: +OXYC1TAB15 PO
[2020-12-05 12:29] VITALS: BP 168/94
[2020-12-05] MEDS ORDERED: ACETAMINOPHEN 650 MG SUPP.RECT. PR ONE (12:45)
[2020-12-05] MEDS ORDERED: FAMOTIDINE 20 MG/2 ML VIAL IVP ONE (12:45)
[2020-12-05] MEDS ORDERED: ONDANSETRON PF 4 MG/2 ML VIAL. IVP ONE (12:45)
[2020-12-05] MEDS ORDERED: IV NORMAL SALINE 1,000ML 1,000 ML IV ONE (12:45)
[2020-12-05] MEDS ORDERED: ONDANSETRON ODT 4 MG TAB.RAPDIS PO ONE (14:00)
[2020-12-05] MEDS ORDERED: FAMOTIDINE 20 MG TABLET PO ONE (14:00)
[2020-12-05] MEDS ORDERED: METOCLOPRAMIDE HCL 10 MG/2 ML VIAL. IM ONE (15:00)
[2020-12-05 15:01] LABS: BASO % 0 % (0-3); EOS % 0 % (0-3); HEMATOCRIT 38.6 % (36.0-47.0); HEMOGLOBIN 12.9 g/dL (12.0-15.5); LYMPH # 0.9 x10^3/uL (1.0-4.8); LYMPH % 8 % (24-48); MEAN CORPUSCULAR HEMOGLOBIN 33 pg (25-35); MEAN CORPUSCULAR HGB CONC 33 g/dL (31-37); MEAN CORPUSCULAR VOLUME 100 fL (79-100); MONO # 0.2 x10^3/uL (0.0-1.1); MONO % 2 % (0-9); NEUT # 9.4 x10^3uL (1.8-7.7); NEUT % 89 % (31-73); PLATELET COUNT 293 x10^3/uL (140-400); RED BLOOD COUNT 3.88 x10^6/uL (3.50-5.40); RED CELL DISTRIBUTION WIDTH 14.3 % (11.5-14.5); WHITE BLOOD COUNT 10.6 x10^3/uL (4.0-11.0)
[2020-12-05 15:04] LABS: CALCIUM 8.8 mg/dL (8.5-10.1); CREATININE 0.5 mg/dL (0.6-1.0); POTASSIUM 3.5 mmol/L (3.5-5.1)
[2020-12-05 15:12] LABS: ALBUMIN 3.7 g/dL (3.4-5.0); ALBUMIN/GLOBULIN RATIO 1.1 (1.0-1.7); TOTAL BILIRUBIN 0.2 mg/dL (0.2-1.0); TOTAL PROTEIN 7.2 g/dL (6.4-8.2)
[2020-12-05] MEDS ORDERED: ONDA4TAB12 PO (15:45)
[2020-12-05] MEDS ORDERED: PROM25SU33 RC (15:45)
--- NOTE | 2020-12-05 15:45 | PHYS DOC ---
Past History Past Medical History: Anxiety, Constipation, Diabetes, Fibromyalgia, Hypertension, IBS, Ovarian Cyst, Other Additional Past Medical Histor: HYPEREMESIS, DRUG INDUSED CYCLIC VOMITING,eclam psia(a couple times) Past Surgical History: Cholecystectomy, Additional Past Surgical Histo: exploratory laparoscopy Smoking: Cigarettes, Less than 1pk/day Alcohol Use: None Drug Use: Marijuana General Adult EDM: Chief Complaint: VOMITING IN HPI: HPI: Patient is a [age] year old [sex] who presents with [] Review of Systems: Review of Systems: Constitutional: Denies fever or chills Eyes: Denies change in visual acuity HENT: Denies nasal congestion or sore throat Respiratory: Denies cough or shortness of breath Cardiovascular: Denies chest pain or edema GI: Denies abdominal pain, nausea, vomiting, bloody stools or diarrhea : Denies dysuria Musculoskeletal: Denies back pain or joint pain Integument: Denies rash Neurologic: Denies headache, focal weakness or sensory changes Endocrine: Denies polyuria or polydipsia Lymphatic: Denies swollen glands Psychiatric: Denies depression or anxiety Current Medications: Current Meds: Current Medications Medications (Trade) Dose Ordered Sig/Geni Start Time Stop Time Status Last Admin Dose Admin Acetaminophen (Tylenol Supp) 650 mg 1X ONCE 12/05/20 12:45 12/05/20 12:46 DC Famotidine (Pepcid Vial) 20 mg 1X ONCE 12/05/20 12:45 12/05/20 13:55 DC Famotidine (Pepcid) 20 mg 1X ONCE 12/05/20 14:00 12/05/20 14:01 DC Metoclopramide HCl (Reglan Vial) 10 mg 1X ONCE 12/05/20 15:00 12/05/20 15:02 DC 12/05/20 15:24 10 MG Ondansetron HCl (Zofran Odt) 4 mg 1X ONCE 12/05/20 14:00 12/05/20 14:01 DC 12/05/20 14:03 4 MG Ondansetron HCl (Zofran) 4 mg 1X ONCE 12/05/20 12:45 12/05/20 13:55 DC Sodium Chloride 1,000 ml @ 1,000 mls/hr 1X ONCE 12/05/20 12:45 12/05/20 13:55 DC Allergies: Allergies: Allergies Coded Allergies Type Severity Reaction Last Updated Verified haloperidol Allergy Unknown 12/05/20 Yes Physical Exam: PE: Constitutional: Well developed, well nourished, no acute distress, non-toxic appearance. [] HENT: Normocephalic, atraumatic, bilateral external ears normal, oropharynx moist, no oral exudates, nose normal. [] Eyes: PERRLA, EOMI, conjunctiva normal, no discharge. [] Neck: Normal range of motion, no tenderness, supple, no stridor. [] Cardiovascular:Heart rate regular rhythm, no murmur [] Lungs & Thorax: Bilateral breath sounds clear to auscultation [] Abdomen: Bowel sounds normal, soft, no tenderness, no masses, no pulsatile masses. [] Skin: Warm, dry, no erythema, no rash. [] Back: No tenderness, no CVA tenderness. [] Extremities: No tenderness, no cyanosis, no clubbing, ROM intact, no edema. [] Neurologic: Alert and oriented X 3, normal motor function, normal sensory function, no focal deficits noted. [] Psychologic: Affect normal, judgement normal, mood normal. [] Current Patient Data: Labs: Laboratory Tests Test 12/05/20 14:12 12/05/20 14:36 Glucose (Fingerstick) 130 mg/dL (70-99) H White Blood Count 10.6 x10^3/uL (4.0-11.0) Red Blood Count 3.88 x10^6/uL (3.50-5.40) Hemoglobin 12.9 g/dL (12.0-15.5) Hematocrit 38.6 % (36.0-47.0) Mean Corpuscular Volume 100 fL (79-100) Mean Corpuscular Hemoglobin 33 pg (25-35) Mean Corpuscular Hemoglobin Concent 33 g/dL (31-37) Red Cell Distribution Width 14.3 % (11.5-14.5) Platelet Count 293 x10^3/uL (140-400) Neutrophils (%) (Auto) 89 % (31-73) H Lymphocytes (%) (Auto) 8 % (24-48) L Monocytes (%) (Auto) 2 % (0-9) Eosinophils (%) (Auto) 0 % (0-3) Basophils (%) (Auto) 0 % (0-3) Neutrophils # (Auto) 9.4 x10^3uL (1.8-7.7) H Lymphocytes # (Auto) 0.9 x10^3/uL (1.0-4.8) L Monocytes # (Auto) 0.2 x10^3/uL (0.0-1.1) Eosinophils # (Auto) 0.0 x10^3/uL (0.0-0.7) Basophils # (Auto) 0.0 x10^3/uL (0.0-0.2) Maternal Serum HCG Beta Subunit 369481 mIU/mL (0-6) H Sodium Level 137 mmol/L (136-145) Potassium Level 3.5 mmol/L (3.5-5.1) Chloride Level 102 mmol/L (98-107) Carbon Dioxide Level 24 mmol/L (21-32) Anion Gap 11 (6-14) Blood Urea Nitrogen 6 mg/dL (7-20) L Creatinine 0.5 mg/dL (0.6-1.0) L Estimated GFR (Cockcroft-Gault) 173.0 BUN/Creatinine Ratio 12 (6-20) Glucose Level 126 mg/dL (70-99) H Calcium Level 8.8 mg/dL (8.5-10.1) Total Bilirubin 0.2 mg/dL (0.2-1.0) Aspartate Amino Transferase (AST) 12 U/L (15-37) L Alanine Aminotransferase (ALT) 20 U/L (14-59) Alkaline Phosphatase 64 U/L (46-116) Total Protein 7.2 g/dL (6.4-8.2) Albumin 3.7 g/dL (3.4-5.0) Albumin/Globulin Ratio 1.1 (1.0-1.7) Lipase 62 U/L (73-393) L Vital Signs: Vital Signs Date Time Temp Pulse Resp B/P (MAP) Pulse Ox O2 Delivery O2 Flow Rate FiO2 12/05/20 12:29 97.1 106 22 168/94 (118) 100 EKG: EKG: [] Radiology/Procedures: Radiology/Procedures: [] Heart Score: Risk Factors: Risk Factors: DM, Current or recent (<one month) smoker, HTN, HLP, family history of CAD, obesity. Risk Scores: Score 0 - 3: 2.5% MACE over next 6 weeks - Discharge Home Score 4 - 6: 20.3% MACE over next 6 weeks - Admit for Clinical Observation Score 7 - 10: 72.7% MACE over next 6 weeks - Early Invasive Strategies Course & Med Decision Making: Course & Med Decision Making Pertinent Labs and Imaging studies reviewed. (See chart for details) [] Dragon Disclaimer: Dragon Disclaimer: This electronic medical record was generated, in whole or in part, using a voice recognition dictation system. Departure Departure: Impression: Primary Impression: Cyclic vomiting syndrome Additional Impressions: Qualified Codes: Z34.90 - Encounter for supervision of normal , unspecified, unspecified trimester Left against medical advice Disposition: 07 AMA/ELOPED/LWBS Condition: GUARDED Referrals: PCP,DELFINO (PCP) Patient Instructions: ABCs of , Cyclic Vomiting Syndrome, Discharge Against Medical Advice Scripts Promethazine Hcl (PROMETHAZINE HCL) 25 Mg Supp.rect 25 MG RC Q8HRS PRN for NAUSEA, #10 SUPP.RECT Prov: RUBÉN WALL DO 12/05/20 Ondansetron (ONDANSETRON ODT) 4 Mg Tab.rapdis 1 TAB PO PRN Q6-8HRS PRN for NAUSEA, #16 TAB Prov: RUBÉN WALL DO 12/05/20 RUBÉN WALL DO Dec 05, 2020 15:45
== END 2020-12-05 15:50 | disposition left against medical advice (07) ==
LOC: ER 12:09
DX: O21.8 Other vomiting complicating pregnancy (principal); O24.911 Unspecified diabetes mellitus in pregnancy, first trimester; O16.1 Unspecified maternal hypertension, first trimester; O99.331 Smoking (tobacco) complicating pregnancy, first trimester; M79.7 Fibromyalgia; Z3A.00 Weeks of gestation of pregnancy not specified; Z88.8 Allergy status to other drugs, medicaments and biological substances
CPT/HCPCS: 36415; 80053; 82947; 83690; 84702; 85025; 96372; 99283; J2765; Q0162

== ENCOUNTER 2020-12-27 23:51 | Emergency (ER) | payer OTHER ==
[~2020-12-27] VITALS: Ht 152.4 cm; Wt 60.1 kg
[2020-12-28] MEDS ORDERED: METOCLOPRAMIDE HCL 10 MG/2 ML VIAL. IVP ONE (00:30)
[2020-12-28] MEDS ORDERED: diphenhydrAMINE 50 MG/ML VIAL IVP ONE (00:30)
[2020-12-28] MEDS ORDERED: IV RINGERS SOLUTION,LACTATED 1,000 ML IV ONE ×2 (00:30→03:00)
[2020-12-28 01:02] LABS: BASO % 0 % (0-3); EOS % 0 % (0-3); HEMATOCRIT 37.8 % (36.0-47.0); HEMOGLOBIN 12.7 g/dL (12.0-15.5); LYMPH # 1.3 x10^3/uL (1.0-4.8); LYMPH % 13 % (24-48); MEAN CORPUSCULAR HEMOGLOBIN 34 pg (25-35); MEAN CORPUSCULAR HGB CONC 34 g/dL (31-37); MEAN CORPUSCULAR VOLUME 100 fL (79-100); MONO # 0.4 x10^3/uL (0.0-1.1); MONO % 4 % (0-9); NEUT # 8.4 x10^3uL (1.8-7.7); NEUT % 82 % (31-73); PLATELET COUNT 332 x10^3/uL (140-400); RED BLOOD COUNT 3.77 x10^6/uL (3.50-5.40); RED CELL DISTRIBUTION WIDTH 13.8 % (11.5-14.5); WHITE BLOOD COUNT 10.2 x10^3/uL (4.0-11.0)
[2020-12-28 01:10] LABS: CALCIUM 9.1 mg/dL (8.5-10.1); CREATININE 0.6 mg/dL (0.6-1.0); GFR 140.2; POTASSIUM 3.5 mmol/L (3.5-5.1)
[2020-12-28] MEDS ORDERED: chlorproMAZINE IM 50 MG/2 ML AMPUL IM ONE (01:45)
--- NOTE | 2020-12-28 01:53 | PHYS DOC ---
Past History Past Medical History: Anxiety, Constipation, Diabetes, Fibromyalgia, Hypertension, IBS, Ovarian Cyst, Other Additional Past Medical Histor: HYPEREMESIS, DRUG INDUSED CYCLIC VOMITING,eclam psia(a couple times) Past Surgical History: Cholecystectomy, Additional Past Surgical Histo: exploratory laparoscopy Smoking: Cigarettes, Less than 1pk/day Alcohol Use: None Drug Use: Marijuana Adult General Chief Complaint Chief Complaint: NAUSEA/VOMITING/DIARRHEA HPI HPI Patient is a 30-year-old female, G3, P2 at 11 weeks with a past medical history significant for nausea and vomiting in all of her pregnancies who presents with a chief complaint of nausea and vomiting. States she is doing well up until today. States she woke up this morning nauseous, has had several episodes of nonbloody nonbilious emesis. States she has been able to really eat or drink anything today. States she did try her Reglan that she had at home which helped a little bit, but did not allow her to eat and she maintained her nausea over the course of the day. Denies any recent trauma, illnesses, fevers, chest pain, shortness of breath, abdominal pain, cramping. Denies any vaginal bleeding discharge or pain or large gushes of fluid. States she had an ultrasound a few weeks ago that showed an intrauterine and does have an [employer] that she follows with. Review of Systems Review of Systems Review of systems otherwise unremarkable except noted in HPI Current Medications Current Medications Current Medications Medications (Trade) Dose Ordered Sig/Geni Start Time Stop Time Status Last Admin Dose Admin Chlorpromazine HCl (Thorazine Im) 25 mg 1X ONCE 12/28/20 01:45 12/28/20 01:46 UNV Diphenhydramine HCl (Benadryl) 50 mg 1X ONCE 12/28/20 00:30 12/28/20 01:47 DC 12/28/20 00:48 50 MG Lactated Ringer's 1,000 ml @ 1,000 mls/hr 1X ONCE 12/28/20 00:30 12/28/20 01:47 DC 12/28/20 00:48 1,000 MLS/HR Metoclopramide HCl (Reglan Vial) 10 mg 1X ONCE 12/28/20 00:30 12/28/20 01:47 DC 12/28/20 00:48 10 MG Allergies Allergies Allergies Coded Allergies Type Severity Reaction Last Updated Verified haloperidol Allergy Unknown 12/28/20 Yes Physical Exam Physical Exam Constitutional: Well developed, well nourished, no acute distress, non-toxic appearance. [] HENT: Normocephalic, atraumatic, bilateral external ears normal, oropharynx moist, no oral exudates, nose normal. [] Eyes: conjunctiva normal, no discharge. [] Neck: Normal range of motion, no tenderness, supple, no stridor. [] Cardiovascular: Sinus tachycardia Lungs & Thorax: Bilateral breath sounds clear to auscultation [] Abdomen: soft, no tenderness, no masses, uterine fundus felt approximately assisted between umbilicus and pubic symphysis, heart rate approximately 180. [] Skin: Warm, dry, , no rash. [] Extremities: No tenderness, no edema. [] Neurologic: Alert and oriented X 3, no focal deficits noted. [] Psychologic: Affect normal, judgement normal, mood normal. [] Current Patient Data Vital Signs Vital Signs Date Time Temp Pulse Resp B/P (MAP) Pulse Ox O2 Delivery O2 Flow Rate FiO2 12/28/20 00:06 98.5 125 30 169/115 (133) 98 Room Air Lab Results Laboratory Tests Test 12/28/20 00:50 White Blood Count 10.2 x10^3/uL (4.0-11.0) Red Blood Count 3.77 x10^6/uL (3.50-5.40) Hemoglobin 12.7 g/dL (12.0-15.5) Hematocrit 37.8 % (36.0-47.0) Mean Corpuscular Volume 100 fL (79-100) Mean Corpuscular Hemoglobin 34 pg (25-35) Mean Corpuscular Hemoglobin Concent 34 g/dL (31-37) Red Cell Distribution Width 13.8 % (11.5-14.5) Platelet Count 332 x10^3/uL (140-400) Neutrophils (%) (Auto) 82 % (31-73) H Lymphocytes (%) (Auto) 13 % (24-48) L Monocytes (%) (Auto) 4 % (0-9) Eosinophils (%) (Auto) 0 % (0-3) Basophils (%) (Auto) 0 % (0-3) Neutrophils # (Auto) 8.4 x10^3uL (1.8-7.7) H Lymphocytes # (Auto) 1.3 x10^3/uL (1.0-4.8) Monocytes # (Auto) 0.4 x10^3/uL (0.0-1.1) Eosinophils # (Auto) 0.0 x10^3/uL (0.0-0.7) Basophils # (Auto) 0.0 x10^3/uL (0.0-0.2) Sodium Level 136 mmol/L (136-145) Potassium Level 3.5 mmol/L (3.5-5.1) Chloride Level 100 mmol/L (98-107) Carbon Dioxide Level 25 mmol/L (21-32) Anion Gap 11 (6-14) Blood Urea Nitrogen 6 mg/dL (7-20) L Creatinine 0.6 mg/dL (0.6-1.0) Estimated GFR (Cockcroft-Gault) 140.2 Glucose Level 134 mg/dL (70-99) H Calcium Level 9.1 mg/dL (8.5-10.1) Lipase 137 U/L (73-393) EKG EKG [] Radiology/Procedures Radiology/Procedures [] Heart Score C/O Chest Pain: No Risk Factors: Risk Factors: DM, Current or recent (<one month) smoker, HTN, HLP, family history of CAD, obesity. Risk Scores: Risk Factors: DM, Current or recent (<one month) smoker, HTN, HLP, family history of CAD, obesity. Course & Med Decision Making Course & Med Decision Making Patient is a 30-year-old female, G3, P2 at 11 weeks who presents with nausea and vomiting over the course of the day that not alleviated by home Reglan Initial vital signs notable for tachycardia and hypertension. Physical exam noted above. heart tones at 180. Patient placed on the monitor and started on IV fluid resuscitation. Started on Reglan and Benadryl. Laboratory analysis not concerning. Urinalysis notable for proteinuria. On reassessment after initial resuscitation, patient stated she was feeling a little better but was still nauseous and would like something else for nausea and was giving dose of IM Thorazine. Continued on IV fluid resuscitation. On second reassessment, patient was able to sleep, and heart rate down into the 90s with blood pressure 116/66 breathing 14 times a minute on room air saturating 95 to 100%. Patient able to take p.o. soda and chips. Discussed all findings with patient and advised calling [employer] first thing in the morning to discuss ED visit and need for home nausea management medications other than her prescribed Reglan. Also advised her to discuss urinalysis findings and discuss need for repeat. Gave strict return precautions to the emergency department. Patient grateful, verbalized understanding and agreed with plan of discharge. [] Dragon Disclaimer Dragon Disclaimer This electronic medical record was generated, in whole or in part, using a voice recognition dictation system. Departure Departure: Impression: Primary Impression: Hyperemesis gravidarum Additional Impression: Proteinuria affecting Disposition: 01 DC HOME SELF CARE/HOMELESS Condition: GOOD Referrals: PCP,NO (PCP) Patient Instructions: Diet - Hyperemesis Gravidarum, Hyperemesis Gravidarum, Proteinuria Additional Instructions: Please read all of the attached information on your diagnosis today from the emergency department. Upon arriving home please take your Reglan over the next day or 2 to allow proper intake of fluids and nutrition. Please be sure to stay well-hydrated. Please call your [employer] first thing this morning to discuss your ED visit, need for better nausea management than the currently prescribed Reglan and your proteinuria. Please come back to the emergency department immediately with new or concerning symptoms. Problem Qualifiers ROBERT VALDEZ MD Dec 28, 2020 01:53
[2020-12-28 02:24] LABS: BILIRUBIN,URINE NEG (NEG); CLARITY,URINE CLEAR; COLOR,URINE YELLOW; GLUCOSE,URINE NEG (NEG)
[2020-12-28 02:25] LABS: BACTERIA,URINE 0 /HPF (0-FEW); NITRITE,URINE NEG (NEG); RBC,URINE 0 /HPF (0-2); SQUAMOUS EPITHELIAL CELL,UR FEW /LPF; UROBILINOGEN,URINE 0.2 mg/dL (0.2 mg/dL); WBC,URINE OCC /HPF (0-4)
[2020-12-28 02:45] LABS: ALBUMIN 3.7 g/dL (3.4-5.0); DIRECT BILIRUBIN 0.1 mg/dL (0.0-0.2); TOTAL BILIRUBIN 0.3 mg/dL (0.2-1.0); TOTAL PROTEIN 7.3 g/dL (6.4-8.2)
[2020-12-28 03:27] VITALS: BP 107/67
== END 2020-12-28 03:56 | disposition home or self-care (01) ==
LOC: ER 23:51
DX: O21.0 Mild hyperemesis gravidarum (principal); O12.11 Gestational proteinuria, first trimester; M79.7 Fibromyalgia; O16.1 Unspecified maternal hypertension, first trimester; O24.911 Unspecified diabetes mellitus in pregnancy, first trimester; O99.331 Smoking (tobacco) complicating pregnancy, first trimester; Z3A.11 11 weeks gestation of pregnancy; Z88.8 Allergy status to other drugs, medicaments and biological substances
CPT/HCPCS: 36415; 80048; 80076; 81001; 83690; 85025; 96361; 96372; 96374; 96375; 99285; J1200; J2765; J3230; J7120

== ENCOUNTER 2021-01-31 13:29 | Emergency (ER) | payer OTHER ==
[~2021-01-31] VITALS: Ht 152.4 cm; Wt 60.1 kg
[2021-01-31] MEDS ORDERED: ONDANSETRON PF 4 MG/2 ML VIAL. ONE (14:17)
--- NOTE | 2021-01-31 14:26 | PHYS DOC ---
Past History Past Medical History: Anxiety, Constipation, Diabetes, Fibromyalgia, Hypertension, IBS, Ovarian Cyst, Other Additional Past Medical Histor: HYPEREMESIS, DRUG INDUSED CYCLIC VOMITING,eclam psia(a couple times) (CAROLANN GARCÍA APRN) Past Surgical History: Cholecystectomy, Additional Past Surgical Histo: exploratory laparoscopy (CAROLANN GARCÍA APRN) Smoking: Cigarettes, Less than 1pk/day Alcohol Use: None Drug Use: Marijuana (CAROLANN GARCÍA APRN) General Adult EDM: Chief Complaint: ABDOMINAL PAIN IN HPI: HPI: Patient is a 30-year-old female presents with nausea and vomiting in , and lower back pain. Patient has history of cyclic vomiting syndrome. Patient admits to smoking marijuana, but denies smoking in the last 2 weeks. Patient had ultrasound in December. Last menstrual period was October. Denies any fever or chills. Denies vaginal bleeding or discharge. Denies dysuria. (CAROLANN GARCÍA APRN) Review of Systems: Review of Systems: Constitutional: Denies fever or chills Eyes: Denies change in visual acuity HENT: Denies nasal congestion or sore throat Respiratory: Denies cough or shortness of breath Cardiovascular: Denies chest pain or edema GI: Reports abdominal pain and nausea and vomiting. Denies diarrhea. : Denies dysuria Musculoskeletal: Reports lower back pain, denies joint pain Integument: Denies rash Neurologic: Denies headache, focal weakness or sensory changes Endocrine: Denies polyuria or polydipsia Lymphatic: Denies swollen glands Psychiatric: Denies depression or anxiety (CAROLANN GARCÍA APRN) Current Medications: Current Meds: Current Medications Medications (Trade) Dose Ordered Sig/Geni Start Time Stop Time Status Last Admin Dose Admin Ondansetron HCl (Zofran) 4 mg 1X ONCE 01/31/21 14:30 01/31/21 14:31 (CAROLANN GARCÍA APRN) Allergies: Allergies: Allergies Coded Allergies Type Severity Reaction Last Updated Verified haloperidol Allergy Unknown 12/28/20 Yes (CAROLANN GARCÍA APRN) Physical Exam: PE: Constitutional: Well developed, well nourished, no acute distress, non-toxic appearance. [] HENT: bilateral external ears normal, oropharynx moist, no oral exudates, nose normal. [] Eyes: PERRLA, EOMI, conjunctiva normal, no discharge. [] Neck: Normal range of motion, no tenderness, supple, no stridor. [] Cardiovascular:Heart rate regular rhythm, no murmur [] Lungs & Thorax: Bilateral breath sounds clear to auscultation [] Abdomen: Bowel sounds normal, soft, generalized tenderness Skin: Warm, dry, no erythema, no rash. [] Back: Lower back tenderness, no CVA tenderness. [] Extremities: No tenderness, no cyanosis, no clubbing, ROM intact, no edema. [] Neurologic: Alert and oriented X 3, normal motor function, normal sensory function, no focal deficits noted. [] Psychologic: Patient is moaning, anxious, tearful (CAROLANN GARCÍA APRN) Current Patient Data: Vital Signs: Vital Signs Date Time Temp Pulse Resp B/P (MAP) Pulse Ox O2 Delivery O2 Flow Rate FiO2 01/31/21 13:30 98.0 87 22 151/83 (105) 99 Room Air (CAROLANN GARCÍA APRN) EKG: EKG: [] (CAROLANN GARCÍA APRN) Radiology/Procedures: Radiology/Procedures: []EXAM: Abdomen sonogram. HISTORY: Pain. TECHNIQUE: Sonographic imaging of the abdomen was performed. COMPARISON: None. FINDINGS: The liver is normal in size. No focal hepatic lesion is seen. The gallbladder is surgically absent. The common bile duct is mildly dilated for patient age, measuring 6 mm. The pancreas, right kidney, aorta and vena cava are unremarkable. IMPRESSION: 1. Mild common bile duct dilatation for patient age. This is likely due to reservoir effect status post cholecystectomy. 2. Otherwise, unremarkable abdomen sonogram. Electronically signed by: Breana Han MD (01/31/2021 3:10 PM) [id number] (CAROLANN GARCÍA APRN) Heart Score: C/O Chest Pain: No Risk Factors: Risk Factors: DM, Current or recent (<one month) smoker, HTN, HLP, family history of CAD, obesity. Risk Scores: Score 0 - 3: 2.5% MACE over next 6 weeks - Discharge Home Score 4 - 6: 20.3% MACE over next 6 weeks - Admit for Clinical Observation Score 7 - 10: 72.7% MACE over next 6 weeks - Early Invasive Strategies (CAROLANN GARCÍA APRN) Course & Med Decision Making: Course & Med Decision Making Pertinent Labs and Imaging studies reviewed. (See chart for details) [] Patient presents to the emergency room for nausea/vomiting and lower back pain. Patient does have a history of cyclic vomiting, and has been seen previously in the emergency room for same symptoms. Patient does admit to smoking marijuana but denies smoking in the last 2 weeks. Patient is thrashing around in her bed, crying, inconsolable. Patient given Zofran for nausea and Benadryl. Oral hydration given. Ultrasound ordered for generalized abdominal pain. Ultrasound is negative for any acute abnormalities. Patient has calmed down after receiving Benadryl and Zofran for nausea. After reassessing patient, she is still reporting some nausea. Patient was given 4 mg of Zofran, 25 mg of Benadryl. Patient is still moaning, and reporting nausea. Patient was given Reglan. Patient reports that symptoms have improved. Patient's labs are unremarkable along with UA. RN discussed discharge with patient. Patient states "I cannot go home, I will be right back in the emergency room". Patient started complaining of nausea again and thrashing around in the bed. I consulted Dr. Figueroa at [facility]. Dr. Figueroa suggested giving Phenergan and Zofran at home for nausea. Patient is requesting a dose of Phenergan while in the emergency room. I discussed this with patient, who agreed with this plan. Patient directed that she needs to follow-up with an OB to establish care for further management. Transfer of patient care to Dr. Clements. (CAROLANN GARCÍA APRN) Shayne Disclaimer: Shayne Disclaimer: This electronic medical record was generated, in whole or in part, using a voice recognition dictation system. (CAROLANN GARCÍA APRN) Departure Departure: Impression: Primary Impression: Cyclic vomiting syndrome Disposition: HOME / SELF CARE / HOMELESS Condition: STABLE Referrals: PCP,DELFINO (PCP) Patient Instructions: Cyclic Vomiting Syndrome Additional Instructions: You are seen in the emergency room for vomiting during . You were given Zofran, Reglan and Benadryl for symptoms. You reported that your symptoms had resolved. All of your labs were unremarkable along with your urine. Please follow-up with your OB for further management. If you have worsening symptoms or concerns please return to the emergency room. EMERGENCY DEPARTMENT GENERAL DISCHARGE INSTRUCTIONS Thank you for coming to [facility] (ED) today and trusting us with you care. We trust that you had a positivie experience in our Emergency Department. If you wish to speak to the department management, you may call the director at [phone]. YOUR FOLLOW UP INSTRUCTIONS ARE FOLLOWS: 1. Do you have a private Doctor? If you do not have a private doctor, please ask for a resource list of physicians or clinics that may be able to assist you with follow up care. 2. The Emergency Physician has interpreted your x-rays. The X-Ray specialist will also review them. If there is a change in the findings, you will be notified in 48 hours when at all possible. 3. A lab test or culture has been done, your results will be reviewed and you will be notified if you need a change in treatment. ADDITIONAL INSTRUCTIONS AND INFORMATION: 1. Your care today has been supervised by a physician who is specially trained in emergency care. Many problems require more than one evaluation for a complete diagnosis and treatment. We recommend that you schedule your follow up appointment as recommended to ensure complete treatment of you illness or injury. If you are unable to obtain follow up care and continue to have a problem, or if your condition worsens, we recommend that you return to the ED. 2. We are not able to safely determine your condition over the phone nor are we able to give sound medical advice over the phone. For these safety reasons, if you call for medical advice we will ask you to come to the ED for further evaluation. 3. If you have any questions regarding these discharge instructions please call the ED at [phone]. SAFETY INFORMATION: In the interest of safety, wellness, and injury prevention; we encourage you to wear your sealbelt, if you smoke; quite smoking, and we encourage family to use a protective helmet for bicycling and other sporting events that present an increased risk for head injury. IF YOUR SYMPTOMS WORSEN OR NEW SYMPTOMS DEVELOP, OR YOU HAVE CONCERNS ABOUT YOUR CONDITION; OR IF YOUR CONDITION WORSENS WHILE YOU ARE WAITING FOR YOUR FOLLOW UP APPOINTMENT; EITHER CONTACT YOUR PRIMARY CARE DOCTOR, THE PHYSICIAN WHOSE NAME AND NUMBER YOU WERE GIVEN, OR RETURN TO THE ED IMMEDIATELY. Scripts Promethazine Hcl (PROMETHAZINE HCL) 25 Mg Supp.rect 25 MG RC Q8HRS for nausea for 3 Days, #9 SUPP.RECT Prov: CAROLANN GARCÍA APRN 01/31/21 Ondansetron Hcl (ZOFRAN) 4 Mg Tablet 4 MG PO TID PRN PRN for NAUSEA, #9 TAB Prov: CAROLANN GARCÍA APRN 01/31/21 Attending Signature Attending Signature I have participated in the care of this patient and I have reviewed and agree with all pertinent clinical information above including history, exam, and recommendations. (DONN CLEMENTS MD) CAROLANN GARCÍA APRN Jan 31, 2021 14:26 DONN CLEMENTS MD Feb 01, 2021 02:36
[2021-01-31 14:27] LABS: BASO % 0 % (0-3); EOS % 0 % (0-3); HEMATOCRIT 37.5 % (36.0-47.0); HEMOGLOBIN 12.8 g/dL (12.0-15.5); LYMPH # 1.2 x10^3/uL (1.0-4.8); LYMPH % 9 % (24-48); MEAN CORPUSCULAR HEMOGLOBIN 34 pg (25-35); MEAN CORPUSCULAR HGB CONC 34 g/dL (31-37); MEAN CORPUSCULAR VOLUME 100 fL (79-100); MONO # 0.2 x10^3/uL (0.0-1.1); MONO % 1 % (0-9); NEUT # 11.9 x10^3uL (1.8-7.7); NEUT % 90 % (31-73); PLATELET COUNT 318 x10^3/uL (140-400); RED BLOOD COUNT 3.77 x10^6/uL (3.50-5.40); RED CELL DISTRIBUTION WIDTH 13.6 % (11.5-14.5); WHITE BLOOD COUNT 13.2 x10^3/uL (4.0-11.0)
[2021-01-31] MEDS ORDERED: ONDANSETRON PF 4 MG/2 ML VIAL. IVP ONE ×2 (14:30→16:30)
[2021-01-31] MEDS ORDERED: diphenhydrAMINE 50 MG/ML VIAL IVP ONE ×2 (14:30→16:30)
[2021-01-31 14:41] LABS: ALBUMIN 3.5 g/dL (3.4-5.0); ALBUMIN/GLOBULIN RATIO 0.9 (1.0-1.7); CALCIUM 8.9 mg/dL (8.5-10.1); CREATININE 0.6 mg/dL (0.6-1.0); GFR 140.2; POTASSIUM 3.4 mmol/L (3.5-5.1); TOTAL BILIRUBIN 0.3 mg/dL (0.2-1.0); TOTAL PROTEIN 7.5 g/dL (6.4-8.2)
--- NOTE | 2021-01-31 15:12 | RAD ---
EXAM: Abdomen sonogram. HISTORY: Pain. TECHNIQUE: Sonographic imaging of the abdomen was performed. COMPARISON: None. FINDINGS: The liver is normal in size. No focal hepatic lesion is seen. The gallbladder is surgically absent. The common bile duct is mildly dilated for patient age, measuring 6 mm. The pancreas, right kidney, aorta and vena cava are unremarkable. IMPRESSION: 1. Mild common bile duct dilatation for patient age. This is likely due to reservoir effect status po st cholecystectomy. 2. Otherwise, unremarkable abdomen sonogram. Electronically signed by: Breana Han MD (01/31/2021 3:10 PM) [id number]
[2021-01-31] MEDS ORDERED: IV NORMAL SALINE 1,000ML 1,000 ML IV ONE ×3 (15:15→19:00)
[2021-01-31] MEDS ORDERED: METOCLOPRAMIDE HCL 10 MG/2 ML VIAL. IVP ONE (17:00)
[2021-01-31 17:31] LABS: BACTERIA,URINE 0 /HPF (0-FEW); BILIRUBIN,URINE NEG (NEG); CLARITY,URINE CLEAR; COLOR,URINE YELLOW; GLUCOSE,URINE 100 mg/dL (NEG); NITRITE,URINE NEG (NEG); SQUAMOUS EPITHELIAL CELL,UR MOD /LPF; UROBILINOGEN,URINE 0.2 mg/dL (0.2 mg/dL)
[2021-01-31 17:56] VITALS: BP 138/76
[2021-01-31] MEDS ORDERED: ONDA4TAB7 PO (18:33)
[2021-01-31] MEDS ORDERED: PROCHLORPERAZINE 10 MG/2 ML VIAL. IV ONE (19:00)
[2021-01-31] MEDS ORDERED: PROMETHAZINE 25 MG SUPP.RECT. PR ONE (20:15)
[2021-01-31] MEDS ORDERED: PROM25SU33 RC (20:15)
== END 2021-01-31 20:47 | disposition home or self-care (01) ==
LOC: ER 13:29
DX: O21.9 Vomiting of pregnancy, unspecified (principal); O24.912 Unspecified diabetes mellitus in pregnancy, second trimester; O16.2 Unspecified maternal hypertension, second trimester; M79.7 Fibromyalgia; O99.332 Smoking (tobacco) complicating pregnancy, second trimester; Z3A.16 16 weeks gestation of pregnancy; Z90.49 Acquired absence of other specified parts of digestive tract; Z98.890 Other specified postprocedural states; Z88.8 Allergy status to other drugs, medicaments and biological substances
CPT/HCPCS: 36415; 76705; 80053; 81001; 83690; 85025; 96361; 96374; 96375; 96376; 99284; J0780; J1200; J2405; J2765; J7030

== ENCOUNTER 2021-03-25 02:32 | Emergency (ER) | payer OTHER ==
[~2021-03-25] VITALS: Ht 152.4 cm; Wt 62.2 kg
--- NOTE | 2021-03-25 02:42 | PHYS DOC ---
Past History Past Medical History: Anxiety, Constipation, Diabetes, Fibromyalgia, Hypertension, IBS, Ovarian Cyst, Other Additional Past Medical Histor: HYPEREMESIS, DRUG INDUSED CYCLIC VOMITING,eclam psia(a couple times) Past Surgical History: Cholecystectomy, Additional Past Surgical Histo: exploratory laparoscopy Smoking: Cigarettes, Less than 1pk/day Alcohol Use: None Drug Use: Marijuana Adult General Chief Complaint Chief Complaint: VOMITING IN HPI HPI Patient is a 30-year-old female at 24 weeks gestation who presents with a chief complaint of nausea and vomiting with associated abdominal cramping during the episodes. States she is had nausea and vomiting frequently during the as well as her 2 previous pregnancies. States that she has some Reglan at home that she tried to use earlier which only provided minimal relief. Denies any recent traumas, travels, fevers, chest pain, shortness of breath, other abdominal pain, dysuria, hematuria, blood in the stool or diarrhea. Denies any vaginal pain, discharge, bleeding or fluid gushes or drips. States this does not feel anything like labor, just nausea and vomiting and cramping when she is throwing up. Denies any alcohol or drug use. States she has an SIMULATION TECH at [facility] and just saw them about 12 days ago for a well check an ultrasound and all was well. Review of Systems Review of Systems Review of systems otherwise unremarkable except noted in HPI Allergies Allergies Allergies Coded Allergies Type Severity Reaction Last Updated Verified haloperidol Allergy Unknown 12/28/20 Yes Physical Exam Physical Exam Constitutional: Well developed, well nourished, no acute distress, non-toxic appearance. [] HENT: Normocephalic, atraumatic, bilateral external ears normal, oropharynx moist, no oral exudates, nose normal. [] Eyes: conjunctiva normal, no discharge. [] Neck: Normal range of motion, no tenderness, supple, no stridor. [] Cardiovascular:Heart rate regular rhythm, no murmur [] Lungs & Thorax: Bilateral breath sounds clear to auscultation [] Abdomen: Gravid, soft, no rebound or guarding. Bedside ultrasound showed live intrauterine with movement, heart rate around 1 60-1 70. FAST exam performed as well with no blood in the abdomen. : Pelvic exam with no blood or fluid in the vaginal vault and closed cervical os with no cervical tenderness. Skin: Warm, dry, no erythema, no rash. [] Back: no CVA tenderness. [] Extremities: No tenderness, ROM intact, no edema. [] Neurologic: Alert and oriented X 3, normal motor function, normal sensory function, no focal deficits noted. [] Psychologic: Anxious EKG EKG [] Radiology/Procedures Radiology/Procedures [] Heart Score C/O Chest Pain: No Risk Factors: Risk Factors: DM, Current or recent (<one month) smoker, HTN, HLP, family history of CAD, obesity. Risk Scores: Risk Factors: DM, Current or recent (<one month) smoker, HTN, HLP, family hist ory of CAD, obesity. Course & Med Decision Making Course & Med Decision Making Patient is a 30-year-old female at 33 weeks gestation who presents for nausea and vomiting, with associated cramping during episodes Initial vital signs during nausea and vomiting notable for hypertension and tachycardia. Patient placed on the monitor. Given Zofran, Reglan, diphenhydramine and fentanyl for nausea/vomiting, anxiolysis and pain. POC ultrasound showed live intrauterine with movement, heart rate between 160 and 170 and no obvious bleeding. Pelvic exam with no blood or fluid in vaginal vault, cervical os was closed and no cervical tenderness. Fast exam with no intra-abdominal fluid. Patient once again complaining of nausea, and asked for Phenergan suppository as she states this works the best for her nausea. CBC notable for leukocytosis to 16. Urinalysis notable for ketonuria, mild proteinuria and bacteria. Patient given Rocephin for asymptomatic bacteriuria during . Patient allowed to rest in the emergency department and finish her lactated Ringer's as well as her Rocephin. Patient stated she felt like after the fluids she could be discharged home. Patient also stated she was thirsty and would like something to drink. Tolerated p.o. soda in the ED. Discharged home with pain, and nausea medicine as well as cephalexin for asymptomatic bacteriuria. Advised patient to call primary care physician and SIMULATION TECH first thing in the morning to update on ED visit and set up a follow-up as soon as possible. Gave strict return precautions to the ED. Patient grateful, verbalized understanding and agreed with plan of discharge. Dragon Disclaimer Dragon Disclaimer This electronic medical record was generated, in whole or in part, using a voice recognition dictation system. Departure Departure: Impression: Primary Impression: Hyperemesis gravidarum Additional Impression: Asymptomatic bacteriuria during Disposition: 02 SHORT TERM HOSPITAL Referrals: PCP,NO (PCP) GALE BARBOSA MD Patient Instructions: Diet - Hyperemesis Gravidarum, Hyperemesis Gravidarum Additional Instructions: Thank you for coming into the emergency department at [facility] and allowing us to take care of you. Please read all of the attached information very carefully. As discussed over the next day or 2 please eat and drink appropriately but stay away from heavy or spicy foods. Please take all your medications as prescribed. You are given a Phenergan prescription for suppositories. Please try to only use one of your antinausea medicines at a time as taking all of these at once can increase your risk of heart problems as discussed call arr hythmias and abnormal electrical impulses. Please call your SIMULATION TECH first thing Friday morning to discuss your ED visit and set up a follow-up as soon as you can. Your bedside ultrasound showed a live intrauterine with movement, heart rate around 165 and no bleeding. Your cervical os was closed. Please discuss this information with your SIMULATION TECH. You can also call your primary care physician to update on your ED visit as they would appreciate the update. Please come back to the emergency department immediately with new or concerning symptoms as discussed. Scripts Acetaminophen With Codeine (ACETAMINOPHEN-COD #4 TABLET) 1 Each Tablet 1 EACH PO BID for ab cramps for 3 Days, #6 TAB Prov: ROBERT VALDEZ MD 03/25/21 Cephalexin (CEPHALEXIN) 500 Mg Capsule 1 CAP PO BID for UTI, #10 CAP Prov: ROBERT VALDEZ MD 03/25/21 Promethazine Hcl (PROMETHAZINE HCL) 12.5 Mg Supp.rect 1 SUPP RC TID for nausea for 3 Days, #9 SUPP 0 Refills Prov: ROBERT VALDEZ MD 03/25/21 Problem Qualifiers ROBERT VALDEZ MD Mar 25, 2021 02:42
[2021-03-25] MEDS ORDERED: ONDANSETRON PF 4 MG/2 ML VIAL. IVP ONE (02:45)
[2021-03-25] MEDS ORDERED: IV RINGERS SOLUTION,LACTATED 1,000 ML IV ONE ×2 (02:45→05:45)
[2021-03-25] MEDS ORDERED: diphenhydrAMINE 50 MG/ML VIAL IVP ONE (02:45)
[2021-03-25] MEDS ORDERED: METOCLOPRAMIDE HCL 10 MG/2 ML VIAL. IVP ONE (02:45)
[2021-03-25] MEDS ORDERED: PROMETHAZINE 12.5 MG SUPP.RECT. PR ONE (04:30)
[2021-03-25] MEDS ORDERED: PROM12.554 RC (04:31)
[2021-03-25] MEDS ORDERED: MAGNESIUM SULFATE 2GM 50 ML IV ONE (05:00)
[2021-03-25] MEDS ORDERED: LABETALOL 20 MG/4 ML DISP.SYRIN. IVP ONE (05:00)
[2021-03-25 05:12] LABS: BACTERIA,URINE FEW /HPF (0-FEW); BILIRUBIN,URINE NEG (NEG); CLARITY,URINE HAZY; COLOR,URINE YELLOW; GLUCOSE,URINE 250 mg/dL (NEG); NITRITE,URINE NEG (NEG); RBC,URINE 0 /HPF (0-2); SQUAMOUS EPITHELIAL CELL,UR FEW /LPF; UROBILINOGEN,URINE 0.2 mg/dL (0.2 mg/dL)
[2021-03-25 05:14] LABS: HEMATOCRIT 36.6 % (36.0-47.0); HEMOGLOBIN 12.2 g/dL (12.0-15.5); RED BLOOD COUNT 3.66 x10^6/uL (3.50-5.40); RED CELL DISTRIBUTION WIDTH 13.5 % (11.5-14.5); WHITE BLOOD COUNT 16.1 x10^3/uL (4.0-11.0)
[2021-03-25 05:23] LABS: CALCIUM 8.6 mg/dL (8.5-10.1); CREATININE 0.7 mg/dL (0.6-1.0); GFR 117.3; POTASSIUM 3.5 mmol/L (3.5-5.1)
[2021-03-25 05:29] LABS: ALBUMIN 3.3 g/dL (3.4-5.0); ALBUMIN/GLOBULIN RATIO 0.8 (1.0-1.7); TOTAL BILIRUBIN 0.3 mg/dL (0.2-1.0); TOTAL PROTEIN 7.5 g/dL (6.4-8.2)
[2021-03-25] MEDS ORDERED: cefTRIAXone SODIUM 1 GM VIAL ONE (05:39)
[2021-03-25] MEDS ORDERED: IV NORMAL SALINE 50ML 50 ML ONE (05:39)
[2021-03-25] MEDS ORDERED: ACET-1871 PO (05:47)
[2021-03-25] MEDS ORDERED: CEPH500C PO (05:47)
[2021-03-25 07:00] VITALS: BP 132/88
== END 2021-03-25 07:25 | disposition home or self-care (01) ==
LOC: ER 02:32
DX: O21.0 Mild hyperemesis gravidarum (principal); O23.92 Unspecified genitourinary tract infection in pregnancy, second trimester; R82.71 Bacteriuria; O24.912 Unspecified diabetes mellitus in pregnancy, second trimester; O16.2 Unspecified maternal hypertension, second trimester; M79.7 Fibromyalgia; O99.332 Smoking (tobacco) complicating pregnancy, second trimester; Z90.89 Acquired absence of other organs; Z98.890 Other specified postprocedural states; Z3A.24 24 weeks gestation of pregnancy; Z88.8 Allergy status to other drugs, medicaments and biological substances
CPT/HCPCS: 36415; 80053; 81001; 85027; 96365; 96372; 96375; 99285; J0696; J1200; J2405; J2765; J3010; J7120

== ENCOUNTER 2021-04-22 10:56 | Emergency (ER) | payer OTHER ==
[~2021-04-22] VITALS: Ht 152.4 cm; Wt 62.2 kg
[2021-04-22 10:56] VITALS: BP 159/109
[~2021-04-22 10:56] MED LIST changes: +ACET-1871 PO; +CEPH500C PO; +PROM12.554 RC
[2021-04-22] MEDS ORDERED: DOXYLAMINE SUCCINATE 25 MG TABLET PO PRN (11:15)
[2021-04-22] MEDS ORDERED: IV NORMAL SALINE 1,000ML 1,000 ML IV SCH (11:15)
[2021-04-22] MEDS ORDERED: CAPSAICIN 0.025% TOPICAL CREAM 60GM TUBE. TP ONE (11:15)
[2021-04-22] MEDS ORDERED: PYRIDOXINE 100 MG/ML VIAL. IV ONE (11:15)
[2021-04-22 11:36] LABS: BASO # 0.1 x10^3/uL (0.0-0.2); BASO % 1 % (0-3); EOS % 0 % (0-3); HEMATOCRIT 34.7 % (36.0-47.0); HEMOGLOBIN 11.9 g/dL (12.0-15.5); LYMPH # 1.4 x10^3/uL (1.0-4.8); LYMPH % 14 % (24-48); MEAN CORPUSCULAR HEMOGLOBIN 34 pg (25-35); MEAN CORPUSCULAR HGB CONC 34 g/dL (31-37); MEAN CORPUSCULAR VOLUME 99 fL (79-100); MONO # 0.3 x10^3/uL (0.0-1.1); MONO % 3 % (0-9); NEUT # 7.9 x10^3uL (1.8-7.7); NEUT % 81 % (31-73); PLATELET COUNT 253 x10^3/uL (140-400); RED BLOOD COUNT 3.52 x10^6/uL (3.50-5.40); RED CELL DISTRIBUTION WIDTH 14.3 % (11.5-14.5); WHITE BLOOD COUNT 9.8 x10^3/uL (4.0-11.0)
[2021-04-22] MEDS ORDERED: ACETAMINOPHEN 500 MG TABLET PO ONE (11:37)
[2021-04-22 11:42] LABS: CALCIUM 8.6 mg/dL (8.5-10.1); CREATININE 0.7 mg/dL (0.6-1.0); GFR 117.3; POTASSIUM 3.5 mmol/L (3.5-5.1)
[2021-04-22 11:45] LABS: PREG TEST PT QUAL POSITIVE (NEG)
[2021-04-22 11:50] LABS: ALBUMIN 3.2 g/dL (3.4-5.0); DIRECT BILIRUBIN 0.1 mg/dL (0.0-0.2); MAGNESIUM 1.8 mg/dL (1.8-2.4); TOTAL BILIRUBIN 0.3 mg/dL (0.2-1.0)
--- NOTE | 2021-04-22 12:34 | EKG ---
[address] [address] Test Date: 2021-04-22 Test Time: 12:09:14 Pat Name: DANDY LEVY Department: Room: Gender: F [employer]: RACHEL : 1990 Requested By: TEODORA PORTER Order Number: [id number] Reading MD: Measurements Intervals [place] Rate: 116 P: 90 OR: 122 QRS: 72 QRSD: 70 T: 29 QT: 302 QTc: 425 Interpretive Statements SINUS TACHYCARDIA OTHERWISE NORMAL ECG RI6.02 No previous ECG available for comparison
[2021-04-22 12:41] LABS: LACTATE DEHYDROGENASE 243 U/L (81-234); LIPASE 43 U/L (73-393)
[2021-04-22] MEDS ORDERED: HYDROmorphone PF 1 MG/ML DISP.SYRIN IVP ONE (12:45)
[2021-04-22] MEDS ORDERED: diphenhydrAMINE HCL 25 MG CAPSULE PO ONE (13:00)
--- NOTE | 2021-04-22 13:09 | PHYS DOC ---
Past History Past Medical History: Anxiety, Constipation, Diabetes, Fibromyalgia, Gallstones, GERD, Hypertension, IBS, Ovarian Cyst, Other Additional Past Medical Histor: HYPEREMESIS, DRUG INDUSED CYCLIC VOMITING,eclampsia(a couple times) Past Surgical History: Cholecystectomy, Additional Past Surgical Histo: exploratory laparoscopy Smoking: Cigarettes, Less than 1pk/day Alcohol Use: None Drug Use: Marijuana General Adult EDM: Chief Complaint: ABDOMINAL PAIN IN HPI: HPI: 30-year-old female approximately 7 months (ob care at [facility]) presents to the ed "I'm in so much pain, give me something for pain." Reports l ower abdominal pain with associated nausea and nonbloody, nonbilious vomiting since yesterday. Review of Systems: Review of Systems: Constitutional: Denies fever or chills Eyes: Denies change in visual acuity HENT: Denies nasal congestion or sore throat Respiratory: Denies cough or shortness of breath Cardiovascular: Denies chest pain or edema GI: Denies bloody stools or diarrhea : Denies dysuria or vaginal bleeding Musculoskeletal: Denies back pain or joint pain Integument: Denies rash Neurologic: Denies headache, focal weakness or sensory changes Endocrine: Denies polyuria or polydipsia Lymphatic: Denies swollen glands Psychiatric: Denies depression or anxiety Current Medications: Current Meds: Current Medications Medications (Trade) Dose Ordered Sig/Geni Start Time Stop Time Status Last Admin Dose Admin Acetaminophen (Tylenol) 500 mg STK-MED ONCE 04/22/21 11:37 04/22/21 11:38 DC Capsaicin (Zostrix) 1 lor 1X ONCE 04/22/21 11:15 04/22/21 11:16 DC Doxylamine Succinate (Unisom) 25 mg PRN QHS PRN 04/22/21 11:15 Hydromorphone HCl (Dilaudid) 0.5 mg 1X ONCE 04/22/21 12:45 04/22/21 12:49 DC Pyridoxine HCl (Vitamin B6) 100 mg 1X ONCE 04/22/21 11:15 04/22/21 11:16 DC 04/22/21 11:29 100 MG Sodium Chloride 1,000 ml @ 1,000 mls/hr Q1H 04/22/21 11:15 04/22/21 12:14 DC 04/22/21 11:29 1,000 MLS/HR Allergies: Allergies: Allergies Coded Allergies Type Severity Reaction Last Updated Verified haloperidol Allergy Unknown 04/22/21 Yes Physical Exam: PE: Constitutional: thrashing/writhing in ed stretcher, steady gait-no antalgic gait, noncompliant with my/nursing/security instructions, refusing to ly still to perform vitals, banging her hand multiple times on ed schaefer screaming "you need to give me something for pain," HENT: Normocephalic, atraumatic, dry mucous membranes Eyes: EOMI, conjunctiva normal, no discharge. Neck: Normal range of motion, supple, Cardiovascular: S1/2 present, tachycardic Lungs & Thorax: Speaking in full sentences, bilateral equal chest rise, no ta chypnea or increased work of breathing, 1 episode of clear emesis in ed Abdomen: soft, no focal ttp, gravid above umbilicus Skin: Warm, dry, no erythema, no rash. [] Extremities: no cyanosis, no lower extremity edema Neurologic: GCS15, Alert and oriented X 3, normal motor function, normal sensory function, no focal deficits noted. [] Psychologic: judgemental normal, normal affect, has decision making capacity Bedside POCUS: FHR > 100 with Current Patient Data: Labs: Laboratory Tests Test 04/22/21 11:05 White Blood Count 9.8 x10^3/uL (4.0-11.0) Red Blood Count 3.52 x10^6/uL (3.50-5.40) Hemoglobin 11.9 g/dL (12.0-15.5) L Hematocrit 34.7 % (36.0-47.0) L Mean Corpuscular Volume 99 fL (79-100) Mean Corpuscular Hemoglobin 34 pg (25-35) Mean Corpuscular Hemoglobin Concent 34 g/dL (31-37) Red Cell Distribution Width 14.3 % (11.5-14.5) Platelet Count 253 x10^3/uL (140-400) Neutrophils (%) (Auto) 81 % (31-73) H Lymphocytes (%) (Auto) 14 % (24-48) L Monocytes (%) (Auto) 3 % (0-9) Eosinophils (%) (Auto) 0 % (0-3) Basophils (%) (Auto) 1 % (0-3) Neutrophils # (Auto) 7.9 x10^3uL (1.8-7.7) H Lymphocytes # (Auto) 1.4 x10^3/uL (1.0-4.8) Monocytes # (Auto) 0.3 x10^3/uL (0.0-1.1) Eosinophils # (Auto) 0.0 x10^3/uL (0.0-0.7) Basophils # (Auto) 0.1 x10^3/uL (0.0-0.2) Sodium Level 137 mmol/L (136-145) Potassium Level 3.5 mmol/L (3.5-5.1) Chloride Level 102 mmol/L (98-107) Carbon Dioxide Level 22 mmol/L (21-32) Anion Gap 13 (6-14) Blood Urea Nitrogen 5 mg/dL (7-20) L Creatinine 0.7 mg/dL (0.6-1.0) Estimated GFR (Cockcroft-Gault) 117.3 Glucose Level 141 mg/dL (70-99) H Calcium Level 8.6 mg/dL (8.5-10.1) Magnesium Level 1.8 mg/dL (1.8-2.4) Total Bilirubin 0.3 mg/dL (0.2-1.0) Direct Bilirubin 0.1 mg/dL (0.0-0.2) Aspartate Amino Transferase (AST) 18 U/L (15-37) Alanine Aminotransferase (ALT) 18 U/L (14-59) Alkaline Phosphatase 91 U/L (46-116) Lactate Dehydrogenase 243 U/L (81-234) H Total Protein 7.0 g/dL (6.4-8.2) Albumin 3.2 g/dL (3.4-5.0) L Lipase 43 U/L (73-393) L Serum Test, Qualitative Positive (NEG) Vital Signs: Vital Signs Date Time Temp Pulse Resp B/P (MAP) Pulse Ox O2 Delivery O2 Flow Rate FiO2 04/22/21 10:56 97.8 118 22 159/109 99 Room Air EKG: EKG: Sinus tachycardia 116 bpm, no axis deviation, normal intervals, T wave inversion lead III, no ST elevations or ST depressions, no active chest pain Radiology/Procedures: Radiology/Procedures: IMAGING REPORT Signed PATIENT: DANDY LEVY ACCOUNT: [id number] : 1990 LOCATION: ER AGE: 30 SEX: F EXAM STATUS: DEP ER ORD. PHYSICIAN: TEODORA PORTER DO REASON: vomiting PROCEDURE: OB LIMITED EXAM: US OB Limited CLINICAL HISTORY: Reason: vomiting / Spl. Instructions: / History: . COMPARISON: None available. TECHNIQUE: Limited transabdominal ultrasound of the uterus was performed. FINDINGS: NUMBER: Single POSITION: cephalic PLACENTA: Location: Anterior Placentation: Normal. Cord insertion: Normal. Cord type: 3 vessel cord. ANATOMY: HEART RATE: 175 COMMENTS: None Current measurements are: BPD - 6.67 centimeters = 26w6d HC -24.80 centimeters = 26 weeks 6 days AC - 21.69 (cm) = 26w1d FL - 5.73 cm = 30 weeks 0 days EFW: 1105 g MATERNAL ANATOMY UTERUS: No abnormalities seen. Placenta appears normal without appreciable hemorrhage. OVARIES/ADNEXAE: No masses seen. CUL-DE-SAC: No fluid. HISTORICAL DATES Last menstrual period: 10/13/2020 CALCULATED DATES EGA (LMP): 27 weeks 2 days MAIN (LMP): July 20, 2021 EGA (US): 27 weeks 3 days MAIN (US): July 19, 2021 IMPRESSION: Single intrauterine as described above. Electronically signed by: Raine Hong MD (04/22/2021 1:38 PM) [facility] DICTATED AND SIGNED BY: RAINE HONG MD DATE: 04/22/21 1333 CC: PCP,NO; TEODORA PORTER DO ~MTH0 0 Heart Score: C/O Chest Pain: No Risk Factors: Risk Factors: DM, Current or recent (<one month) smoker, HTN, HLP, family history of CAD, obesity. Risk Scores: Score 0 - 3: 2.5% MACE over next 6 weeks - Discharge Home Score 4 - 6: 20.3% MACE over next 6 weeks - Admit for Clinical Observation Score 7 - 10: 72.7% MACE over next 6 weeks - Early Invasive Strategies Course & Med Decision Making: Course & Med Decision Making Pertinent Labs and Imaging studies reviewed. (See chart for details) Upon ED arrival patient treated with IV fluids, antiemetics and capsaicin was applied to her abdomen. Tylenol was given. I was present in pts' ED room multiple times for reevaluation -difficult to obtain accurate vital signs given patient's noncompliance with our instructions. Security present at bedside. Patient with decision-making capacity but refusing our medical recommendations. I attempted bedside ultrasound. Patient with normal movement, normal-appearing heart rate but cannot obtain due to patient's noncompliance/frequent moving. Patient is well-known to ED staff for drug-seeking behavior. Patient was informed that would not be giving narcotic medications unless I was able to fully evaluate patient including repeat vital signs and pelvic exam. Patient ambulating in the ED, in and out of her ED room, screaming at myself, staff and security. Multiple attempts to care for patient, including speaking to family on her cell phone. Patient destructive towards medical equipment-broke head of the bed of her ED stretcher and continuously hitting her ed room schaefer asking for pain medication. Pt distracted from care of other pts'. I was unable to fully assess pt and rule out life threatening differential listed below, due to pt compliance. I educated pt on risks of life/limb threatening concerns, risk of losing baby. Pt refusing to comply with medical team and left ed against medical advice. Life/limb-threatening differential includes but is not limited to, , ectopic , malposition/incarcerated uterus, labor, placental abruption or uterine rupture, vaginal trauma, surgical abdomen, placenta previa/accreta/increta/percreta, preeclampsia/aphasia, HELLP syndrome, ovarian cystm torsion, surgical abdomen (perforated bowel, acute appendicitis, etc), chorioamnionitis or cholestasis of . The patient has decided to leave our facility against medical advice. I have assessed patient's ability to make informed decision and feel the patient has the capacity to comprehend information regarding the current medical condition and appreciates the impact of the disease or condition and the consequences of various options for treatment, including foregoing treatment. The patient possesses the ability to evaluate all treatment options, comparing the risks and benefits of each option, communicate his or her choice in a consistent manner over time, and is able to make rational choices. I explained to the patient further testing, treatment, and evaluation I would like to perform in the emergency department visit as well as any possible alternatives that can be accomplished in a timely manner. I have outlined the possible risks of foregoing any or all of these interventions and the patient understands and acknowledges that the decision to leave may result in undesirable consequences such as , permanent disability, and/or loss of current lifestyle. Even though leaving AMA is not ideal, I have instructed the patient to follow any discharge instructions given, take any medications prescribed, and resume care as soon as possible with another provider. This conversation was witnessed by another member of the emergency department staff and we clearly communicated the patient is welcome to return anytime to continue care at our facility. Dragon Disclaimer: Dragon Disclaimer: This electronic medical record was generated, in whole or in part, using a voice recognition dictation system. Departure Departure: Impression: Primary Impression: Left against medical advice Disposition: 07 LEFT AGAINST MEDICAL ADVICE Condition: STABLE Referrals: PCPDELFINO (PCP) TEODORA PORTER DO Apr 22, 2021 13:09
--- NOTE | 2021-04-22 13:40 | RAD ---
EXAM: US OB Limited CLINICAL HISTORY: Reason: vomiting / Spl. Instructions: / History: . COMPARISON: None available. TECHNIQUE: Limited transabdominal ultrasound of the uterus was performed. FINDINGS: NUMBER: Single POSITION: cephalic PLACENTA: Location: Anterior Placentation: Normal. Cord insertion: Normal. Cord type: 3 vessel cord. ANATOMY: HEART RATE: 175 COMMENTS: None Current measurements are: BPD - 6.67 centimeters = 26w6d HC -24.80 centimeters = 26 weeks 6 days AC - 21.69 (cm) = 26w1d FL - 5.73 cm = 30 weeks 0 days EFW: 1105 g MATERNAL ANATOMY UTERUS: No abnormalities seen. Placenta appears normal without appreciable hemorrhage. OVARIES/ADNEXAE: No masses seen. CUL-DE-SAC: No fluid. HISTORICAL DATES Last menstrual period: 10/13/2020 CALCULATED DATES EGA (LMP): 27 weeks 2 days MAIN (LMP): July 20, 2021 EGA (US): 27 weeks 3 days MAIN (US): July 19, 2021 IMPRESSION: Single intrauterine as described above. Electronically signed by: Jaret Hong MD (04/22/2021 1:38 PM) [facility]
== END 2021-04-22 13:07 | disposition left against medical advice (07) ==
LOC: ER 10:56
DX: O21.9 Vomiting of pregnancy, unspecified (principal); R10.30 Lower abdominal pain, unspecified; O24.913 Unspecified diabetes mellitus in pregnancy, third trimester; M79.7 Fibromyalgia; K21.9 Gastro-esophageal reflux disease without esophagitis; O16.3 Unspecified maternal hypertension, third trimester; O99.333 Smoking (tobacco) complicating pregnancy, third trimester; Z3A.28 28 weeks gestation of pregnancy; Z88.8 Allergy status to other drugs, medicaments and biological substances
CPT/HCPCS: 36415; 76815; 80048; 80076; 83615; 83690; 83735; 84703; 85025; 93005; 96361; 96374; 99285; J3415; J7030

== ENCOUNTER 2021-09-04 16:50 | Emergency (ER) | payer OTHER ==
[~2021-09-04 16:50] MED LIST changes: +DICY20TA PO; -DICY20TA3 PO
== END 2021-09-04 17:38 | disposition left against medical advice (07) ==
LOC: ER 16:50
DX: R11.2 Nausea with vomiting, unspecified (principal); R19.7 Diarrhea, unspecified; M79.10 Myalgia, unspecified site; Z53.21 Procedure and treatment not carried out due to patient leaving prior to being seen by health care provider

== ENCOUNTER 2021-10-13 09:21 | Emergency (ER) | payer OTHER ==
[~2021-10-13] VITALS: Ht 154.9 cm; Wt 42.0 kg
[2021-10-13] MEDS ORDERED: ONDANSETRON PF 4 MG/2 ML VIAL. IM ONE (10:15)
[2021-10-13] MEDS ORDERED: diphenhydrAMINE 50 MG/ML VIAL IM ONE (10:15)
--- NOTE | 2021-10-13 10:55 | PHYS DOC ---
Past History Past Medical History: Anxiety, Constipation, Diabetes, Fibromyalgia, Gallstones, GERD, Hypertension, IBS, Ovarian Cyst, Other Additional Past Medical Histor: HYPEREMESIS, DRUG INDUSED CYCLIC VOMITING,eclampsia(a couple times) Past Surgical History: No Surgical History Additional Past Surgical Histo: exploratory laparoscopy Smoking: Cigarettes, Less than 1pk/day Alcohol Use: None Drug Use: Marijuana General Adult EDM: Chief Complaint: NAUSEA/VOMITING/DIARRHEA HPI: HPI: Patient is a 30-year-old female coming in for 2 days of vomiting and occasional diarrhea. Patient complaining of generalized abdominal pain. Has a history of numerous ER visits for cyclic vomiting. Denies any sick contacts, undercooked foods or recent travel. Denies any alcohol or drug use. Denies any complaints Review of Systems: Review of Systems: All other systems within normal limits except for as noted in the HPI Current Medications: Current Meds: Current Medications Medications (Trade) Dose Ordered Sig/Geni Start Time Stop Time Status Last Admin Dose Admin Diphenhydramine HCl (Benadryl) 50 mg 1X ONCE 10/13/21 10:15 10/13/21 10:17 DC 10/13/21 10:24 50 MG Ondansetron HCl (Zofran) 4 mg 1X ONCE 10/13/21 10:15 10/13/21 10:17 DC 10/13/21 10:24 4 MG Allergies: Allergies: Allergies Coded Allergies Type Severity Reaction Last Updated Verified haloperidol Allergy Unknown 04/22/21 Yes Physical Exam: PE: Constitutional: Well developed, well nourished, no acute distress, non-toxic appearance. [] HENT: Normocephalic, atraumatic, bilateral external ears normal, nose normal. [] Eyes: PERRLA, conjunctiva normal, no discharge. [] Neck: No rigidity, supple, no stridor. [] Cardiovascular: Regular rate and rhythm, brisk cap refill [] Lungs & Thorax: Non labored symmetric respirations, no tachypnea or respiratory distress [] Abdomen: Soft, nondistended, no guarding. Skin: Warm, dry, no erythema, no rash. [] Back: Unremarkable Extremities: No deformities, range of motion grossly intact, no lower extremity edema [] Neurologic: Alert and oriented X 3, no focal deficits noted. [] Psychologic: Affect normal, judgement normal, mood normal. [] Current Patient Data: Vital Signs: Vital Signs Date Time Temp Pulse Resp B/P (MAP) Pulse Ox O2 Delivery O2 Flow Rate FiO2 10/13/21 09:34 97.7 85 20 146/82 (103) 99 Room Air EKG: EKG: [] Radiology/Procedures: Radiology/Procedures: [] Heart Score: C/O Chest Pain: No Risk Factors: Risk Factors: DM, Current or recent (<one month) smoker, HTN, HLP, family history of CAD, obesity. Risk Scores: Score 0 - 3: 2.5% MACE over next 6 weeks - Discharge Home Score 4 - 6: 20.3% MACE over next 6 weeks - Admit for Clinical Observation Score 7 - 10: 72.7% MACE over next 6 weeks - Early Invasive Strategies Course & Med Decision Making: Course & Med Decision Making Pertinent Labs and Imaging studies reviewed. (See chart for details) Potassium replaced emergency department, work-up consistent with vomiting. Patient given 1.5 L of fluid and tolerating p.o. she required multiple doses of antiemetics, initial IV placement was difficult so meds were given IM [] Dragon Disclaimer: Dragon Disclaimer: This electronic medical record was generated, in whole or in part, using a voice recognition dictation system. Departure Departure: Impression: Primary Impression: Hypokalemia Additional Impression: Vomiting Disposition: 01 HOME / SELF CARE / HOMELESS Condition: STABLE Referrals: SANJIV CASTRO MD Patient Instructions: Nausea and Vomiting Scripts Potassium Chloride (POTASSIUM CHLORIDE ) 20 Meq Tablet.er 20 MEQ PO DAILY for SUPPLEMENT for 5 Days, #5 TAB Prov: JARAD ESPINOZA MD 10/13/21 Promethazine Hcl (PROMETHAZINE HCL) 25 Mg Supp.rect 25 MG RC PRN Q6HRS PRN for VOMITING for 5 Days, #15 SUPP.RECT Prov: JARAD ESPINOZA MD 10/13/21 Ondansetron (ONDANSETRON ODT) 8 Mg Tab.rapdis 8 MG PO PRN Q8HRS PRN for VOMITING for 5 Days, #15 TAB Prov: JARAD ESPINOZA MD 10/13/21 JARAD ESPINOZA MD Oct 13, 2021 10:55
[2021-10-13 11:04] LABS: BASO % 0 % (0-3); EOS % 0 % (0-3); HEMATOCRIT 41.9 % (36.0-47.0); HEMOGLOBIN 13.7 g/dL (12.0-15.5); LYMPH # 0.8 x10^3/uL (1.0-4.8); LYMPH % 5 % (24-48); MEAN CORPUSCULAR HEMOGLOBIN 32 pg (25-35); MEAN CORPUSCULAR HGB CONC 33 g/dL (31-37); MEAN CORPUSCULAR VOLUME 98 fL (79-100); MONO # 0.4 x10^3/uL (0.0-1.1); MONO % 2 % (0-9); NEUT % 92 % (31-73); PLATELET COUNT 213 x10^3/uL (140-400); RED BLOOD COUNT 4.29 x10^6/uL (3.50-5.40); RED CELL DISTRIBUTION WIDTH 14.5 % (11.5-14.5); WHITE BLOOD COUNT 15.2 x10^3/uL (4.0-11.0)
[2021-10-13 11:15] LABS: HEMOGLOBIN ISTAT 14.3 gm/dL; POTASSIUM ISTAT 3.3 mmol/L (3.5-5.0)
[2021-10-13] MEDS ORDERED: METOCLOPRAMIDE HCL 10 MG/2 ML VIAL. IM ONE (11:45)
[2021-10-13] MEDS ORDERED: IV NORMAL SALINE 1,000ML 1,000 ML IV ONE ×2 (11:45→13:45)
[2021-10-13] MEDS ORDERED: DICYCLOMINE 20 MG/2 ML VIAL. IM ONE (12:30)
[2021-10-13] MEDS ORDERED: ONDANSETRON PF 4 MG/2 ML VIAL. IVP ONE (12:30)
[2021-10-13 14:14] VITALS: BP 143/81
[2021-10-13] MEDS ORDERED: POTASSIUM CHLORIDE 20 MEQ TABLET.ER. PO ONE (14:30)
[2021-10-13 14:42] LABS: BACTERIA,URINE MOD /HPF (0-FEW); BILIRUBIN,URINE NEG (NEG); CLARITY,URINE HAZY; COLOR,URINE YELLOW; GLUCOSE,URINE NEG (NEG); NITRITE,URINE NEG (NEG); SQUAMOUS EPITHELIAL CELL,UR MOD /LPF; UROBILINOGEN,URINE 0.2 mg/dL (0.2 mg/dL)
[2021-10-13] MEDS ORDERED: PROMETHAZINE 25 MG SUPP.RECT. PR ONE (15:30)
[2021-10-13 15:35] LABS: U PREG PATIENT NEGATIVE (NEG)
[2021-10-13 15:39] LABS: % BANDS 4 % (0-9); % LYMPHS 6 % (24-48); % MONOS 4 % (0-10); % SEGS 86 % (35-66)
[2021-10-13] MEDS ORDERED: ONDA8TAB15 PO (15:39)
[2021-10-13] MEDS ORDERED: PROM25SU33 RC (15:39)
[2021-10-13] MEDS ORDERED: POTA20TA4 PO (15:40)
[2021-10-13 15:41] LABS: PLT ESTIMATE ADEQUATE (ADEQUATE)
[2021-10-13 17:51] LABS: BARBITURATES NEG (NEG); BENZODIAZEPINES NEG (NEG); CANNABINOIDS POS (NEG); COCAINE NEG (NEG); METHADONE NEG (NEG); OPIATES NEG (NEG); PHENCYCLIDINE NEG (NEG)
[2021-10-13 17:56] LABS: AMPHETAMINE/METHAMPHETAMINE NEG (NEG)
[2021-10-13 18:28] LABS: CALCIUM 9.3 mg/dL (8.5-10.1); CREATININE 0.7 mg/dL (0.6-1.0); GFR 117.3; POTASSIUM 4.4 mmol/L (3.5-5.1)
[2021-10-13 18:33] LABS: TOTAL BILIRUBIN 0.4 mg/dL (0.2-1.0); TOTAL PROTEIN 8.1 g/dL (6.4-8.2)
== END 2021-10-13 16:05 | disposition home or self-care (01) ==
LOC: ER 09:21
DX: E87.6 Hypokalemia (principal); R10.84 Generalized abdominal pain; F41.9 Anxiety disorder, unspecified; E11.9 Type 2 diabetes mellitus without complications; M79.7 Fibromyalgia; K21.9 Gastro-esophageal reflux disease without esophagitis; I10 Essential (primary) hypertension; F17.210 Nicotine dependence, cigarettes, uncomplicated; Z88.8 Allergy status to other drugs, medicaments and biological substances
CPT/HCPCS: 36415; 80047; 80053; 80307; 81001; 81025; 83690; 85007; 85025; 87086; 96361; 96372; 96374; 96375; 99284; J0500; J1200; J2405; J3010; J7030; 87077; 87186

== ENCOUNTER 2021-10-14 22:39 | Emergency (ER) | payer OTHER ==
[~2021-10-14] VITALS: Ht 154.9 cm; Wt 42.0 kg
[~2021-10-14 22:39] MED LIST changes: +ONDA8TAB15 PO; +POTA20TA4 PO
[2021-10-14] MEDS ORDERED: diphenhydrAMINE 50 MG/ML VIAL ONE (23:36)
[2021-10-14] MEDS ORDERED: METOCLOPRAMIDE HCL 10 MG/2 ML VIAL. ONE (23:36)
[2021-10-14] MEDS ORDERED: IV NORMAL SALINE 1,000ML 1,000 ML IV ONE (23:45)
[2021-10-14] MEDS ORDERED: METOCLOPRAMIDE HCL 10 MG/2 ML VIAL. IVP ONE (23:45)
[2021-10-14] MEDS ORDERED: diphenhydrAMINE 50 MG/ML VIAL IVP ONE (23:45)
[2021-10-15 00:03] LABS: CALCIUM 8.9 mg/dL (8.5-10.1); CREATININE 0.8 mg/dL (0.6-1.0); GFR 100.6; POTASSIUM 3.3 mmol/L (3.5-5.1)
[2021-10-15 00:09] LABS: ALBUMIN 3.5 g/dL (3.4-5.0); ALBUMIN/GLOBULIN RATIO 0.8 (1.0-1.7); TOTAL BILIRUBIN 0.4 mg/dL (0.2-1.0); TOTAL PROTEIN 7.8 g/dL (6.4-8.2)
[2021-10-15 00:10] LABS: BASO # 0.1 x10^3/uL (0.0-0.2); BASO % 1 % (0-3); EOS % 0 % (0-3); HEMATOCRIT 42.1 % (36.0-47.0); HEMOGLOBIN 14.1 g/dL (12.0-15.5); LYMPH # 1.5 x10^3/uL (1.0-4.8); LYMPH % 10 % (24-48); MEAN CORPUSCULAR HEMOGLOBIN 32 pg (25-35); MEAN CORPUSCULAR HGB CONC 33 g/dL (31-37); MEAN CORPUSCULAR VOLUME 96 fL (79-100); MONO # 0.8 x10^3/uL (0.0-1.1); MONO % 5 % (0-9); NEUT # 12.5 x10^3uL (1.8-7.7); NEUT % 84 % (31-73); PLATELET COUNT 239 x10^3/uL (140-400); RED BLOOD COUNT 4.37 x10^6/uL (3.50-5.40); RED CELL DISTRIBUTION WIDTH 14.7 % (11.5-14.5)
--- NOTE | 2021-10-15 00:11 | PHYS DOC ---
Past History Past Medical History: Anxiety, Constipation, Diabetes, Fibromyalgia, Gallstones, GERD, Hypertension, IBS, Ovarian Cyst, Other Additional Past Medical Histor: HYPEREMESIS, DRUG INDUSED CYCLIC VOMITING,eclampsia(a couple times) Past Surgical History: No Surgical History Additional Past Surgical Histo: exploratory laparoscopy Smoking: Cigarettes, Less than 1pk/day Alcohol Use: None Drug Use: Marijuana General Adult EDM: Chief Complaint: MULTIPLE COMPLAINTS HPI: HPI: 30-year-old female returns emergency room with continued nausea and vomiting. She states that she took her Zofran suppository and still has nausea. She is well-known to the emergency room with this complaint. She denies any new complaints or changes in her medical history. She would like to be tested for Covid 19. Review of Systems: Review of Systems: Constitutional: Denies fever or chills Eyes: Denies change in visual acuity HENT: Denies nasal congestion or sore throat Respiratory: Denies cough or shortness of breath Cardiovascular: Denies chest pain or edema GI: Generalized abdominal pain, nausea, vomiting. : Denies dysuria Musculoskeletal: Denies back pain or joint pain Integument: Denies rash Neurologic: Denies headache, focal weakness or sensory changes Endocrine: Denies polyuria or polydipsia Lymphatic: Denies swollen glands Psychiatric: Denies depression or anxiety Current Medications: Current Meds: Current Medications Medications (Trade) Dose Ordered Sig/Geni Start Time Stop Time Status Last Admin Dose Admin Diphenhydramine HCl (Benadryl) 50 mg STK-MED ONCE 10/14/21 23:36 10/14/21 23:36 DC Metoclopramide HCl (Reglan Vial) 10 mg STK-MED ONCE 10/14/21 23:36 10/14/21 23:36 DC Sodium Chloride 1,000 ml @ 1,000 mls/hr 1X ONCE 10/14/21 23:45 10/15/21 00:44 10/14/21 23:37 1,000 MLS/HR Allergies: Allergies: Allergies Coded Allergies Type Severity Reaction Last Updated Verified haloperidol Allergy Intermediate 10/14/21 Yes Physical Exam: PE: Constitutional: Well developed, well nourished, no acute distress, non-toxic appearance. [] HENT: Normocephalic, atraumatic, bilateral external ears normal, oropharynx moist, no oral exudates, nose normal. [] Eyes: PERRLA, EOMI, conjunctiva normal, no discharge. [] Neck: Normal range of motion, no tenderness, supple, no stridor. [] Cardiovascular: Heart rate regular rhythm, no murmur [] Lungs & Thorax: Bilateral breath sounds clear to auscultation [] Abdomen: Bowel sounds normal, soft, no tenderness, no masses, no pulsatile masses. [] Skin: Warm, dry, no erythema, no rash. [] Back: No tenderness, no CVA tenderness. [] Extremities: No tenderness, no cyanosis, no clubbing, ROM intact, no edema. [] Neurologic: Alert and oriented X 3, normal motor function, normal sensory function, no focal deficits noted. [] Psychologic: Affect dramatic, judgement normal, mood anxious. [] Current Patient Data: Vital Signs: Vital Signs Date Time Temp Pulse Resp B/P (MAP) Pulse Ox O2 Delivery O2 Flow Rate FiO2 10/14/21 23:05 98.0 85 18 152/112 (125) 99 Room Air EKG: EKG: [] Radiology/Procedures: Radiology/Procedures: [] Heart Score: C/O Chest Pain: N/A Risk Factors: Risk Factors: DM, Current or recent (<one month) smoker, HTN, HLP, family history of CAD, obesity. Risk Scores: Score 0 - 3: 2.5% MACE over next 6 weeks - Discharge Home Score 4 - 6: 20.3% MACE over next 6 weeks - Admit for Clinical Observation Score 7 - 10: 72.7% MACE over next 6 weeks - Early Invasive Strategies Course & Med Decision Making: Course & Med Decision Making Pertinent Labs and Imaging studies reviewed. (See chart for details) The patient has been given Toradol, normal saline, 8 mg of Zofran, 10 mg Reglan, 25 mg of Benadryl. The patient's labs are significant for slightly elevated white count of 15. She has had no further vomiting in the emergency room. She is stable for discharge at this time. [] Dragon Disclaimer: Dragon Disclaimer: This electronic medical record was generated, in whole or in part, using a voice recognition dictation system. Departure Departure: Impression: Primary Impression: Cyclic vomiting syndrome Disposition: HOME / SELF CARE / HOMELESS Condition: STABLE Referrals: PCP,NO (PCP) Patient Instructions: Cyclic Vomiting Syndrome DANYELLE HENDRICKS DO Oct 15, 2021 00:11
[2021-10-15] MEDS ORDERED: ONDANSETRON PF 4 MG/2 ML VIAL. ONE (00:15)
[2021-10-15 00:30] LABS: PLT ESTIMATE ADEQUATE (ADEQUATE)
[2021-10-15] MEDS ORDERED: KETOROLAC 15 MG/ML VIAL. IVP ONE (00:30)
[2021-10-15] MEDS ORDERED: ONDANSETRON PF 4 MG/2 ML VIAL. IVP ONE (00:30)
[2021-10-15] MEDS ORDERED: diphenhydrAMINE 50 MG/ML VIAL IVP ONE (02:00)
[2021-10-15] MEDS ORDERED: IV NORMAL SALINE 1,000ML 1,000 ML IV ONE (02:00)
[2021-10-15 02:24] VITALS: BP 153/93
== END 2021-10-15 02:24 | disposition home or self-care (01) ==
LOC: ER 22:39
DX: R11.15 Cyclical vomiting syndrome unrelated to migraine (principal); E11.9 Type 2 diabetes mellitus without complications; M79.7 Fibromyalgia; K21.9 Gastro-esophageal reflux disease without esophagitis; I10 Essential (primary) hypertension; F17.210 Nicotine dependence, cigarettes, uncomplicated; Z20.822 Contact with and (suspected) exposure to COVID-19; Z88.8 Allergy status to other drugs, medicaments and biological substances
CPT/HCPCS: 36415; 80053; 85025; 96361; 96374; 96375; 96376; 99284; C9803; J1200; J1885; J2405; J2765; J7030; U0003

== ENCOUNTER 2021-12-19 23:20 | Emergency (ER) | payer OTHER ==
[~2021-12-19] VITALS: Ht 152.4 cm; Wt 51.8 kg
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
[2021-12-20] MEDS ORDERED: diphenhydrAMINE HCL 25 MG CAPSULE PO ONE (00:30)
[2021-12-20] MEDS ORDERED: ACETAMINOPHEN 500 MG TABLET PO ONE (00:30)
[2021-12-20 00:46] VITALS: BP 122/74
[2021-12-20 00:50] LABS: BACTERIA,URINE FEW /HPF (0-FEW); CLARITY,URINE HAZY; COLOR,URINE YELLOW; GLUCOSE,URINE NEG (NEG); NITRITE,URINE NEG (NEG); SQUAMOUS EPITHELIAL CELL,UR FEW /LPF; UROBILINOGEN,URINE 0.2 mg/dL (0.2 mg/dL)
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
== END 2021-12-20 00:48 | disposition home or self-care (01) ==
LOC: ER 23:20
DX: S06.0X9A Concussion with loss of consciousness of unspecified duration, initial encounter (principal); R51.9 Headache, unspecified; F41.9 Anxiety disorder, unspecified; E11.9 Type 2 diabetes mellitus without complications; M79.7 Fibromyalgia; K21.9 Gastro-esophageal reflux disease without esophagitis; I10 Essential (primary) hypertension; F17.210 Nicotine dependence, cigarettes, uncomplicated; Z88.8 Allergy status to other drugs, medicaments and biological substances; Y08.89XA Assault by other specified means, initial encounter; Y93.89 Activity, other specified; Y92.89 Other specified places as the place of occurrence of the external cause; Y99.8 Other external cause status
CPT/HCPCS: 70450; 81001; 81025; 87086; 99284; Q0163

== ENCOUNTER 2021-12-20 08:27 | Emergency (ER) | payer OTHER ==
[~2021-12-20] VITALS: Ht 152.4 cm; Wt 51.8 kg
[2021-12-20] MEDS ORDERED: IV NORMAL SALINE 1,000ML 1,000 ML IV ONE (08:45)
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
[2021-12-20 09:33] LABS: BASO % 0 % (0-3); EOS % 1 % (0-3); HEMATOCRIT 38.9 % (36.0-47.0); HEMOGLOBIN 12.9 g/dL (12.0-15.5); LYMPH # 2.2 x10^3/uL (1.0-4.8); LYMPH % 51 % (24-48); MEAN CORPUSCULAR HEMOGLOBIN 33 pg (25-35); MEAN CORPUSCULAR HGB CONC 33 g/dL (31-37); MEAN CORPUSCULAR VOLUME 99 fL (79-100); MONO # 0.3 x10^3/uL (0.0-1.1); MONO % 7 % (0-9); NEUT # 1.8 x10^3uL (1.8-7.7); NEUT % 41 % (31-73); PLATELET COUNT 261 x10^3/uL (140-400); RED BLOOD COUNT 3.94 x10^6/uL (3.50-5.40); RED CELL DISTRIBUTION WIDTH 15.5 % (11.5-14.5); WHITE BLOOD COUNT 4.3 x10^3/uL (4.0-11.0)
[2021-12-20 09:43] LABS: CREATININE 0.6 mg/dL (0.6-1.0); GFR 139.3; POTASSIUM 3.6 mmol/L (3.5-5.1)
[2021-12-20 09:56] LABS: ALBUMIN/GLOBULIN RATIO 1.3 (1.0-1.7); TOTAL BILIRUBIN 0.3 mg/dL (0.2-1.0)
[2021-12-20 11:19] LABS: BARBITURATES NEG (NEG); BENZODIAZEPINES NEG (NEG); CANNABINOIDS POS (NEG); COCAINE NEG (NEG); METHADONE NEG (NEG); OPIATES NEG (NEG); PHENCYCLIDINE NEG (NEG)
[2021-12-20 11:27] LABS: AMPHETAMINE/METHAMPHETAMINE NEG (NEG)
[2021-12-20 11:29] LABS: BACTERIA,URINE 0 /HPF (0-FEW); CLARITY,URINE CLOUDY; COLOR,URINE YELLOW; GLUCOSE,URINE NEG (NEG); NITRITE,URINE NEG (NEG); SQUAMOUS EPITHELIAL CELL,UR MANY /LPF; UROBILINOGEN,URINE 0.2 mg/dL (0.2 mg/dL)
[2021-12-20 11:45] VITALS: BP 154/78
== END 2021-12-20 12:00 | disposition home or self-care (01) ==
LOC: ER 08:27
DX: R41.82 Altered mental status, unspecified (principal); F41.9 Anxiety disorder, unspecified; E11.9 Type 2 diabetes mellitus without complications; M79.7 Fibromyalgia; K21.9 Gastro-esophageal reflux disease without esophagitis; I10 Essential (primary) hypertension; F17.210 Nicotine dependence, cigarettes, uncomplicated; Z88.8 Allergy status to other drugs, medicaments and biological substances
CPT/HCPCS: 36415; 80053; 80307; 81001; 81025; 82947; 83605; 85025; 87086; 96360; 96361; 99283; J7030